=== PATIENT | female | born 1955 | race Caucasian/White ===

== ENCOUNTER → 2017-09-27 | Outpatient (POV) | payer BC, SELFPAY | PROVIDERS: Family Provider Family Medicine; PCP Family Medicine; Visit Provider Specialist | DX: R20.2 Paresthesia of skin (principal); M79.605 Pain in left leg; M79.604 Pain in right leg | CPT/HCPCS: 95886; 95908 ==

== ENCOUNTER → 2017-11-25 09:07 | Outpatient (POV) | payer BC, SELFPAY | PROVIDERS: Visit Provider Dermatology | DX: Z00.00 Encounter for general adult medical examination without abnormal findings (principal) ==

== ENCOUNTER → 2018-01-10 11:29 | Outpatient (POV) | payer BC, SELFPAY | PROVIDERS: Visit Provider Physician Assistant | DX: Z00.00 Encounter for general adult medical examination without abnormal findings (principal) ==

== ENCOUNTER → 2018-02-07 10:37 | Outpatient (POV) | payer BC, SELFPAY | PROVIDERS: Visit Provider Physician Assistant | DX: Z00.00 Encounter for general adult medical examination without abnormal findings (principal) ==

== ENCOUNTER → 2018-03-07 08:14 | Outpatient (POV) | payer BC, SELFPAY | PROVIDERS: Family Provider Family Medicine; Visit Provider Physician Assistant | DX: Z00.00 Encounter for general adult medical examination without abnormal findings (principal) ==

== ENCOUNTER → 2018-06-09 10:41 | Outpatient (CLI) | payer BC, SELFPAY ==
[2018-06-09 11:13] LABS: Basophils % 0.9 % (0.1-2.0); Eosinophils # 0.2 K/mm3 (0.0-0.4); Hematocrit 38.9 % (37.0-47.0); Hemoglobin 12.7 g/dL (12.2-16.2); Lymphocytes # 1.5 K/mm3 (0.7-4.5); Lymphocytes % 28.6 K/mm3 (10-50); Mean Corpuscular HGB Conc 32.7 g/dL (31.8-35.4); Mean Corpuscular Hemoglobin 29.8 pg (27.0-31.2); Mean Corpuscular Volume 91.2 fl (81-99); Mean Platelet Volume 8.8 fl (7.4-10.4); Monocytes # 0.2 K/mm3 (0.1-1.0); Monocytes % 4.2 % (1.7-9.3); Neutrophils # 3.2 K/mm3 (1.8-7.8); Neutrophils % 63.3 % (37.0-80.0); Platelet Count 246 K/mm3 (142-424); Red Blood Count 4.27 M/mm3 (4.20-5.40); Red Cell Distribution Width 13.2 % (11.5-17.5); White Blood Count 5.1 K/mm3 (4.8-10.8)
[2018-06-09 11:38] LABS: Alanine Aminotransferase 25 U/L (12-78); Albumin Level 3.7 gm/dL (3.4-5.0); Alkaline Phosphatase 90 U/L (46-116); Anion Gap 9.3 mEq/L (5-15); Aspartate Amino Transferase 16 U/L (15-37); Bilirubin,Total 0.4 mg/dL (0.2-1.0); Blood Urea Nitrogen 21 mg/dL (7-18); Calcium 8.7 mg/dL (8.5-10.1); Carbon Dioxide 28 mmol/L (21.0-32.0); Chloride 108 mmol/L (98-107); Chol/HDL Ratio 4.1 (1-3.5); Cholesterol 184 mg/dL (140-200); Creatinine,Serum 0.84 mg/dL (0.55-1.02); Estimated Glomerular Filt Rate 69 ml/min (>60); GFR (African American) 83 ML/MIN (>60); Globulin 3.6 gm/dl (1.3-3.2); Glucose 91 mg/dL (74-106); HDL Cholesterol 45 mg/dL (29-89); LDL Cholesterol 103 mg/dL (0-130); Magnesium 2.1 mg/dL (1.4-2.2); Potassium 3.3 mmoL/L (3.5-5.1); Sodium 142 mmol/L (136-145); Total Protein,Serum 7.3 gm/dL (6.4-8.2); Triglycerides 181 mg/dL (30-200); VLDL Cholesterol 36 mg/dL (0-40)
[2018-06-10 17:12] LABS: Folate >20.0 ng/mL (>3.0); Vitamin B12 459 pg/mL (232-1245)
== END ==
PROVIDERS: Visit Provider Family Medicine
DX: I10 Essential (primary) hypertension (principal); E78.5 Hyperlipidemia, unspecified; G62.9 Polyneuropathy, unspecified
CPT/HCPCS: 36415; 80053; 80061; 82607; 82746; 83735; 85025

== ENCOUNTER → 2018-11-01 10:06 | Outpatient (CLI) | payer BC, SELFPAY ==
--- NOTE | 2018-11-01 10:11 | MM_ITS ---
MM Dig screening mamm BI w/CAD CAD Screening COMPARISON: Digital mammograms with CAD 09/20/2017 and 09/11/2016 INDICATION: There is no personal or family history of breast cancer. There has been a previous biopsy left breast for benign disease. TECHNIQUE: Standard CC and MLO images were obtained. R2 CAD reviewed. FINDINGS: Mild to moderate scattered fibroglandular densities are seen throughout both breasts. Again noted is a stable asymmetric fibroglandular density upper outer quadrant right breast. There is no suspicious lesion and no suspicious microcalcifications. IMPRESSION: Stable exam with no suspicious lesion seen. BI-RADS Category: 2 Benign Finding(s) RECOMMENDED FOLLOW-UP: 1YR - 1 YEAR FOLLOW-UP (A letter has been sent to the patient regarding results of the study.)
== END ==
PROVIDERS: PCP Family Medicine; Visit Provider Family Medicine
DX: Z12.31 Encounter for screening mammogram for malignant neoplasm of breast (principal)
CPT/HCPCS: 77067

== ENCOUNTER → 2019-11-06 08:17 | Outpatient (CLI) | payer BC, SELFPAY ==
--- NOTE | 2019-11-06 08:20 | MM_ITS ---
PROCEDURE: MM DIG SCREENING MAMM BI W/CAD Patient Age:64Y CLINICAL INDICATION: SCREENING routine screening mammogram. Takes estrogen. Previous hysterectomy age 41. Previous benign surgical excisional biopsy left breast Family history: Noncontributory COMPARISON: [facility] DIG MAMM-SCREEN [facility] from 08/26/2015 [facility] DIG MAMM-SCREEN [facility] from 09/11/2016 [facility] DIG MAMM-SCREEN [facility]Y W/CAD from 09/20/2017 [facility] MM Dig screening mamm BI w/CAD from 11/01/2018 TECHNIQUE: Standard CC and MLO images were obtained. R2 CAD reviewed. FINDINGS: Fatty changes both breast with only minimal residual fibroglandular elements most evident towards upper-outer quadrant right breast the of this yields a small asymmetric area of density the right breast which dissipates 1 one-view to another and appear stable. Not of concern. Merely minimal fibroglandular tissue at upper-outer quadrant bilaterally again noted. Left breast is unremarkable: Stable. Bilateral follow-up in 1 year recommended IMPRESSION: A stable bilateral mammogram. No areas of concern; no significant change Bilateral follow-up 1 year recommended BI-RAD Category: 1 Negative FOLLOW-UP: 1YR 1 Year Follow-up the (A letter has been sent to the patient regarding results of the study.) Dictated by: Manolo Coelho MD 11/08/2019 15:12 Electronically signed by Manolo Coelho MD in [place] 11/08/2019 15:12
== END ==
PROVIDERS: PCP Family Medicine; Visit Provider Family Medicine
DX: Z12.31 Encounter for screening mammogram for malignant neoplasm of breast (principal)
CPT/HCPCS: 77067

== ENCOUNTER → 2020-03-14 10:05 | Outpatient (CLI) | payer BC, SELFPAY ==
--- NOTE | 2020-03-14 10:16 | XR_ITS ---
PROCEDURE: XR KNEE LT 3V CLINICAL INDICATION: S/P FALL, KNEE PAIN COMPARISON: No exams were available for comparison FINDINGS: No fracture or dislocation. No lytic or blastic change. There is normal mineralization. There are mild osteoarthritic changes of the medial compartment and patellofemoral joint. Other findings:None. IMPRESSION: Mild osteoarthritis, no acute finding Dictated by: Uvaldo Lopez MD 03/14/2020 12:59 Electronically signed by Uvaldo Lopez MD in [place] 03/14/2020 12:59
== END ==
PROVIDERS: PCP Family Medicine; Visit Provider Family Medicine
DX: M25.562 Pain in left knee (principal)
CPT/HCPCS: 73562

== ENCOUNTER → 2020-05-22 08:44 | Outpatient (CLI) | payer BC, SELFPAY ==
--- NOTE | 2020-05-22 08:49 | XR_ITS ---
PROCEDURE: XR DEXA AXIAL SKELETON CLINICAL HISTORY: POST MENOPAUSAL COMPARISON: No exams were available for comparison FINDINGS: Right hip neck density is 0.959 with a t-score of 1.0. Left hip neck density is 0.903 with a t-score of 0.5. Lumbar spine total density is 1.126 with a t-score of 0.7. IMPRESSION: This patient is considered normal according to the World Health Organization criteria. Fracture risk is low. Based on these results of follow-up exam is recommended in 2 years Dictated by: Uvaldo Lopez MD 05/22/2020 17:33 Electronically signed by Uvaldo Lopez MD in [place] 05/22/2020 23:10
== END ==
PROVIDERS: PCP Family Medicine; Visit Provider Family Medicine
DX: Z78.0 Asymptomatic menopausal state (principal)
CPT/HCPCS: 77080

== ENCOUNTER → 2020-06-06 12:16 | Outpatient (CLI) | payer BC, SELFPAY ==
--- NOTE | 2020-06-06 12:42 | MR_ITS ---
PROCEDURE: MR LUMBAR SPINE WO CON CLINICAL INDICATION: lumbar pain, lower extremity pain LBP. LT LEG PAIN, NUMBNESS, AND TINGLING. [id number]. NO INJURY. PRIOR X-RAY 09-27-17 COMPARISON: LS5 LUMBAR SPINE 5 VIEWS from 09/27/2017 TECHNIQUE: Standard multiplanar multiecho sequences are performed without contrast. 3-D MIP and myelographic images are also rendered and reviewed FINDINGS: There is normal alignment. The spinal cord ends at the T12 level. L1-L2: Unremarkable. L2-L3: Minimal bulging disc with mild degenerative disc disease with mild facet and ligamentum hypertrophy. Small anterior osteophytes. L3-L4: Unremarkable. L4-5: Minimal bulging disc. There is a small right broad-based lateral disc protrusion along with mild facet and ligamentum hypertrophy. There is moderate to severe right foraminal narrowing.. L5-S1: Asymmetric bulging disc eccentric toward the left abutting the anterior aspect of the left S1 nerve root. No extruded herniated disc is evident. No canal stenosis. IMPRESSION: 1. L2-L3: Minimal bulging disc with mild degenerative disc disease with mild facet and ligamentum hypertrophy. Small anterior osteophytes. 2. L4-5: Minimal bulging disc. There is a small right broad-based lateral disc protrusion along with mild facet and ligamentum hypertrophy. There is moderate to severe right foraminal narrowing.. 3. L5-S1: Asymmetric bulging disc eccentric toward the left abutting the anterior aspect of the left S1 nerve root. Dictated by: Uvaldo Lopez MD 06/07/2020 11:37 Electronically signed by Uvaldo Lopez MD in [place] 06/07/2020 11:37
== END ==
PROVIDERS: PCP Family Medicine; Visit Provider Specialist
DX: G89.29 Other chronic pain (principal); M54.16 Radiculopathy, lumbar region; M79.604 Pain in right leg; M79.605 Pain in left leg; R20.2 Paresthesia of skin
CPT/HCPCS: 72148; 76376

== ENCOUNTER → 2020-07-25 13:40 | Outpatient (CLI) | payer BC, SELFPAY | PROVIDERS: Visit Provider Urology | DX: N39.0 Urinary tract infection, site not specified (principal) | CPT/HCPCS: 87086; 87088; 87186 ==

== ENCOUNTER 2020-08-16 09:00 | Outpatient (RCR) | payer BC, SELFPAY | END 2020-08-16 09:47 | disposition home or self-care (01) | LOC: PT 09:00 | PROVIDERS: PCP Family Medicine; Visit Provider Neurological Surgery | DX: M51.16 Intervertebral disc disorders with radiculopathy, lumbar region (principal) | CPT/HCPCS: 97010; 97014; 97110; 97163; G0283 ==

== ENCOUNTER → 2020-11-08 08:26 | Outpatient (CLI) | payer BC, SELFPAY ==
--- NOTE | 2020-11-08 08:29 | MM_ITS ---
PROCEDURE: MM DIG SCREENING MAMM BI W/CAD Digital Breast Tomosynthesis Included CLINICAL INDICATION: SCREENING There is no personal or family history of breast cancer. There has been a previous biopsy left breast for benign disease. The patient currently is on estrogen. COMPARISON: Digital mammograms 11/06/2019 TECHNIQUE: Standard CC and MLO images and 3D Tomosynthesis was obtained. R2 CAD reviewed. FINDINGS: Mild to moderate scattered fibroglandular densities are seen throughout both breast and the findings are bilateral and symmetrical. There are no CAD markings. Wade images were reviewed showing no suspicious abnormality in either breast. There are no suspicious microcalcifications. IMPRESSION: Fibrofatty parenchyma with no suspicious lesions seen BI-RAD Category: 1 Negative FOLLOW-UP: 1YR 1 Year Follow-up (A letter has been sent to the patient regarding results of the study.) Dictated by: Dr. Gregg Loya MD 11/10/2020 11:17 Dr. Gregg Loya MD in [place] 11/10/2020 11:17
== END ==
PROVIDERS: PCP Family Medicine; Visit Provider Family Medicine
DX: Z12.31 Encounter for screening mammogram for malignant neoplasm of breast (principal)
CPT/HCPCS: 77063; 77067

== ENCOUNTER 2021-01-05 02:46 | Inpatient (IN) | payer BC, SELFPAY ==
[2021-01-05] VITALS (13 sets, daily range): BP systolic 132–184; BP diastolic 52–96; PULSE 68–90; RESP 14–22; TEMP 36.6–36.9; O2SAT 91–97; BMI 28.3; BMI 24.1
--- NOTE | 2021-01-05 03:04 | CT_ITS ---
PROCEDURE: CT ABDOMEN PELVIS W CON CLINICAL INDICATION: ruq,rlq abd pain/flank pain COMPARISON: No exams were available for comparison TECHNIQUE: IV Contrast: 75ML OPTIRAY 350 Oral Contrast none given Axial images obtained with sagittal and coronal reformats. All CT scans at the facility use one or more dose reduction, viz: automated exposure control, ma/kV adjustment per patient size (including targeted exams where dose is matched to indication, i.e. head), or iterative reconstruction technique. FINDINGS: Lower thorax: There is mild atelectasis in the posterior gutters bilaterally. ABDOMEN: Liver: Liver is normal in size and no focal lesions. There is borderline hepatic steatosis. Gallbladder: Prominent hydropic appearance of the gallbladder with no definite gallstones seen Pancreas: There is a moderate diffuse peripancreatic fat stranding suggesting mild or early inflammatory change, there is minimal fluid tracking along the right and left anterior pararenal space. Spleen: unremarkable Adrenals: unremarkable Kidneys/ureters: The kidneys are normal in size and show symmetrical function. There is a tiny benign-appearing cortical cyst upper pole left kidney. ABDOMEN & PELVIS: Stomach bowel: There may be a small hiatal hernia. The stomach is unremarkable. The descending duodenum and duodenal sweep are fluid-filled and mildly distended likely reflecting a mild ileus secondary to the inflammatory changes of the pancreas. The small bowel is normal. There is moderate stool in the cecum and ascending colon. There is mild diffuse diverticulosis of the descending colon. There is no diverticulitis. Peritoneum: No abnormal fluid collections. No obvious inflammatory changes. No free air. Lymph nodes: No enlarged lymph nodes apparent. Vasculature: No evidence of abdominal aortic aneurysm. No retroperitoneal hemorrhage evident. Bones: No acute fracture PELVIS: Reproductive: The patient is post hysterectomy. Bladder: The urinary bladder is partially distended with urine, there is no free fluid in the pelvis. Appendix: Post appendectomy IMPRESSION: Mild diffuse early acute pancreatitis inflammatory changes slightly more prominent about the head the pancreas than body or tail. Mild reflex ileus of the duodenal sweep and similar reflex hydropic change of the gallbladder. Mild diffuse hepatic steatosis Dictated by: Dr. Gregg Loya MD 01/05/2021 08:48 Dr. Gregg Loya MD in [place] 01/05/2021 08:48
[2021-01-05 03:08] LABS: Microscopic, Urine URINE MICROSCOPIC (MICROSCOPIC)
[2021-01-05 03:11] LABS: Appearance,Urine CLOUDY (Clear); Blood, Urine Negative (Negative); Color,Urine DK YELLOW (Yellow); Glucose,Urine (UA) Negative (Negative); Ketones,Urine Negative (Negative); Leukocyte Esterase,Urine Negative (Negative); Nitrate,Urine POSITIVE (Negative); Protein,Urine Negative (Negative); Specific Gravity, Urine 1.025 (1.005-1.030); Urobilinogen,Urine 0.2 EU/dl (0.2)
[2021-01-05 03:15] LABS: Bilirubin,Urine 1+ (Negative)
[2021-01-05 03:16] LABS: Basophils % 0.3 % (0.1-2.0); Eosinophils # 0.1 K/mm3 (0.0-0.4); Eosinophils % 1.2 % (0.1-12.0); Hematocrit 40.7 % (37.0-47.0); Hemoglobin 13.4 g/dL (12.2-16.2); Lymphocytes # 0.7 K/mm3 (0.7-4.5); Lymphocytes % 6.6 % (10-50); Mean Corpuscular HGB Conc 32.9 g/dL (31.8-35.4); Mean Corpuscular Hemoglobin 31.4 pg (27.0-31.2); Mean Corpuscular Volume 95.5 fl (81-99); Monocytes # 0.3 K/mm3 (0.1-1.0); Monocytes % 2.4 % (1.7-9.3); Neutrophils % 89.6 % (37.0-80.0); Platelet Count 194 K/mm3 (142-424); Red Blood Count 4.26 M/mm3 (4.20-5.40); Red Cell Distribution Width 13.8 % (11.5-17.5); White Blood Count 11.1 K/mm3 (4.8-10.8)
[2021-01-05 03:16] LABS: Amorphous Sediment,Urine 4+ /lpf; Squamous Epithelial Cell,Urine 20-50 #/hpf (0-5)
[2021-01-05 03:20] LABS: MANUAL DIFFERENTIAL MANUAL DIFFERENTIAL (MANUAL DIFF)
[2021-01-05 03:30] LABS: Alanine Aminotransferase 185 U/L (12-78); Albumin Level 4.6 g/dl (3.5-5.0); Alkaline Phosphatase 159 U/L (38-126); Anion Gap 13.6 mEq/L (5-15); Aspartate Amino Transferase 230 U/L (14-36); Bilirubin,Direct 0.9 mg/dl (0.0-0.4); Bilirubin,Indirect 0.7 mg/dL (0.0-0.9); Bilirubin,Total 1.6 mg/dl (0.2-1.3); Bilirubin,Unconjugated 0.7 mg/dL (0.0-1.1); Blood Urea Nitrogen 16 mg/dl (7-17); Calcium 9.7 mg/dl (8.4-10.2); Carbon Dioxide 25 mmol/L (22.0-30.0); Chloride 106 mmol/L (98-107); Creatinine Clearance Estimated 61 mL/min (50-200); Estimated Glomerular Filt Rate 84 ml/min (>60); GFR (African American) 102 ML/MIN (>60); Glucose 188 mg/dl (74-100); Lymphocytes % 6 % (10-50); Monocytes % 1 % (2-9); Neutrophils % 88 % (42-76); Platelet Estimate Normal; Potassium 3.6 mmoL/L (3.5-5.1); RBC Morphology Normal; Sodium 141 mmol/L (136-145); Total Cells Counted 100; Total Protein,Serum 8.4 g/dl (6.3-8.2)
[2021-01-05 03:40] LABS: Amylase 2245 U/L (30-110)
[2021-01-05 03:41] LABS: Lipase 17179 U/L (23-300)
--- NOTE | 2021-01-05 03:53 | HMH.EDGENADL ---
ED Disposition Clinical Impression: Pancreatitis Qualifiers: Chronicity: acute Pancreatitis type: unspecified pancreatitis type Acute pancreatitis complication: no infection or necrosis Qualified Code(s): K85.90 - Acute pancreatitis without necrosis or infection, unspecified Disposition: Admitted As Inpatient Condition on Discharge: Good Referrals: Avinash Hernandez MD [Primary Care Provider] - - Critical Care Critical Care Time: No Attestation: On 01/05/21, the high probability of a clinically significant, sudden or life threatening deterioration of the following system(s) required my full and direct attention, intervention and personal management. The time I documented below is in addition to time spent performing reported procedures but includes the following listed in this critical care notation. Medical Decision Making - Medical Records Medical records reviewed: Yes: I reviewed the patient's medical records. - Keo Inquiry Pt receiving controlled substance: No Vital Signs: 01/05/21 02:59 Temperature 98.2 F Temperature Source Oral Pulse Rate [Right Brachial] 78 Respiratory Rate 17 Blood Pressure [Right Arm] 148/54 H Blood Pressure Mean [Right Arm] 85 Blood Pressure Source [Right Arm] Automatic Cuff Blood Pressure Position [Right Arm] Sitting 02 Sat by Pulse Oximetry 97 Oxygen Delivery Method Room Air - Lab Data Lab Results 01/05/21 02:52: Urine Color Dk yellow, Urine Appearance Cloudy, Urine pH 7.0, Ur Specific [place] 1.025, Urine Protein Negative, Urine Glucose (UA) Negative, Urine Ketones Negative, Urine Blood Negative, Urine Nitrate Positive, Urine Bilirubin 1+ A, Urine Urobilinogen 0.2, Ur Leukocyte Esterase Negative, Ur Squamous Epith Cells 20-50, Amorphous Sediment 4+, 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 01/05/21 03:05: WBC 11.1 H, RBC 4.26, Hgb 13.4, Hct 40.7, MCV 95.5, MCH 31.4 H, MCHC 32.9, RDW 13.8, Plt Count 194, MPV 10.0, Neut % (Auto) 89.6 H, Lymph % (Auto) 6.6 L, [place] % (Auto) 2.4, Eos % (Auto) 1.2, Baso % (Auto) 0.3, Neut # (Auto) 10.0 H, Lymph # (Auto) 0.7, [place] # (Auto) 0.3, Eos # (Auto) 0.1, Baso # (Auto) 0.0, Total Counted 100, Neutrophils % (Manual) 88 H, Band Neutrophils % 5.0, Lymphocytes % (Manual) 6 L, Monocytes % (Manual) 1 L, Platelet Estimate Normal, RBC Morphology Normal 01/05/21 03:05: Sodium 141, Potassium 3.6, Chloride 106, Carbon Dioxide 25, Anion Gap 13.6, BUN 16, Creatinine 0.70, Estimated Creat Clear 61, Estimated GFR 84, Est GFR ( Amer) 102, Glucose 188 H, Calcium 9.7, Total Bilirubin 1.6 H, Direct Bilirubin 0.9 H, Conjugated Bilirubin 0.0, Indirect Bilirubin 0.7, Unconjugated Bilirubin 0.7, AST 230 H, ALT 185 H, Alkaline Phosphatase 159 H, Total Protein 8.4 H, Albumin 4.6, Amylase 2245 H*, Lipase 30993 H Result diagrams: 01/05/21 03:05 01/05/21 03:05 Orders (Tests/Meds): ED MEDICATIONS Generic Name Dose Route Start Last Admin Trade Name Freq PRN Reason Stop Dose Admin Hydromorphone HCl 1 mg 01/05/21 05:05 Hydromorphone 2mg/Ml Syringe IV 02/04/21 05:04 Q2HP PRN Severe Pain Sodium Chloride 1,000 mls @ 999 mls/hr 01/05/21 03:15 01/05/21 03:09 Sod Chlor 0.9% 1000ml Bag IV 01/05/21 04:15 999 mls/hr .Q1H1M NANCY Administration Lactated Ringer's 1,000 mls @ 125 mls/hr 01/05/21 05:15 Lactated Ringer's 1000 Ml Bag IV 02/04/21 05:14 .Q8H NANCY Discontinued Medications Generic Name Dose Route Start Last Admin Trade Name Freq PRN Reason Stop Dose Admin Ketorolac Tromethamine 30 mg 01/05/21 03:04 01/05/21 03:09 Ketorolac 30mg/Ml Vial IV 01/05/21 03:05 30 mg ONCE ONE Administration Morphine Sulfate 4 mg 01/05/21 03:18 01/05/21 03:27 Morphine 4mg/Ml Syringe IV 01/05/21 03:19 4 mg ONCE ONE Administration Ondansetron HCl 4 mg 01/05/21 03:04 01/05/21 03:09 Ondansetron 4mg/2ml Vial IV 01/05/21 03:05 4 mg ONCE ONE Administration ORDERS Category Date Time Status CT abdomen pelvis w con Stat Cat Scan 02
--- NOTE | 2021-01-05 04:58 | PC.NURSE ---
Paganna Hernandez at this time
--- NOTE | 2021-01-05 05:00 | PC.NURSE ---
speaking with MD Lemuel at this time who is on for [facility]
--- NOTE | 2021-01-05 05:07 | PC.NURSE ---
PT ADMITTED, ROOM [id number] ASSIGNED PER CHARGE NURSE AT THIS TIME. ER AND REGISTRATION NOTIFIED
--- NOTE | 2021-01-05 05:07 | PC.NURSE ---
call placed to house for admission. m-m, pancreatitis, obs.
[2021-01-05 05:12] LABS: Chol/HDL Ratio 3.3 (1-3.5); Cholesterol 240 mg/dl (140-200); HDL Cholesterol 73 mg/dl (40-60); Triglycerides 258 mg/dl (30-150); VLDL Cholesterol 52 mg/dL (0-40)
[2021-01-05 05:22] LABS: Direct LDL Cholesterol 94.77 mg/dL (100-129)
--- NOTE | 2021-01-05 06:30 | PC.NURSE ---
PT ARRIVED TO FLOOR VIA W/C FROM ED WITH STAFF [id number]
--- NOTE | 2021-01-05 08:40 | P.CONPHA_ITS ---
[facility] Pharmacy VTE Monitoring - Patient Demographics Admission date: 01/05/21 Report Date: 01/05/21 Time: 08:40 Allergies/Adverse Reactions: Patient Allergies amoxicillin [AMOXICILLIN] Allergy (Unknown, Verified 09/02/20 08:18) DIARRHEA atorvastatin [ATORVASTATIN] Allergy (Unknown, Verified 09/02/20 08:18) CAN'T WALK cefuroxime Allergy (Unknown, Verified 09/02/20 08:18) duloxetine Allergy (Unknown, Verified 09/02/20 08:18) Height: 1.65 m Weight: 65.771 kg Patient Problems: Current Active Problems Pancreatitis (Acute) - VTE Risk Labs: VTE Related Lab Results Hgb 13.4 g/dL (12.2-16.2) 01/05/21 03:05 Hct 40.7 % (37.0-47.0) 01/05/21 03:05 Plt Count 194 K/mm3 (142-424) 01/05/21 03:05 BUN 16 mg/dl (7-17) 01/05/21 03:05 Creatinine 0.70 mg/dl (0.52-1.04) 01/05/21 03:05 Estimated Creat Clear 61 mL/min (50-200) 01/05/21 03:05 VTE Score: 4 VTE Risk Level: Low Risk - Prophylaxis VTE Prophylaxis Ordered?: Yes Types of VTE Prophylaxis: TEDS Knee High Location of Applied Device: Bilateral Lower Extremeties
--- NOTE | 2021-01-05 08:40 | HMH.PHAINT ---
MEDICATION RECONCILIATION COMPLETED ON PATIENT USING EXTERNAL FILL HISTORY FROM PHARMACY AND LISTS FROM MD OFFICES. -SAMI LÓPEZD
--- NOTE | 2021-01-05 09:16 | HMH.HP ---
*Admission Date: 01/05/21 *Chief complaint: abdominal pain and vomiting *History of present illness: Ms. 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 Her symptoms started 2 nights ago with some mild right-sided pain. When she woke up yesterday morning she took some Tums and ate breakfast and felt a little better. Throughout the day yesterday her pain progressively worsened. She tried taking more Tums last night with no relief. She finally presented to the emergency room. She denies fever. No change in her bowel habits. Her bowels move normally this morning. On evaluation emergency room, she was found to have an elevated amylase and lipase and CT scan of the abdomen was consistent with pancreatitis with a hydropic gallbladder. She has been admitted for further evaluation and treatment. [facility] History Medical History: Reports:: Hypertension, Migraine, Urinary Tract Infection Denies:: Cancer, Diabetes Mellitus Type 1, Diabetes Mellitus Type 2, MRSA *Have you ever received a pneumonia vaccine?: No *Have you received a flu vaccine this season?: No Other Medical History: Reports: Arthritis (left hip), Hormone Therapy (premarin), Other Other Surgeries: Yes: Appendectomy, Colonoscopy, Hysterectomy-Total, Other (cyst removed from left breast) Amputation: No Fractures: No - *Social History Last grade of school completed: High school graduate Smoking Status: Never smoker Alcohol Intake: never Alcohol Intake Frequency:: other Substance Use Type: denies use *Occupational Status:: retired Housing: house Household Members: spouse *Travel in the last 8 weeks: None Family Hx:: Diabetes, Hyperlipidemia, Hypertension 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: Spontaneous Review of Systems - Constitutional Denies anorexia, Denies body ache(s), Denies chills, Denies fever(s) - Eyes Denies change in vision - ENT Reports dry mouth, Denies abnormal hearing, Denies dizziness - *Cardiovascular Denies chest pain, Denies leg swelling - *Respiratory Denies chest congestion, Denies cough, Denies pain on inspiration - *Gastrointestinal Reports other (See HPI) - *Genitourinary Denies abnormal vaginal bleeding, Denies difficulty urinating - *Musculoskeletal Reports back pain (chronic) - Integumentary/Breasts Denies hair loss, Denies rash - *Neurologic Denies dizziness, Denies headache(s), Denies loss of vision - Psychiatric Denies anxiety, Denies confusion, Denies depression - Endocrine Denies cold intolerance - Hematologic/Lymphatic Denies easy bruising - Allergic/Immunologic Reports seasonal runny nose Meds Home Medications Medication Instructions Recorded Confirmed Type losartan 100 1 tab PO DAILY 30 Days #30 05/02/18 01/05/21 History mg-hydrochlorothiazide 12.5 mg tablet pantoprazole 40 mg tablet,delayed 40 mg PO DAILY 30 Days #30 05/02/18 01/05/21 History release cetirizine 10 mg capsule 10 mg PO DAILY 11/10/18 01/05/21 History fluticasone propionate 50 2 spray NS DAILY 11/10/18 01/05/21 History mcg/actuation nasal spray,suspension magnesium chloride 71.5 mg 71.5 mg PO BID tab 11/10/18 01/05/21 History (magnesium chloride) tablet,delayed release dicyclomine 10 mg capsule 10 mg PO QIDP PRN #120 cap 10/24/19 01/05/21 History lactobacillus combination no.8 3 3,000 mmu cells PO DAILY 11/20/19 01/05/21 History billion cell capsule vitamin B comp and C no.3 15 mg-10 1 cap PO DAILY 11/20/19 01/05/21 History mg-50 mg-5 mg-300 mg capsule lubiprostone 8 mcg capsule 8 mcg PO DAILY 30 Days cap 09/02/20 01/05/21 History oxybutynin chloride 10 mg 10 mg PO DAILY 09/02/20 01/05/21 History tablet,extended release 24 hr sulind
--- NOTE | 2021-01-05 15:32 | PC.NURSE ---
patient started vomiting called md international representative and he stated to order zofran 4mg q8hr prn for nausea phenergran 12.5mg [id number] for nausea and then okayed tylenol 500mg q6hr prn for pain or fever
--- NOTE | 2021-01-05 18:46 | PC.NURSE ---
patient has had pain and nausea through out the day. slight headache. pain meds have seemed to be more effective through out the day, with more break in between doses. has been sleeping some. rings out as needed. ambulates in room with stand by assistance. vitals stable.
[2021-01-06] VITALS (11 sets, daily range): BP systolic 129–152; BP diastolic 47–73; PULSE 94–104; RESP 16–22; TEMP 36.8–37.2; O2SAT 94–96; BMI 24.1; BMI 24.2
--- NOTE | 2021-01-06 05:00 | PC.NURSE ---
pt has reported abdonminal pain all night. prn med given with little relief. pt has refused prn pain medication at times when reporting pain. attempts made to educate patient over pain control at those times. pt has had nausea and dry heaving. attempted to give prn med and was refused. pt eventually consented to the zofran. iv patent and infusing per order. alert and oriented. standby assist when ambulating. call light in reach. will continue to monitor.
[2021-01-06 06:59] LABS: Basophils % 0.1 % (0.1-2.0); Hematocrit 36.8 % (37.0-47.0); Lymphocytes % 5.2 % (10-50); Mean Corpuscular HGB Conc 32.5 g/dL (31.8-35.4); Mean Corpuscular Hemoglobin 31.3 pg (27.0-31.2); Mean Corpuscular Volume 96.3 fl (81-99); Mean Platelet Volume 8.6 fl (7.4-10.4); Monocytes # 0.8 K/mm3 (0.1-1.0); Neutrophils # 17.9 K/mm3 (1.8-7.8); Neutrophils % 90.6 % (37.0-80.0); Platelet Count 221 K/mm3 (142-424); Red Blood Count 3.83 M/mm3 (4.20-5.40); White Blood Count 19.7 K/mm3 (4.8-10.8)
[2021-01-06 07:03] LABS: MANUAL DIFFERENTIAL MANUAL DIFFERENTIAL (MANUAL DIFF)
[2021-01-06 07:09] LABS: Chloride 109 mmol/L (98-107); Sodium 141 mmol/L (136-145)
[2021-01-06 07:10] LABS: Potassium 3.6 mmoL/L (3.5-5.1)
[2021-01-06 07:12] LABS: Alanine Aminotransferase 86 U/L (12-78); Alkaline Phosphatase 100 U/L (38-126); Amylase 408 U/L (30-110); Anion Gap 6.6 mEq/L (5-15); Aspartate Amino Transferase 50 U/L (14-36); Bilirubin,Total 0.5 mg/dl (0.2-1.3); Blood Urea Nitrogen 13 mg/dl (7-17); Calcium 8.8 mg/dl (8.4-10.2); Carbon Dioxide 29 mmol/L (22.0-30.0); Creatinine Clearance Estimated 59 mL/min (50-200); Estimated Glomerular Filt Rate 72 ml/min (>60); GFR (African American) 87 ML/MIN (>60); Glucose 102 mg/dl (74-100)
[2021-01-06 07:13] LABS: Albumin Level 3.3 g/dl (3.5-5.0); Albumin/Globulin Ratio 1.1 (1.1-1.8); Globulin 3.1 g/dL (1.3-3.2); Total Protein,Serum 6.4 g/dl (6.3-8.2)
[2021-01-06 07:29] LABS: Lipase 1031 U/L (23-300)
--- NOTE | 2021-01-06 08:00 | US_ITS ---
PROCEDURE: US GALLBLADDER CLINICAL INDICATION: pancreatitis COMPARISON: US RUQ US RUQ-(ABD LTD)1ORGAN/QUAD/FU from 04/09/[address] ABDOMEN PELVIS W CON from 01/05/2021 FINDINGS: There is a small amount of free fluid adjacent to the gallbladder. No additional free fluid visualized in the right upper quadrant. Pancreas: Partial visualization of the pancreas. This is in indistinctness of the pancreatic parenchyma in the adjacent fat which would be consistent with the clinical diagnosis of pancreatitis. There is no pancreatic ductal dilatation. There is no pancreatic necrosis in the visualized areas of the pancreas on ultrasound. Liver: There is no intrahepatic biliary ductal dilatation. There is no suspicious hepatic cyst or mass. There is normal direction of flow of the portal vein.. There is appropriate direction of blood flow within a non dilated portal vein. The hepatic duct is nondistended. [place] with the cystic duct was low and her near the pancreatic head on prior CT therefore independent cystic duct dilatation cannot be excluded. Right kidney: Unremarkable appearing. No hydronephrosis. Gallbladder: There is a small amount of pericholecystic fluid. There is gallbladder wall thickening measuring 5.5 millimeters there is no cholelithiasis or sludge. IMPRESSION: Partial visualization the pancreas has the appearance which are consistent with the clinical diagnosis of pancreatitis which could be the etiology for cholecystitis. Pericholecystic fluid and gallbladder wall thickening are consistent with cholecystitis. Dictated by: Landy Bridges 01/06/2021 10:06 Landy Bridges in [place] 01/06/2021 10:06
[2021-01-06 08:20] LABS: Lymphocytes % 8 % (10-50); Monocytes % 3 % (2-9); Neutrophils % 89 % (42-76); Platelet Estimate Normal; RBC Morphology Normal; Total Cells Counted 100
--- NOTE | 2021-01-06 08:38 | PC.NURSE ---
PT DOWN FOR US OF GB @ [id number]
--- NOTE | 2021-01-06 10:02 | HMH.ACPN2 ---
<Courtney Albert - Last Filed: 01/06/21 10:02> Internal Medicine - PN: Subj *Date: 01/06/21 *Time: 10:02 Interval history: US completed; does not feel well. back is hurting at present; pain med helps but causes nausea. she is NPO. CBC this morning shows an increase in white blood cell count at 19,700 with a hemoglobin of 12 and hematocrit of 36.8. Blood chemistries show a sodium of 141 potassium 3.6, BUN is 13 and creatinine 0.8. Liver function studies have improved with an AST of 50 and ALT of 86 and alkaline phosphatase of 100. Triglycerides are elevated at 258 with total cholesterol 240. Amylase has decreased to 408 with a lipase of 1031. Exam Vital signs and Labs for Last 24 Hours: Temp Pulse Resp BP Pulse Ox 98.9 F 104 H 20 131/73 95 01/06/21 08:00 01/06/21 08:00 01/06/21 08:00 01/06/21 08:00 01/06/21 08:00 Laboratory Results - last 24 hr 01/06/21 06:21: WBC 19.7 H D, RBC 3.83 L, Hgb 12.0 L, Hct 36.8 L, MCV 96.3, MCH 31.3 H, MCHC 32.5, RDW 14.0, Plt Count 221, MPV 8.6, Neut % (Auto) 90.6 H, Lymph % (Auto) 5.2 L, [place] % (Auto) 4.0, Eos % (Auto) 0.0 L, Baso % (Auto) 0.1, Neut # (Auto) 17.9 H, Lymph # (Auto) 1.0, [place] # (Auto) 0.8, Eos # (Auto) 0.0, Baso # (Auto) 0.0, Total Counted 100, Neutrophils % (Manual) 89 H, Lymphocytes % (Manual) 8 L, Monocytes % (Manual) 3, Platelet Estimate Normal, RBC Morphology Normal 01/06/21 06:21: Sodium 141, Potassium 3.6, Chloride 109 H, Carbon Dioxide 29, Anion Gap 6.6, BUN 13, Creatinine 0.80, Estimated Creat Clear 59, Estimated GFR 72, Est GFR ( Amer) 87, Glucose 102 H, Calcium 8.8, Total Bilirubin 0.5, AST 50 H D, ALT 86 H D, Alkaline Phosphatase 100, Total Protein 6.4, Albumin 3.3 L D, Globulin 3.1, Albumin/Globulin Ratio 1.1, Amylase 408 H*, Lipase 1031 H I & O for Last 24 hours: Intake & Output 01/03/21 01/04/21 01/05/21 01/06/21 11:59 11:59 11:59 11:59 Intake Total 0 / 0 3003 / 3003 Balance 0 / 0 3003 / 3003 Weight 145 lb 145 lb Microbiology Reports for the Last 24 Hours: Microbiology 01/05/21 03:50 Nasopharyngeal Coronavirus COVID-19 PCR - Final - Constitutional no acute distress Comments: Sitting in comfort chair at bedside and trying to sleep. She is uncomfortable when awakened - *Routine Respiratory Exam Present: CTA bilaterally (Anteriorly and posteriorly) - *Routine Cardiovascular Exam Present: RRR - *Routine Abdominal Exam Present: soft, normoactive bowel sounds, tenderness - *Routine Extremities Exam Absent: edema, calf tenderness Assessment and Plan (1) HBP (high blood pressure) Status: Acute Category: Medical Code(s): I10 - Essential (primary) hypertension (2) Pancreatitis Status: Acute Qualifiers: Chronicity: acute Pancreatitis type: unspecified pancreatitis type Acute pancreatitis complication: no infection or necrosis Qualified Code(s): K85.90 - Acute pancreatitis without necrosis or infection, unspecified Category: Medical Code(s): K85.90 - Acute pancreatitis without necrosis or infection, unspecified (3) Hydrops of gallbladder Status: Acute Category: Medical Code(s): K82.1 - Hydrops of gallbladder (4) Dyslipidemia Status: Acute Category: Medical Code(s): E78.5 - Hyperlipidemia, unspecified (5) Chronic migraine Status: Acute Category: Medical Code(s): G43.709 - Chronic migraine without aura, not intractable, without status migrainosus (6) Lumbar disc disease Status: Acute Category: Medical Code(s): M51.9 - Unspecified thoracic, thoracolumbar and lumbosacral intervertebral disc disorder (7) GERD (gastroesophageal reflux disease) Status: Acute Category: Medical Code(s): K21.9 - Gastro-esophageal reflux disease without esophagitis - Assessment and plan all Dx Assessment and Plan for all problems:: Ultrasound is pending. GI consult. Continue with pain and nausea management And IV fluids <Avinash Hernandez - Last Filed: 01/06/21
--- NOTE | 2021-01-06 12:41 | HMH.CONS ---
*Admission Date: 01/05/21 *Reason for consult:: Acute pancreatitis *History of present illness: This is a 65 year old female who presented to the ER late Wednesday night after developing abdominal pain with nausea and vomiting. The pain eventually got worse and she came through the ER early Wednesday morning with complaints of right sided abdominal pain radiating around to her back. She was found to have a lipase of 17,179 and amylase of 2245. She also had bilirubin of 0.9, AST of 230, ALT of 185, and alk phos of 159. CT scan did show mild early acute pancreatitis with mild reflux ileus of duodenal sweep and hydropic change of the gallbladder. She did have moderate stool in the cecum and ascending colon and reports she has not had a bowel movement since she has been in the hospital. She did have a gallbladder ultrasound that showed pericholecystic fluid and gallbladder wall thickening consistent with cholecystitis plus haziness the peripancreatic fat consistent with pancreatitis. There is no evidence of strictures, blockages, gallstones sludge or stones in the CBD, biliary or pancreatic ducts. She did have elevation of her white blood cell count up to 19.7. However this morning she has had improvement of her liver enzymes and pancreatic enzymes. Her bilirubin is now 0.5, AST of 50, ALT of 86, and alk phos is normalized to 100. Her amylase and lipase is decreased significantly to 408 and 1031 respectively. She is quite uncomfortable with some abdominal distention pain throughout her abdomen and still radiating around to her right flank area. She has had mildly elevated triglycerides at 258, calcium has been within normal limits, she has no family history of pancreatic cancer or pancreatitis. She is a nondrinker and non-smoker. She denies any injury to her abdomen. She has had no medication changes in the past 6 months except for she did use dicyclomine 4 times, a day or 2 before developing abdominal pain. She has used medication the past. [facility] History Medical History: Reports:: Hypertension, Migraine, Urinary Tract Infection Denies:: Cancer, Diabetes Mellitus Type 1, Diabetes Mellitus Type 2, MRSA *Have you ever received a pneumonia vaccine?: No *Have you received a flu vaccine this season?: No Other Medical History: Reports: Arthritis (left hip), Hormone Therapy (premarin), Other Other Surgeries: Yes: Appendectomy, Colonoscopy, Hysterectomy-Total, Other (cyst removed from left breast) Amputation: No Fractures: No - *Social History Last grade of school completed: High school graduate Smoking Status: Never smoker Alcohol Intake: never Alcohol Intake Frequency:: other Substance Use Type: denies use *Occupational Status:: retired Housing: house Household Members: spouse *Travel in the last 8 weeks: None Family Hx:: Diabetes, Hyperlipidemia, Hypertension 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 Review of Systems - Constitutional Denies anorexia, Denies fever(s), Denies weight gain, Denies weight loss - Eyes Denies blurry vision, Denies sensitivity to light - ENT Denies dizziness, Denies hoarseness, Denies pain with swallowing, Denies throat swelling - *Cardiovascular Denies chest pain, Denies shortness of breath, Denies generalized swelling - *Respiratory Denies chest congestion, Denies cough, Denies shortness of breath, Denies wheezing - *Gastrointestinal Reports abdominal pain, Reports belching, Reports bloating, Reports constipation, Reports nausea, Reports vomiting, Denies difficulty swallowing, Denies incontinent of stools, Denies vomiting blood, Denies bright, red blood in stools, Denies black, tarry stools - *Musculoskeletal Denies joint pain, Denies muscle weakness, Denies numbness, Denies tingling - Integumentary/Breasts Denies yellowing of the skin, Denies new lesions, Denies itching, Denies rash - *Neurologic Denies abnormal hearing, Denies confusion, Denies dizziness, Denies headache(s), Denies loss of vision, Denies numbne
--- NOTE | 2021-01-06 14:51 | HMH.GSCON ---
*Admission Date: 01/05/21 *Reason for consult:: Cholecystitis *History of present illness: This is a 65-year-old female seen in consultation from the service of Dr. Hernandez for evaluation regarding cholecystitis. HPI from gastroenterology consultation is forwarded below. Forwarded from gastroenterology consultation: This is a 65 year old female who presented to the ER late Wednesday night after developing abdominal pain with nausea and vomiting. The pain eventually got worse and she came through the ER early Wednesday morning with complaints of right sided abdominal pain radiating around to her back. She was found to have a lipase of 17,179 and amylase of 2245. She also had bilirubin of 0.9, AST of 230, ALT of 185, and alk phos of 159. CT scan did show mild early acute pancreatitis with mild reflux ileus of duodenal sweep and hydropic change of the gallbladder. She did have moderate stool in the cecum and ascending colon and reports she has not had a bowel movement since she has been in the hospital. She did have a gallbladder ultrasound that showed pericholecystic fluid and gallbladder wall thickening consistent with cholecystitis plus haziness the peripancreatic fat consistent with pancreatitis. There is no evidence of strictures, blockages, gallstones sludge or stones in the CBD, biliary or pancreatic ducts. She did have elevation of her white blood cell count up to 19.7. However this morning she has had improvement of her liver enzymes and pancreatic enzymes. Her bilirubin is now 0.5, AST of 50, ALT of 86, and alk phos is normalized to 100. Her amylase and lipase is decreased significantly to 408 and 1031 respectively. She is quite uncomfortable with some abdominal distention pain throughout her abdomen and still radiating around to her right flank area. She has had mildly elevated triglycerides at 258, calcium has been within normal limits, she has no family history of pancreatic cancer or pancreatitis. She is a nondrinker and non-smoker. She denies any injury to her abdomen. She has had no medication changes in the past 6 months except for she did use dicyclomine 4 times, a day or 2 before developing abdominal pain. She has used medication the past. Review of Systems - Constitutional Denies chills - Eyes Denies change in vision - ENT Denies difficulty swallowing - *Cardiovascular Denies chest pain - *Respiratory Denies cough - *Gastrointestinal Reports abdominal pain - *Genitourinary Denies painful urination - *Musculoskeletal Denies tingling - Integumentary/Breasts Denies lesions - *Neurologic Denies abnormal hearing, Denies confusion, Denies dizziness, Denies headache(s), Denies loss of vision, Denies numbness, Denies tingling - Psychiatric Denies anxiety - Endocrine Denies cold intolerance - Hematologic/Lymphatic Denies easy bleeding - Allergic/Immunologic Denies GI upset with certain foods [facility] History Medical History: Reports:: Hypertension, Migraine, Urinary Tract Infection Denies:: Cancer, Diabetes Mellitus Type 1, Diabetes Mellitus Type 2, MRSA *Have you ever received a pneumonia vaccine?: No *Have you received a flu vaccine this season?: No Other Medical History: Reports: Arthritis (left hip), Hormone Therapy (premarin), Other Other Surgeries: Yes: Appendectomy, Colonoscopy, Hysterectomy-Total, Other (cyst removed from left breast) Amputation: No Fractures: No - *Social History Last grade of school completed: High school graduate Smoking Status: Never smoker Alcohol Intake: never Alcohol Intake Frequency:: other Substance Use Type: denies use *Occupational Status:: retired Housing: house Household Members: spouse *Travel in the last 8 weeks: None Family Hx:: Diabetes, Hyperlipidemia, Hypertension 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
--- NOTE | 2021-01-06 19:46 | PC.NURSE ---
Medicated per JAN for pain and nausea. Pt has been on phone majority of shift. Standby assistance to bathroom per pt's request d/t pain meds. No BM this shift. Miralax given. Tolerated clear liquid this afternoon w/ no complaint. Currently lying in bed watching tv. 2nd liter bolus currently infusing. VSS.
[2021-01-07] VITALS (22 sets, daily range): BP systolic 139–168; BP diastolic 61–88; PULSE 79–115; RESP 12–21; TEMP 36.4–43; O2SAT 94–99; BMI 25.0
--- NOTE | 2021-01-07 03:39 | PC.NURSE ---
Addendum entered by Leonila Freedman RN 01/07/21 04:31: Surgery consent signed and in pt's chart. Pre-op checklist filled out and in pt's chart. Bag of LR straight lined and hanging in room. Original Note: Pt is A&Ox4. Lung sounds diminished bilaterally t/o per auscultation. No cough noted. No edema noted. VSS. Hypoactive bowel sounds in all 4 quads, pt's abdomen has been tender x2 this shift. Pt medicated per JAN w/ favorable results. No other acute changes or complaints at this time.
[2021-01-07 06:49] LABS: Basophils % 0.1 % (0.1-2.0); Eosinophils # 0.1 K/mm3 (0.0-0.4); Eosinophils % 0.4 % (0.1-12.0); Hematocrit 34.3 % (37.0-47.0); Hemoglobin 11.2 g/dL (12.2-16.2); Lymphocytes # 1.1 K/mm3 (0.7-4.5); Lymphocytes % 6.5 % (10-50); Mean Corpuscular HGB Conc 32.5 g/dL (31.8-35.4); Mean Corpuscular Hemoglobin 31.2 pg (27.0-31.2); Mean Platelet Volume 9.4 fl (7.4-10.4); Monocytes # 0.8 K/mm3 (0.1-1.0); Monocytes % 4.5 % (1.7-9.3); Neutrophils # 15.1 K/mm3 (1.8-7.8); Neutrophils % 88.5 % (37.0-80.0); Platelet Count 208 K/mm3 (142-424); Red Blood Count 3.58 M/mm3 (4.20-5.40); Red Cell Distribution Width 13.6 % (11.5-17.5)
--- NOTE | 2021-01-07 06:51 | HMH.GSPN ---
Subjective Patient reports: still having pain Progress Note: A&P (1) HBP (high blood pressure) Status: Acute (2) Pancreatitis Status: Acute Assessment and plan: If overall inflammatory response within the gallbladder fossa is not too extensive, intraoperative cholangiogram will be completed at time of laparoscopic cholecystectomy. (3) Hydrops of gallbladder Status: Acute Assessment and plan: Laparoscopic cholecystectomy (possible intraoperative cholangiogram) planned for this morning (4) Dyslipidemia Status: Acute (5) Chronic migraine Status: Acute (6) Lumbar disc disease Status: Acute (7) GERD (gastroesophageal reflux disease) Status: Acute Exam Vital signs and Labs for Last 24 Hours: Temp Pulse Resp BP Pulse Ox 98.4 F 95 H 20 157/75 H 95 01/07/21 04:41 01/07/21 04:41 01/07/21 04:41 01/07/21 04:41 01/07/21 04:41 Laboratory Results - last 24 hr 01/06/21 06:21: WBC 19.7 H D, RBC 3.83 L, Hgb 12.0 L, Hct 36.8 L, MCV 96.3, MCH 31.3 H, MCHC 32.5, RDW 14.0, Plt Count 221, MPV 8.6, Neut % (Auto) 90.6 H, Lymph % (Auto) 5.2 L, [place] % (Auto) 4.0, Eos % (Auto) 0.0 L, Baso % (Auto) 0.1, Neut # (Auto) 17.9 H, Lymph # (Auto) 1.0, [place] # (Auto) 0.8, Eos # (Auto) 0.0, Baso # (Auto) 0.0, Total Counted 100, Neutrophils % (Manual) 89 H, Lymphocytes % (Manual) 8 L, Monocytes % (Manual) 3, Platelet Estimate Normal, RBC Morphology Normal 01/06/21 06:21: Sodium 141, Potassium 3.6, Chloride 109 H, Carbon Dioxide 29, Anion Gap 6.6, BUN 13, Creatinine 0.80, Estimated Creat Clear 59, Estimated GFR 72, Est GFR ( Amer) 87, Glucose 102 H, Calcium 8.8, Total Bilirubin 0.5, AST 50 H D, ALT 86 H D, Alkaline Phosphatase 100, Total Protein 6.4, Albumin 3.3 L D, Globulin 3.1, Albumin/Globulin Ratio 1.1, Amylase 408 H*, Lipase 1031 H I & O for Last 24 hours: Intake & Output 01/04/21 01/05/21 01/06/21 01/07/21 11:59 11:59 11:59 11:59 Intake Total 0 / 0 3003 / 3003 240 / 240 Balance 0 / 0 3003 / 3003 240 / 240 Weight 145 lb 145 lb 8.081 oz - Constitutional no acute distress - *Routine Respiratory Exam Absent: respiratory distress - *Routine Cardiovascular Exam Present: RRR - *Routine Abdominal Exam Present: soft, tenderness
[2021-01-07 06:53] LABS: MANUAL DIFFERENTIAL MANUAL DIFFERENTIAL (MANUAL DIFF)
[2021-01-07 06:55] LABS: Chloride 109 mmol/L (98-107); Potassium 3.8 mmoL/L (3.5-5.1); Sodium 138 mmol/L (136-145)
[2021-01-07 06:57] LABS: Blood Urea Nitrogen 9 mg/dl (7-17); Creatinine Clearance Estimated 59 mL/min (50-200); Estimated Glomerular Filt Rate 101 ml/min (>60); GFR (African American) 122 ML/MIN (>60)
[2021-01-07 06:58] LABS: Alanine Aminotransferase 44 U/L (12-78); Alkaline Phosphatase 92 U/L (38-126); Anion Gap 5.8 mEq/L (5-15); Aspartate Amino Transferase 26 U/L (14-36); Bilirubin,Total 0.5 mg/dl (0.2-1.3); Calcium 8.4 mg/dl (8.4-10.2); Carbon Dioxide 27 mmol/L (22.0-30.0); Globulin 3.1 g/dL (1.3-3.2); Glucose 107 mg/dl (74-100); Lipase 76 U/L (23-300); Total Protein,Serum 6.1 g/dl (6.3-8.2)
--- NOTE | 2021-01-07 07:53 | PC.NURSE ---
patient taken down to surgery around 729
[2021-01-07 08:19] LABS: Lymphocytes % 9 % (10-50); Monocytes % 3 % (2-9); Neutrophils % 88 % (42-76); Platelet Estimate Normal; RBC Morphology Normal; Total Cells Counted 100
--- NOTE | 2021-01-07 08:22 | HMH.PHAINT ---
SPOKE WITH PATIENT ABOUT ALLERGY TO CEFUROXIME. PATIENT INDICATED SHE THINKS IT UPSET HER STOMACH. ASKED PATIENT IF SHE HAD EVER HAD ANY MEDICATION CAUSE SOB, SWELLING OF MOUTH OR TONGUE, OR CAUSING A RASH. SHE INDICATED SHE HAD NOT HAD THAT. SHE INDICATED SHE COULD TAKE KEFLEX.
--- NOTE | 2021-01-07 08:32 | P.PN_ITS ---
[facility] Anesthesia Checklist - Structural Data Admitted From: Inpatient Planned Operative Procedure/s: marina godoy Consent for Planned Operative Procedure(s) Verified: Yes - Airway Assessment C-Spine Mobility Assessed: Yes TMJ Mobility Assessed: Yes Dentition: Dentures-good fit - Neurological Assessment Level of Consciousness: Awake, Alert, Appropriate - Anesthesia Plan Anesthesia Risk discussed: Yes Anesthesia Plan: Verified ASA Class: II Anesthesia Type: General [facility] History I have reviewed the patient's past medical history: Yes Medical History: Reports:: Hypertension, Migraine, Urinary Tract Infection Denies:: Cancer, Diabetes Mellitus Type 1, Diabetes Mellitus Type 2, MRSA *Have you ever received a pneumonia vaccine?: No *Have you received a flu vaccine this season?: No Other Medical History: Reports: Arthritis (left hip), Hormone Therapy (premarin), Other Anesthesia experience/problems:: none Other Surgeries: Yes: Appendectomy, Colonoscopy, Hysterectomy-Total, Other (cyst removed from left breast) Amputation: No Fractures: No - *Social History Last grade of school completed: High school graduate Smoking Status: Never smoker Alcohol Intake: never Alcohol Intake Frequency:: other Substance Use Type: denies use *Occupational Status:: retired Housing: house Household Members: spouse *Travel in the last 8 weeks: None Family Hx:: Diabetes, Hyperlipidemia, Hypertension 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
--- NOTE | 2021-01-07 09:04 | P.OP_ITS ---
Date of procedure: 01/07/21 Pre-op Diagnosis:: Gallbladder hydrops Post-op Diagnosis:: Gallbladder hydrops with severe acute cholecystitis Procedure performed:: Laparoscopic cholecystectomy (cholangiogram not performed secondary to severe inflammatory changes within the gallbladder fossa) Surgeon:: Lucius Ramirez MD Molded Goods Operator(s):: Roger RECREATION ADVISER:: Carlos Chapa Anesthesia: GETA Estimated blood loss (mL): 15 Operative findings:: Bilious fluid noted throughout the right upper quadrant Gallbladder hydrops with severe acute cholecystitis Severe inflammation in and around gallbladder fossa/infundibulum Cholangiogram not performed secondary to severe inflammation Operative note:: After informed consent was obtained, the patient was taken to the operating room and placed in the supine position. General anesthesia was induced and the abdomen was prepped and draped in a sterile fashion. After infiltration with local anesthetic an infraumbilical incision was made. A Veress needle was placed in position. The abdomen was insufflated. A 5 mm optical trocar was placed in position. Under direct visualization, a 12 mm trocar was placed in the subxiphoid position and 2 additional 5 mm trocars were placed in the right upper quadrant. Inspection revealed bilious fluid throughout the right upper quadrant. The bilious fluid was suctioned. The gallbladder was distended and severe inflammation noted. Severe inflammatory response throughout the entire gallbladder fossa with particular increased inflammation in and around the infundibulum was noted. Secondary to these findings the decision was made to forego attempts at cholangiogram. The gallbladder was carefully elevated up and over the liver margin. The cystic artery was freed from surrounding tissue. A clip was placed proximally and the artery was transected with harmonic maddie. The tissue around the cystic duct was dissected. 2 clips were placed proximally and the duct; however, the clips did not traverse the entire duct. The decision was made to complete the dissection and a dome down approach and to place End oloops at the infundibulum/cystic duct. The dissection was completed with harmonic maddie. After control with Endoloops the infundibulum was transected with harmonic maddie. The gallbladder was placed in a retrieval bag and removed through the subxiphoid trocar site. The right upper quadrant was thoroughly irrigated. No active bleeding or bile leak was noted. Fascia at the subxiphoid trocar site was reapproximated utilizing the NeoClose device. The remaining trocars were removed. All wounds were irrigated and skin was closed with 4-0 Monocryl in a subcuticular fashion. Steri-Strips were applied. The patient's anesthetic agents were reversed and extubation was completed prior to transfer to recovery in stable condition. Condition: stable Disposition: PACU Specimens:: Gallbladder Complications:: No immediate
--- NOTE | 2021-01-07 09:19 | P.PN_ITS ---
[facility] Anesthesia Record Part I Intake, IV Amount: 1,000 Estimated blood loss (mL): 0 Urine output (mL): 0 Blood Pressure: 146/88 SaO2: 94 Pulse Rate: 115 Respiratory Rate: 12 Temperature: 98.1 F Patient is:: Awake, Stable Stable to PACU at:: 09:15
[2021-01-07 09:33] LABS: POC Glucose,Bedside 93 (70-110)
--- NOTE | 2021-01-07 12:28 | HMH.ACPN2 ---
Internal Medicine - PN: Subj *Date: 01/07/21 *Time: 12:28 Interval history: Patient was taken to the OR earlier this morning for cholecystectomy. She is being seen postoperatively after she has returned to her room from postop recovery. Operative findings showed acute cholecystitis with severe inflammatory response in the gallbladder fossa. She tolerated her surgery well. She is sitting up in the bed eating a liquid diet at present. No unusual complaints. She states her preoperative pain has resolved. Exam Vital signs and Labs for Last 24 Hours: Temp Pulse Resp BP Pulse Ox 97.6 F 98 H 18 160/68 H 97 01/07/21 09:50 01/07/21 09:50 01/07/21 09:50 01/07/21 09:50 01/07/21 09:50 Laboratory Results - last 24 hr 01/07/21 06:36: WBC 17.0 H, RBC 3.58 L, Hgb 11.2 L, Hct 34.3 L, MCV 96.0, MCH 31.2, MCHC 32.5, RDW 13.6, Plt Count 208, MPV 9.4, Neut % (Auto) 88.5 H, Lymph % (Auto) 6.5 L, [place] % (Auto) 4.5, Eos % (Auto) 0.4, Baso % (Auto) 0.1, Neut # (Auto) 15.1 H, Lymph # (Auto) 1.1, [place] # (Auto) 0.8, Eos # (Auto) 0.1, Baso # (Auto) 0.0, Total Counted 100, Neutrophils % (Manual) 88 H, Lymphocytes % (Manual) 9 L, Monocytes % (Manual) 3, Platelet Estimate Normal, RBC Morphology Normal 01/07/21 06:36: Sodium 138, Potassium 3.8, Chloride 109 H, Carbon Dioxide 27, Anion Gap 5.8, BUN 9 D, Creatinine 0.60 D, Estimated Creat Clear 59, Estimated GFR 101, Est GFR ( Amer) 122 D, Glucose 107 H, Calcium 8.4, Total Bilirubin 0.5, AST 26 D, ALT 44 D, Alkaline Phosphatase 92, Total Protein 6.1 L, Albumin 3.0 L, Globulin 3.1, Albumin/Globulin Ratio 1.0 L, Lipase 76 01/07/21 09:26: POC Glucose 93 I & O for Last 24 hours: Intake & Output 02/14/21 02/15/21 02/16/21 02/17/21 11:59 11:59 11:59 11:59 Intake Total 0 / 0 3003 / 3003 1240 / 1240 Balance 0 / 0 3003 / 3003 1240 / 1240 Weight 145 lb 145 lb 8.081 oz 150 lb Narrative: Alert and oriented. Color is good. Lungs are clear. Heart is regular. Abdomen is soft and slightly distended. Diffuse upper abdominal tenderness. Bowel sounds diminished Assessment and Plan (1) Acute cholecystitis Status: Acute Category: Medical Code(s): K81.0 - Acute cholecystitis (2) Pancreatitis Status: Acute Qualifiers: Chronicity: acute Pancreatitis type: unspecified pancreatitis type Acute pancreatitis complication: no infection or necrosis Qualified Code(s): K85.90 - Acute pancreatitis without necrosis or infection, unspecified Category: Medical Code(s): K85.90 - Acute pancreatitis without necrosis or infection, unspecified (3) Hydrops of gallbladder Status: Acute Category: Medical Code(s): K82.1 - Hydrops of gallbladder (4) HBP (high blood pressure) Status: Acute Category: Medical Code(s): I10 - Essential (primary) hypertension (5) Dyslipidemia Status: Acute Category: Medical Code(s): E78.5 - Hyperlipidemia, unspecified (6) Chronic migraine Status: Acute Category: Medical Code(s): G43.709 - Chronic migraine without aura, not intractable, without status migrainosus (7) Lumbar disc disease Status: Acute Category: Medical Code(s): M51.9 - Unspecified thoracic, thoracolumbar and lumbosacral intervertebral disc disorder (8) GERD (gastroesophageal reflux disease) Status: Acute Category: Medical Code(s): K21.9 - Gastro-esophageal reflux disease without esophagitis - Assessment and plan all Dx Assessment and Plan for all problems:: She is doing well postoperatively. Continue per orders.
--- NOTE | 2021-01-07 17:51 | PC.NURSE ---
since return from surgery patient has done well. telfa and tegaderm over lap site are c/d/i. patient has had no complaints of pain or nausea. tolerating diets well. she has ambulated to bathroom with no issues. rings out as needed. has been able to come off o2 with no issues. vitals stable.
[2021-01-08] VITALS: BP 150/72; PULSE 72; RESP 16; TEMP 36.7; O2SAT 94
[2021-01-08 04:00] VITALS: BP 135/64; PULSE 70; RESP 20; TEMP 36.4; O2SAT 96
[2021-01-08 05:00] VITALS: BMI 24.1
--- NOTE | 2021-01-08 05:48 | PC.NURSE ---
pt is AxOx4, has rested well t/o shift, has ambulated independently to , lungs CTA, remains on room air, no complaints of SOA or chest pain, N/V, pt has not complained of pain this shift, [address], C/D/I,
--- NOTE | 2021-01-08 07:38 | PC.NURSE ---
Dr. Ramirez in room at this time.
[2021-01-08 07:50] VITALS: BP 148/59; PULSE 89; RESP 16; TEMP 36.6; O2SAT 94
[2021-01-08 07:55] LABS: Basophils % 0.1 % (0.1-2.0); Eosinophils # 0.1 K/mm3 (0.0-0.4); Eosinophils % 0.9 % (0.1-12.0); Lymphocytes # 1.1 K/mm3 (0.7-4.5); Lymphocytes % 8.1 % (10-50); Mean Corpuscular HGB Conc 31.4 g/dL (31.8-35.4); Mean Corpuscular Hemoglobin 30.4 pg (27.0-31.2); Mean Corpuscular Volume 96.8 fl (81-99); Monocytes # 0.5 K/mm3 (0.1-1.0); Monocytes % 3.6 % (1.7-9.3); Neutrophils # 11.9 K/mm3 (1.8-7.8); Neutrophils % 87.2 % (37.0-80.0); Platelet Count 243 K/mm3 (142-424); Red Blood Count 3.61 M/mm3 (4.20-5.40); Red Cell Distribution Width 13.7 % (11.5-17.5); White Blood Count 13.7 K/mm3 (4.8-10.8)
[2021-01-08 07:57] LABS: Chloride 110 mmol/L (98-107); Sodium 141 mmol/L (136-145)
[2021-01-08 07:58] LABS: Potassium 3.3 mmoL/L (3.5-5.1)
[2021-01-08 08:00] VITALS: O2SAT 95
[2021-01-08 08:00] LABS: Alanine Aminotransferase 42 U/L (12-78); Albumin/Globulin Ratio 0.9 (1.1-1.8); Alkaline Phosphatase 96 U/L (38-126); Anion Gap 8.3 mEq/L (5-15); Aspartate Amino Transferase 37 U/L (14-36); Bilirubin,Total 0.3 mg/dl (0.2-1.3); Blood Urea Nitrogen 12 mg/dl (7-17); Carbon Dioxide 26 mmol/L (22.0-30.0); Creatinine Clearance Estimated 59 mL/min (50-200); Estimated Glomerular Filt Rate 84 ml/min (>60); GFR (African American) 102 ML/MIN (>60); Globulin 3.2 g/dL (1.3-3.2); Total Protein,Serum 6.2 g/dl (6.3-8.2)
[2021-01-08 08:01] LABS: Calcium 8.6 mg/dl (8.4-10.2); Glucose 137 mg/dl (74-100)
[2021-01-08 08:04] LABS: MANUAL DIFFERENTIAL MANUAL DIFFERENTIAL (MANUAL DIFF)
--- NOTE | 2021-01-08 08:12 | HMH.ACPN2 ---
<Jeanne Andersen - Last Filed: 01/08/21 08:12> Internal Medicine - PN: Subj *Date: 01/08/21 *Time: 08:12 Interval history: Patient states she is feeling better this morning. She was able to get up and shower today. She is tolerating her diet and has minimal pain in her abdomen. She denies any other pain. She is anxious to go home today. Exam Vital signs and Labs for Last 24 Hours: Temp Pulse Resp BP Pulse Ox 97.8 F 89 16 148/59 H 94 L 01/08/21 07:50 01/08/21 07:50 01/08/21 07:50 01/08/21 07:50 01/08/21 07:50 Laboratory Results - last 24 hr 01/07/21 06:36: Total Counted 100, Neutrophils % (Manual) 88 H, Lymphocytes % (Manual) 9 L, Monocytes % (Manual) 3, Platelet Estimate Normal, RBC Morphology Normal 01/07/21 09:26: POC Glucose 93 01/08/21 07:45: WBC 13.7 H, RBC 3.61 L, Hgb 11.0 L, Hct 35.0 L, MCV 96.8, MCH 30.4, MCHC 31.4 L, RDW 13.7, Plt Count 243, MPV 9.0, Neut % (Auto) 87.2 H, Lymph % (Auto) 8.1 L, [place] % (Auto) 3.6, Eos % (Auto) 0.9, Baso % (Auto) 0.1, Neut # (Auto) 11.9 H, Lymph # (Auto) 1.1, [place] # (Auto) 0.5, Eos # (Auto) 0.1, Baso # (Auto) 0.0 01/08/21 07:45: Sodium 141, Potassium 3.3 L, Chloride 110 H, Carbon Dioxide 26, Anion Gap 8.3, BUN 12 D, Creatinine 0.70, Estimated Creat Clear 59, Estimated GFR 84, Est GFR ( Amer) 102, Glucose 137 H, Calcium 8.6, Total Bilirubin 0.3, AST 37 H D, ALT 42, Alkaline Phosphatase 96, Total Protein 6.2 L, Albumin 3.0 L, Globulin 3.2, Albumin/Globulin Ratio 0.9 L I & O for Last 24 hours: Intake & Output 01/05/21 01/06/21 01/07/21 01/08/21 11:59 11:59 11:59 11:59 Intake Total 0 / 0 3003 / 3003 1240 / 1240 600 / 600 Balance 0 / 0 3003 / 3003 1240 / 1240 600 / 600 Weight 145 lb 145 lb 8.081 oz 150 lb 145 lb - Constitutional no acute distress - *Routine Respiratory Exam Present: CTA bilaterally - *Routine Cardiovascular Exam Present: RRR - *Routine Abdominal Exam Present: soft, normoactive bowel sounds, tenderness (only around surgical sites - they are clean and dry) - *Routine Extremities Exam Absent: cyanosis, clubbing, edema - *Routine Skin Exam Present: warm. Absent: rash - *Routine Neurological Exam Present: alert, oriented X3 Assessment and Plan (1) Acute cholecystitis Status: Acute Category: Medical Code(s): K81.0 - Acute cholecystitis (2) Pancreatitis Status: Acute Qualifiers: Chronicity: acute Pancreatitis type: unspecified pancreatitis type Acute pancreatitis complication: no infection or necrosis Qualified Code(s): K85.90 - Acute pancreatitis without necrosis or infection, unspecified Category: Medical Code(s): K85.90 - Acute pancreatitis without necrosis or infection, unspecified (3) Hydrops of gallbladder Status: Acute Category: Medical Code(s): K82.1 - Hydrops of gallbladder (4) HBP (high blood pressure) Status: Acute Category: Medical Code(s): I10 - Essential (primary) hypertension (5) Dyslipidemia Status: Acute Category: Medical Code(s): E78.5 - Hyperlipidemia, unspecified (6) Chronic migraine Status: Acute Category: Medical Code(s): G43.709 - Chronic migraine without aura, not intractable, without status migrainosus (7) Lumbar disc disease Status: Acute Category: Medical Code(s): M51.9 - Unspecified thoracic, thoracolumbar and lumbosacral intervertebral disc disorder (8) GERD (gastroesophageal reflux disease) Status: Acute Category: Medical Code(s): K21.9 - Gastro-esophageal reflux disease without esophagitis - Assessment and plan all Dx Assessment and Plan for all problems:: Patient's white blood cell count is improving. Her potassium is low, will replace. Surgery to follow. Will discuss further care with Dr. Hernandez. <Avinash Hernandez - Last Filed: 01/08/21 09:23> Internal Medicine - PN: Subj *Date: 01/08/21 *Time: 09:17 Exam Vital signs and Labs for Last 24 Hours: Temp Pulse Resp BP Pulse Ox 97.8 F 89 16 1
--- NOTE | 2021-01-08 08:13 | P.PN_ITS ---
Subjective Patient reports: feels better Progress Note: A&P (1) Acute cholecystitis Status: Acute Assessment and plan: Overall, doing well status post laparoscopic cholecystectomy. Likely discharge home soon with outpatient follow-up Levaquin/Flagyl ordered for short course of postoperative antibiotics (secondary to severity of cholecystitis with associated necrosis) (2) Pancreatitis Status: Acute (3) Hydrops of gallbladder Status: Acute (4) HBP (high blood pressure) Status: Acute (5) Dyslipidemia Status: Acute (6) Chronic migraine Status: Acute (7) Lumbar disc disease Status: Acute (8) GERD (gastroesophageal reflux disease) Status: Acute Exam Vital signs and Labs for Last 24 Hours: Temp Pulse Resp BP Pulse Ox 97.8 F 89 16 148/59 H 94 L 01/08/21 07:50 01/08/21 07:50 01/08/21 07:50 01/08/21 07:50 01/08/21 07:50 Laboratory Results - last 24 hr 01/07/21 06:36: Total Counted 100, Neutrophils % (Manual) 88 H, Lymphocytes % (Manual) 9 L, Monocytes % (Manual) 3, Platelet Estimate Normal, RBC Morphology Normal 01/07/21 09:26: POC Glucose 93 01/08/21 07:45: WBC 13.7 H, RBC 3.61 L, Hgb 11.0 L, Hct 35.0 L, MCV 96.8, MCH 30.4, MCHC 31.4 L, RDW 13.7, Plt Count 243, MPV 9.0, Neut % (Auto) 87.2 H, Lymph % (Auto) 8.1 L, [place] % (Auto) 3.6, Eos % (Auto) 0.9, Baso % (Auto) 0.1, Neut # (Auto) 11.9 H, Lymph # (Auto) 1.1, [place] # (Auto) 0.5, Eos # (Auto) 0.1, Baso # (Auto) 0.0 01/08/21 07:45: Sodium 141, Potassium 3.3 L, Chloride 110 H, Carbon Dioxide 26, Anion Gap 8.3, BUN 12 D, Creatinine 0.70, Estimated Creat Clear 59, Estimated GFR 84, Est GFR ( Amer) 102, Glucose 137 H, Calcium 8.6, Total Bilirubin 0.3, AST 37 H D, ALT 42, Alkaline Phosphatase 96, Total Protein 6.2 L, Albumin 3.0 L, Globulin 3.2, Albumin/Globulin Ratio 0.9 L I & O for Last 24 hours: Intake & Output 01/05/21 01/06/21 01/07/21 01/08/21 11:59 11:59 11:59 11:59 Intake Total 0 / 0 3003 / 3003 1240 / 1240 600 / 600 Balance 0 / 0 3003 / 3003 1240 / 1240 600 / 600 Weight 145 lb 145 lb 8.081 oz 150 lb 145 lb - Constitutional no acute distress - *Routine Respiratory Exam Absent: respiratory distress - *Routine Cardiovascular Exam Present: RRR - *Routine Abdominal Exam Present: soft Comments: Dressings intact. No cellulitis.
[2021-01-08 08:51] LABS: Eosinophils % 1 % (0-3); Lymphocytes % 6 % (10-50); Monocytes % 5 % (2-9); Neutrophils % 88 % (42-76); Platelet Estimate Normal; Total Cells Counted 100
[2021-01-08 08:52] LABS: RBC Morphology Normal
--- NOTE | 2021-01-08 11:05 | PC.NURSE ---
Discharge teaching provided. Questions encouraged and answered. Pt and spouse v/u.
--- NOTE | 2021-01-08 11:27 | PC.NURSE ---
Pt. left unit via wheelchair, accompanied by Nurse.
--- NOTE | 2021-01-08 13:06 | HMH.ANESII ---
[facility] Anesthesia Record Part II Discharge Time: 09:50 Destination: Medical Surgical Department PACU nurse assessment reviewed?: Yes Patient Condition:: Good Anesthesia Complications:: None Swallowing reflex intact?: Yes Cyanosis?: No Blood Pressure: 160/68 Pulse Rate: 98 Temperature: 97.6 F Mental Status: Alert & Oriented Pain level:: 0 Nausea and/or vomitting:: None Intake, IV Amount: 0
[2021-01-08 13:07] VITALS: BP 160/68; PULSE 98; TEMP 36.4
--- NOTE | 2021-01-08 14:15 | HMH.DCSUM ---
General - General Admission date:: 01/05/21 <DavidAvinash Balta - 02/21/21 13:12> 01/05/21 <Jeanne Andersen - 01/08/21 14:21> Discharge date: 01/08/21 <Jeanne Andersen - 01/08/21 14:21> HPI HPI: Ms. 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 Her symptoms started 2 nights ago with some mild right-sided pain. When she woke up yesterday morning she took some Tums and ate breakfast and felt a little better. Throughout the day yesterday her pain progressively worsened. She tried taking more Tums last night with no relief. She finally presented to the emergency room. She denies fever. No change in her bowel habits. Her bowels move normally this morning. On evaluation emergency room, she was found to have an elevated amylase and lipase and CT scan of the abdomen was consistent with pancreatitis with a hydropic gallbladder. She has been admitted for further evaluation and treatment. <Jeanne Andersen - 01/08/21 14:21> Hospital Course Hospital Course: The patient was admitted with acute pancreatitis and kept n.p.o. with IV fluids and pain management as well as antiemetics. Her CT showed a hydropic gallbladder but with no evidence of stones. A gallbladder ultrasound was ordered as was a GI consultation. Gallbladder ultrasound showed pericholecystic fluid and gallbladder wall thickening consistent with cholecystitis. GI saw the patient and felt the gallbladder hydrops to be the underlying concern and recommended surgical consult for cholecystectomy. They also recommended an intraoperative cholangiogram. Dr. Ramirez was consulted and he performed a laparoscopic cholecystectomy on 01/07/2021. He found a severe acute cholecystitis with inflammation in and around the gallbladder fossa. Cholangiogram was not performed secondary to the severe inflammation. She tolerated the surgery well and was stable and able to tolerate a diet. Her pain resolved. By 01/08/2021, she had been up and showered and was tolerating her diet with minimal abdominal pain. She was anxious to go home. Her white blood cell count was improving and her potassium was low and was replaced. She was stable to be discharged home on a short course of antibiotics and will resume her home potassium prescription. She will follow-up with Dr. Ramirez. <Jeanne Andersen - 01/08/21 14:21> Objective Vital signs: Temp Pulse Resp BP Pulse Ox 97.6 F 98 H 16 160/68 H 95 01/08/21 13:07 01/08/21 13:07 01/08/21 07:50 01/08/21 13:07 01/08/21 08:00 <DavidAvinash mena - 02/21/21 13:12> Temp Pulse Resp BP Pulse Ox 97.6 F 98 H 16 160/68 H 95 01/08/21 13:07 01/08/21 13:07 01/08/21 07:50 01/08/21 13:07 01/08/21 08:00 <Jeanne Andersen - 01/08/21 14:21> Narrative: - Constitutional mild distress - *Routine HEENT Exam Head: Present: normocephalic, atraumatic Eye: Present: EOMI, PERRL. Absent: scleral injection ENT: Present: mucous membranes dry - *Routine Neck Exam Present: supple, full ROM. Absent: carotid bruit - *Routine Respiratory Exam Present: CTA bilaterally - *Routine Cardiovascular Exam Present: RRR. Absent: murmur - *Routine Abdominal Exam Present: soft, tenderness (RUQ and epigastrium; BS diminished), distended (mildly) - *Routine Extremities Exam Absent: edema <Jeanne Andersen - 01/08/21 14:21> Results Labs on day of discharge: Labs from last 24 hours 01/08/21 01/08/21 07:45 07:45 WBC 13.7 H RBC 3.61 L Hgb 11.0 L Hct 35.0 L MCV 96.8 MCH 30.4 MCHC 31.4 L RDW 13.7 Plt Count 243 MPV 9.0 Neut % (Auto) 87.2 H Lymph % (Auto) 8.1 L [place] % (Auto) 3.6 Eos % (Auto) 0.9 Baso % (Auto)
== END 2021-01-08 11:27 | disposition home or self-care (01) | DRG 417 ==
LOC: ER 05:09 → 2ND 11:34
PROVIDERS: Surgery; Admitting Provider Family Medicine; Emergency Provider Emergency Medicine; PCP Family Medicine; Visit Provider Family Medicine
PROC: 0FT44ZZ Resection of Gallbladder, Percutaneous Endoscopic Approach (ICD-10-PCS; CPT 47562; principal; 2021-01-07 08:45)
DX: K81.1 Chronic cholecystitis (principal); K85.90 Acute pancreatitis without necrosis or infection, unspecified; K82.1 Hydrops of gallbladder; G43.709 Chronic migraine without aura, not intractable, without status migrainosus; M51.9 Unspecified thoracic, thoracolumbar and lumbosacral intervertebral disc disorder; Z79.899 Other long term (current) drug therapy; Z79.890 Hormone replacement therapy; Z88.1 Allergy status to other antibiotic agents; I10 Essential (primary) hypertension; E87.6 Hypokalemia
CPT/HCPCS: 47562; 36415; 74177; 76705; 80048; 80053; 80061; 80076; 81001; 82150; 82962; 83690; 85007; 85025; 96374; 96375; 99284; J1335; J2405; J2710; Q9967; U0003

== ENCOUNTER → 2021-02-14 09:25 | Outpatient (CLI) | payer BC, SELFPAY ==
[2021-02-14 10:41] LABS: Potassium 3.9 mmoL/L (3.5-5.1)
== END ==
PROVIDERS: Visit Provider Family Medicine
DX: E87.6 Hypokalemia (principal)
CPT/HCPCS: 36415; 84132

== ENCOUNTER → 2021-08-18 12:32 | Outpatient (CLI) | payer BC, SELFPAY | PROVIDERS: PCP Family Medicine; Visit Provider Family Medicine | DX: Z12.31 Encounter for screening mammogram for malignant neoplasm of breast (principal) ==

== ENCOUNTER → 2021-09-24 13:28 | Outpatient (CLI) | payer BC, SELFPAY ==
[2021-09-24 13:30] LABS: Microscopic, Urine URINE MICROSCOPIC (MICROSCOPIC)
[2021-09-24 14:14] LABS: Appearance,Urine CLEAR (Clear); Basophils # 0.1 K/mm3 (0-0.2); Basophils % 1.3 % (0.1-2.0); Bilirubin,Urine Negative (Negative); Blood, Urine Negative (Negative); Color,Urine YELLOW (Yellow); Eosinophils # 0.2 K/mm3 (0.0-0.4); Eosinophils % 3.3 % (0.1-12.0); Glucose,Urine (UA) Negative (Negative); Hematocrit 42.1 % (37.0-47.0); Hemoglobin 13.9 g/dL (12.2-16.2); Ketones,Urine Negative (Negative); Leukocyte Esterase,Urine TRACE (Negative); Lymphocytes # 1.8 K/mm3 (0.7-4.5); Lymphocytes % 29.8 % (10-50); Mean Corpuscular Volume 96.9 fl (81-99); Mean Platelet Volume 8.9 fl (7.4-10.4); Monocytes # 0.4 K/mm3 (0.1-1.0); Neutrophils # 3.6 K/mm3 (1.8-7.8); Neutrophils % 59.6 % (37.0-80.0); Nitrate,Urine Negative (Negative); PH,Urine 5.5 (5.0-8.5); Platelet Count 286 K/mm3 (142-424); Protein,Urine Negative (Negative); Red Blood Count 4.34 M/mm3 (4.20-5.40); Red Cell Distribution Width 12.9 % (11.5-17.5); Urobilinogen,Urine 0.2 EU/dl (0.2)
[2021-09-24 14:57] LABS: Alanine Aminotransferase 31 U/L (12-78); Albumin Level 4.4 g/dl (3.5-5.0); Albumin/Globulin Ratio 1.5 (1.1-1.8); Alkaline Phosphatase 132 U/L (38-126); Amylase 51 U/L (30-110); Anion Gap 12.8 mEq/L (5-15); Aspartate Amino Transferase 36 U/L (14-36); Bacteria,Urine 1+ /lpf; Bilirubin,Total 0.3 mg/dl (0.2-1.3); Blood Urea Nitrogen 15 mg/dl (7-17); Calcium 9.6 mg/dl (8.4-10.2); Carbon Dioxide 27 mmol/L (22.0-30.0); Chloride 106 mmol/L (98-107); Estimated Glomerular Filt Rate 84 ml/min (>60); GFR (African American) 102 ML/MIN (>60); Globulin 2.9 g/dL (1.3-3.2); Glucose 85 mg/dl (74-100); Lipase 38 U/L (23-300); Potassium 3.8 mmoL/L (3.5-5.1); Sodium 142 mmol/L (136-145); Total Protein,Serum 7.3 g/dl (6.3-8.2)
== END ==
PROVIDERS: Visit Provider Surgery
DX: R10.11 Right upper quadrant pain (principal)
CPT/HCPCS: 36415; 80053; 81001; 82150; 83690; 85025; 87086; 87088; 87186

== ENCOUNTER → 2021-10-03 08:37 | Outpatient (CLI) | payer BC, SELFPAY ==
--- NOTE | 2021-10-03 08:38 | CT_ITS ---
PROCEDURE: CT ABDOMEN PELVIS W CON CLINICAL INDICATION: Rt upper quad pain COMPARISON: CT CT ABDOMEN PELVIS W CON from 01/05/2021 TECHNIQUE: IV Contrast: 75ML OPTIRAY 350 Oral Contrast 20ml Gastroview Axial images obtained with sagittal and coronal reformats. All CT scans at the facility use one or more dose reduction, viz: automated exposure control, ma/kV adjustment per patient size (including targeted exams where dose is matched to indication, i.e. head), or iterative reconstruction technique. FINDINGS: Lower thorax: There is mild passive congestion and or atelectasis in both posterior gutters. There is mild generalized cardiomegaly. ABDOMEN: Liver: No masses or biliary dilatation. Gallbladder: Post cholecystectomy Pancreas: No masses or peripancreatic fluid collections. There are no inflammatory changes as was seen on the previous CT exam. Spleen: There is a somewhat ill-defined area of decreased perfusion of the posterior inferior aspect of the spleen possibly representing an area of splenic infarction, it was not seen on the previous study 01/05/2021 Adrenals: unremarkable Kidneys/ureters: The kidneys are normal in size and show symmetrical function. There is a tiny benign-appearing cortical cyst upper pole left kidney. There are no calculi and there is no obstructive uropathy of either kidney. ABDOMEN & PELVIS: Stomach bowel: Nondistended. No obvious mass or thickening. The small bowel appears normal. There is a large amount stool in the cecum and ascending colon with moderate scattered stool and gas in the a transverse and descending colon. The rectum is normal. There is very minimal diverticulosis lower descending colon without diverticulitis. Peritoneum: No abnormal fluid collections. No obvious inflammatory changes. No free air. Lymph nodes: No enlarged lymph nodes apparent. Vasculature: No evidence of abdominal aortic aneurysm. No retroperitoneal hemorrhage evident. Bones: There is minor degenerate disc disease at the L2-3 level. PELVIS: Reproductive: Post hysterectomy Bladder: Nondistended. No obvious stones or masses. Appendix: Post appendectomy IMPRESSION: No acute abdominal or pelvic pathology identified. There is a subtle area of decreased perfusion posterior inferior aspect of the spleen possibly representing splenic infarction. Dictated by: Dr. Gregg Loya MD 10/03/2021 10:02 Dr. Gregg Loya MD in [place] 10/03/2021 10:02
== END ==
PROVIDERS: PCP Family Medicine; Visit Provider Surgery
DX: R10.11 Right upper quadrant pain (principal)
CPT/HCPCS: 74177; Q9967

== ENCOUNTER → 2021-10-14 12:27 | Outpatient (CLI) | payer BC, SELFPAY ==
--- NOTE | 2021-10-14 12:31 | XR_ITS ---
PROCEDURE: XR CERVICAL SPINE W FLEX/EXT CLINICAL INDICATION: neck pain COMPARISON: No exams were available for comparison FINDINGS: No fracture or dislocation. No lytic or blastic change. There is normal mineralization. Degenerative disc disease C5-C6 with small endplate osteophytes. Mild foraminal narrowing on the right at C3-C4 with moderate foraminal narrowing at C5-C6 on the right. The left foraminal have an unremarkable appearance. There is mild cervical curvature convex right. No cervical rib. No lytic or blastic change. Flexion and extension views show no abnormal subluxation in flexion or extension. The IMPRESSION: Degenerative disc disease at C5-C6 with moderate right foraminal narrowing at C5-C6 and mild right foraminal narrowing at C3-C4. No abnormal subluxation in flexion or extension. Dictated by: Uvaldo Lopez MD 10/14/2021 13:53 Uvaldo Lopez MD in [facility] 10/14/2021 13:53
== END ==
PROVIDERS: PCP Family Medicine; Visit Provider Nurse Practitioner Family
DX: M54.2 Cervicalgia (principal)
CPT/HCPCS: 72052

== ENCOUNTER → 2021-10-22 10:37 | Outpatient (CLI) | payer BC, SELFPAY ==
[2021-10-22 12:24] LABS: Blood Urea Nitrogen 21 mg/dl (7-17); Estimated Glomerular Filt Rate 72 ml/min (>60); GFR (African American) 87 ML/MIN (>60)
== END ==
PROVIDERS: Visit Provider Surgery
DX: Z01.812 Encounter for preprocedural laboratory examination (principal)
CPT/HCPCS: 36415; 82565; 84520

== ENCOUNTER → 2021-11-03 08:21 | Outpatient (CLI) | payer BC, SELFPAY ==
--- NOTE | 2021-11-03 08:48 | CT_ITS ---
PROCEDURE: CT ABDOMEN PELVIS W CON CLINICAL INDICATION: splenic infarction COMPARISON: CT CT ABDOMEN PELVIS W CON from 01/05/[address] ABDOMEN PELVIS W CON from 10/03/2021 TECHNIQUE: IV Contrast: 75ML Isovue 370 Oral Contrast 450ml Redicat Axial images obtained with sagittal and coronal reformats. All CT scans at the facility use one or more dose reduction, viz: automated exposure control, ma/kV adjustment per patient size (including targeted exams where dose is matched to indication, i.e. head), or iterative reconstruction technique. FINDINGS: LOWER THORAX: No acute finding ABDOMEN & PELVIS: Prior cholecystectomy. There is a 6 mm hypodensity in the right hepatic lobe inferiorly segment 7 unchanged and may represent a small hepatic cyst. No other liver abnormalities. Prior cholecystectomy. No evidence of biloma. No biliary dilatation. There is a bandlike area of slight decreased attenuation within the mid to lower aspect of the spleen. This is not significantly changed from 10/03/2021 but was not present on 01/05/2021.. The pancreas, adrenal glands, and kidneys have an unremarkable appearance aside from a small exophytic left renal cyst at approximately 12 mm unchanged.. No intestinal obstruction or free air. No evidence of appendicitis.. No acute bony findings. No abdominal wall hernias. IMPRESSION: There is a small bandlike area of decreased attenuation in the mid aspect of the spleen which has developed since 01/05/2021. This is of questionable clinical significance but could be related to sequela from a splenic infarction. This is not significantly changed. Prior cholecystectomy. Dictated by: Uvaldo Lopez MD 11/04/2021 09:55 Uvaldo Lopez MD in [place] 11/04/2021 09:55
[2021-11-03 09:00] LABS: Blood Urea Nitrogen 25 mg/dl (7-17); Estimated Glomerular Filt Rate 63 ml/min (>60); GFR (African American) 76 ML/MIN (>60)
== END ==
PROVIDERS: PCP Family Medicine; Visit Provider Surgery
DX: R10.9 Unspecified abdominal pain (principal)
CPT/HCPCS: 36415; 74177; 82565; 84520; Q9967

== ENCOUNTER → 2021-11-10 08:12 | Outpatient (CLI) | payer BC, SELFPAY ==
--- NOTE | 2021-11-10 08:15 | MM_ITS ---
PROCEDURE INFORMATION: Exam: MG Bilateral Screening 3D Mammography Exam date and time: 11/10/2021 8:15 AM Age: 66 years old Clinical indication: Encounter for screening mammogram for malignant neoplasm of breast TECHNIQUE: Imaging protocol: Bilateral screening tomosynthesis and 2D mammography including computer-aided detection (CAD) when performed. COMPARISON: 1. MG MM DIG SCREENING MAMM BI W/CAD 11/08/2020 8:29 AM 2. MG MM DIG SCREENING MAMM BI W/CAD 11/06/2019 8:34 AM 3. MG SCBI MM Dig screening mamm BI w/CAD 11/01/2018 10:23 AM FINDINGS: MAMMOGRAPHY: Breast composition: There are scattered areas of fibroglandular density. Mass: No suspicious masses. Architectural distortion: No suspicious distortion. Calcifications: No suspicious calcifications. Asymmetric density: None. Skin thickening: None. Axillary adenopathy: None. IMPRESSION: No mammographic evidence of malignancy. Annual screening is recommended unless otherwise clinically indicated. ASSESSMENT: BI-RADS Category 1: Negative
== END ==
PROVIDERS: PCP Family Medicine; Visit Provider Family Medicine
DX: Z12.31 Encounter for screening mammogram for malignant neoplasm of breast (principal)
CPT/HCPCS: 77063; 77067

== ENCOUNTER → 2022-11-11 08:54 | Outpatient (CLI) | payer BC, SELFPAY ==
--- NOTE | 2022-11-11 08:57 | MM_ITS ---
PROCEDURE INFORMATION: Exam: MG Bilateral Screening 3D Mammography Exam date and time: 11/11/2022 8:47 AM Age: 67 years old Clinical indication: Screening examination TECHNIQUE: Imaging protocol: Bilateral Screening tomosynthesis and 2D mammography including computer-aided detection (CAD) when performed. COMPARISON: 1. MG MM DIG SCREENING MAMM BI W/CAD 11/10/2021 8:22 AM 2. MG MM DIG SCREENING MAMM BI W/CAD 11/08/2020 8:29 AM 3. MG MM DIG SCREENING MAMM BI W/CAD 11/06/2019 8:34 AM FINDINGS: MAMMOGRAPHY: Breast composition: There are scattered areas of fibroglandular density. Mass: No suspicious masses. Architectural distortion: No suspicious distortion. Calcifications: No suspicious calcifications. Asymmetric density: None. Skin thickening: None. Axillary adenopathy: None. IMPRESSION: No mammographic evidence of malignancy. Annual screening is recommended unless otherwise clinically indicated. ASSESSMENT: BI-RADS Category 1: Negative
--- NOTE | 2022-11-11 08:57 | XR_ITS ---
FINAL REPORT TECHNIQUE: Bone densitometry calculations of the lumbar spine and left hip were obtained. CLINICAL HISTORY: post menopausal COMPARISON: May 22, 2020 FINDINGS: DEXA BONE DENSITY AXIAL SKELETON Using L1-4, the bone mineral density of the spine is 1.157 g/cm2, corresponding to T-score of 1.0. Previously measured 1.126 g/cm2, corresponding to T-score of 0.7. Using the left hip, the bone mineral density of the femoral neck is 0.861 g/cm2, corresponding to a T-score of 0.1. Previously measured 0.903 g/cm2, corresponding to T-score of 0.5. NOTE: T-score: Standard deviation compared with peak bone mass of young adult mean. *Following the recommendations of the International Society of Bone densitometry, classification of hip BMD is based on the lower of two T-scores; total hip or femoral neck. IMPRESSION: Normal bone mineral density of the lumbar spine and left hip. Reviewed, Interpreted and Dictated by Connor Mckeon III, MD Transcribed by Radha Samuel Authenticated and [facility]
== END ==
PROVIDERS: PCP Family Medicine; Visit Provider Family Medicine
DX: Z12.31 Encounter for screening mammogram for malignant neoplasm of breast (principal); Z78.0 Asymptomatic menopausal state
CPT/HCPCS: 77063; 77067; 77080

== ENCOUNTER → 2023-01-05 09:02 | Outpatient (CLI) | payer BC, SELFPAY ==
[2023-01-05 10:19] LABS: Chloride 112 mmol/L (98-107); Sodium 143 mmol/L (136-145)
[2023-01-05 10:22] LABS: Blood Urea Nitrogen 19 mg/dl (7-17); Calcium 8.5 mg/dl (8.4-10.2); Carbon Dioxide 25 mmol/L (22.0-30.0); Estimated Glomerular Filt Rate 63 ml/min (>60); GFR (African American) 76 ML/MIN (>60); Glucose 100 mg/dl (74-100)
== END ==
PROVIDERS: PCP Family Medicine; Visit Provider Specialist
DX: R51.9 Headache, unspecified (principal)
CPT/HCPCS: 36415; 80048

== ENCOUNTER → 2023-01-08 09:31 | Outpatient (CLI) | payer BC, SELFPAY ==
--- NOTE | 2023-01-08 09:32 | MR_ITS ---
FINAL REPORT TECHNIQUE: Multiplanar and multisequence imaging of the brain was obtained before and after contrast administration. CLINICAL HISTORY: New onset of different type of headache, mod-sever pt stated she has clear floaters in both eyes headaches since jun 2022 FINDINGS: The gyri and sulci are within normal limits for age. There is no mass effect or midline shift. Signal intensity is normal. No hydrocephalus. The cerebellum and brainstem have a normal appearance. There are no areas of restricted diffusion on diffusion weighted images to suggest acute infarct. Soft tissues are without acute abnormality. No pathologic contrast enhancement is identified. IMPRESSION: No acute intracranial abnormality and no pathologic contrast enhancement. Reviewed, Interpreted and Dictated by Jazmyne Chapin MD Transcribed by Courtney Mohr Authenticated and [facility]
== END ==
PROVIDERS: PCP Family Medicine; Visit Provider Specialist
DX: R51.9 Headache, unspecified (principal)
CPT/HCPCS: 70553; A9576

== ENCOUNTER 2023-08-06 07:09 | Day surgery (SDC) | payer BC, MEDICARE, SELFPAY ==
[2023-08-06 07:27] VITALS: BMI 27.3
[2023-08-06 07:30] VITALS: BP 152/84; PULSE 67; RESP 18; TEMP 36.2; O2SAT 95
--- NOTE | 2023-08-06 08:01 | EXP.ANES.CKL ---
[facility] Disclaimer: The information contained in this section may have been updated after the patient was seen, as this information can be updated by other users. Medical History (Updated 08/06/23 @ 07:30 by Tabby Rosas RN) Migraine Urge incontinence of urine Surgical History (Updated 08/06/23 @ 07:30 by Tabby Rosas RN) History of cholecystectomy History of hysterectomy Family History (Updated 08/06/23 @ 07:30 by Tabby Rosas RN) Other Colon cancer Parkinson disease Social History (Updated 08/06/23 @ 07:30 by Tabby Rosas RN) Smoking Status: Never smoker alcohol intake: never counseling provided: none substance use type: denies use current occupational status: retired Travel in the last 8 weeks: None household members: spouse housing: house [facility] Anesthesia Checklist Patient Identification Patient Identification: Arm Band Structural Data Admitted From: Home Planned Operative Procedure/s: colonoscopy Consent for Planned Operative Procedure(s) Verified: Yes Verified Documents: Surgical Consent and History and Physical NPO Status Verified Time NPO: 00:00 Additional verifications Anesthesia Reactions: No Airway Assessment Mallampati Score:: Class I C-Spine Mobility Assessed: Yes TMJ Mobility Assessed: Yes Dentition: Good Dentition (upper dentures) Neurological Assessment Level of Consciousness: Awake and Alert Anesthesia Plan Anesthesia Risk discussed: Yes Anesthesia Plan: Verified ASA Class: II Anesthesia Type: MAC
[2023-08-06 08:14] VITALS: O2SAT 98
--- NOTE | 2023-08-06 08:43 | P.PCN_ITS ---
Procedure: Date: 08/06/23 Patient Date of :: 1955 Procedure Performed:: Total colonoscopy to terminal ileum with polypectomy using biopsy forceps Indications:: Patient is a 68-year-old female. I had previously performed colonoscopy on her in 2017 at which time she had a transverse colon tubular adenoma removed. 5- year follow-up colonoscopy was recommended. Patient states that her sister was apparently recently diagnosed at an outside facility with colon cancer but she elected to not pursue any surgery. When the patient was being prepared for sedation she mentioned that she has had some occasional black stools . Performing Provider:: Connor Garcia MD Referring Provider:: Balta Hernandez Sedation:: MAC sedation Procedure:: Patient history was obtained and appropriate physical examination was performed. Patient's medications and allergies were reviewed. Informed consent was obtained after explaining the benefits, alternatives, and risks of the procedure including, but not limited to, bleeding, perforation, missed lesions, and adverse reaction to anesthesia medications. Patient was transported to endoscopy procedure room. Patient was connected to monitoring devices. Throughout the procedure the patient's blood pressure, pulse, and oxygen saturations were monitored continuously. Patient identification and planned procedure were verified by the staff. Patient was positioned in lateral decubitus position. Digital anorectal exam was performed. Variable stiffness Olympus colonoscope was inserted and advanced under direct visualization to the cecum. Adequacy of the colonic preparation was noted. The colonoscope was advanced a short distance into the terminal ileum. The colonoscope was then slowly withdrawn while carefully examining the color, texture, anatomy, and integrity of the mucosoa circumferentially. Within the rectum retroflexion was performed. Colonoscope was then withdrawn. . Colonic preparation was good. Overall colon appeared relatively unremarkable. However in the distal rectum there was a hyperplastic appearing polyp removed with cold biopsy forceps. She had minimal internal hemorrhoids. . Findings:: Diminutive distal hyperplastic appearing rectal polyp Minimal internal hemorrhoids Recommendations:: Likely repeat colonoscopy 5 years given prior history of adenomatous polyps and family history of colon cancer reportedly. May need upper endoscopy if indicated for apparent history of black stools . Complications:: None Estimated blood obtained (mL): 1 Colonoscopy Component Colonoscopy Component Was a colonoscopy performed during today's procedure?: Yes Recommended follow up colonoscopy of at least 10 years?: No If no, follow up colonoscopy recommended in ___ years?: 5 Reason for not recommending >/= 10 yr follow-up interval?: See above
[2023-08-06 08:44] VITALS: BP 98/57; PULSE 62; RESP 16; TEMP 36.2; O2SAT 96
[2023-08-06 08:54] VITALS: BP 103/53; PULSE 54; RESP 18; O2SAT 97
[2023-08-06 09:04] VITALS: BP 106/60; PULSE 54; RESP 18; O2SAT 98
[2023-08-06 09:14] VITALS: BP 135/62; PULSE 55; RESP 16; O2SAT 99
== END 2023-08-06 09:14 | disposition home or self-care (01) ==
PROVIDERS: PCP Family Medicine; Visit Provider Surgery
PROC: 0DJD8ZZ Inspection of Lower Intestinal Tract, Via Natural or Artificial Opening Endoscopic (ICD-10-PCS; CPT 45380; principal; 2023-08-06 08:30)
DX: Z12.11 Encounter for screening for malignant neoplasm of colon (principal); Z86.010 Personal history of colon polyps; Z80.0 Family history of malignant neoplasm of digestive organs; K64.8 Other hemorrhoids; D12.8 Benign neoplasm of rectum
CPT/HCPCS: 45380; 88305

== ENCOUNTER 2023-11-24 09:51 | Outpatient (CLI) | payer MEDICARE, OTHER, SELFPAY ==
--- NOTE | 2023-11-24 09:59 | MM_ITS ---
PROCEDURE INFORMATION: Exam: MG Bilateral Screening 3D Mammography Exam date and time: 11/24/2023 10:14 AM Age: 68 years old Clinical indication: Screening examination TECHNIQUE: Imaging protocol: Bilateral Screening tomosynthesis and 2D mammography including computer-aided detection (CAD) when performed. COMPARISON: 1. MG MM DIG SCREENING MAMM BI W/CAD 11/11/2022 8:47 AM 2. MG MM DIG SCREENING MAMM BI W/CAD 11/10/2021 8:22 AM FINDINGS: MAMMOGRAPHY: Breast composition: There are scattered areas of fibroglandular density. Mass: None. Architectural distortion: None. Calcifications: No suspicious calcifications. Asymmetric density: None. Skin thickening: None. Axillary adenopathy: None. IMPRESSION: No mammographic evidence of malignancy. Annual screening is recommended unless otherwise clinically indicated. ASSESSMENT: BI-RADS Category 1: Negative
== END 2023-11-24 23:59 ==
LOC: RAD 09:51
PROVIDERS: PCP Family Medicine; Visit Provider Family Medicine
DX: Z12.31 Encounter for screening mammogram for malignant neoplasm of breast (principal)
CPT/HCPCS: 77063; 77067

== ENCOUNTER 2024-12-26 08:40 | Outpatient (CLI) | payer MEDICARE, OTHER, SELFPAY ==
--- NOTE | 2024-12-26 08:46 | US_ITS ---
FINAL REPORT CLINICAL HISTORY: ABNORMAL LIVER FUNCTION COMPARISON: None FINDINGS: Sonographic images of the right upper quadrant were obtained. The pancreas is partially obscured. Fatty infiltration of the liver is present. The gallbladder has been surgically resected. There is no evidence of biliary ductal dilatation.The common duct measures 3 mm. Limited images of the right kidney are unremarkable. IMPRESSION: Prior cholecystectomy without biliary ductal dilatation. Fatty infiltration of the liver. Reviewed, Interpreted and Dictated by Davey Don MD Transcribed by Kayla Coley Authenticated and [facility]
== END 2024-12-26 23:59 | disposition home or self-care (01) ==
LOC: RAD 08:42
PROVIDERS: PCP Family Medicine; Visit Provider Family Medicine
DX: R94.5 Abnormal results of liver function studies (principal)
CPT/HCPCS: 76705

== ENCOUNTER 2025-08-24 07:18 | Outpatient (CLI) | payer MEDICARE, OTHER, SELFPAY ==
--- OUTSIDE RECORDS SUMMARY | 2024-06-01 05:45 | XMS_ITS ---
Author Organization [facility] Address [address] [place] [id number] Care Team Providers Care Consulting Actuary Name Role Phone Hermila Hernandez Primary Care Provider Allergies Allergen (clinical drug ingredient) Drug/Non Drug Allergy documented on EMR Reaction Allergy Type Onset Date Status amoxicillin Amoxicillin diarrhea Drug Allergy Act yoav doxycycline Doxycycline diarrhea Drug Allergy Act oyav atorvastatin Lipitor leg pain and can't walk Drug Allergy Active Results Component Value Reference Range Notes P-Comprehensive Metabolic Pa beverly (CMP) Reviewed date:06/16/2024 01:10:53 PM Interpretation:chlor 109, alk phos 157 Performing Lab: Notes/Report: CLIA: [id number] Zachary Choudhary MD, Traffic Observer [address] [place] [address] , [address], [place] [address] Test performed by [email or web address], [facility] Sodium 144 135-145 mmol/L Potassium 4.3 3.5-5.3 mmol/L Chloride 109 97-108 mmol/L CO2 26 22-32 mmol/L Glucose 95 65-99 mg/dL BUN 21 8-23 mg/dL Creatinine 1.00 0.50-1.00 mg/dL Calcium 9.4 8.6-10.4 mg/dL eGFR by Creatinine 61 >59 mL/min/1.73m2 Protein 6.7 6.0-8.3 g/dL Albumin 4.2 3.5-5.3 g/dL Alkaline Phosphatase 157 35-121 IU/L ALT (SGPT) 43 <5-47 IU/L AST (SGOT) 34 <5-40 IU/L Bilirubin, Total 0.6 <0.2-1.2 mg/dL A/G Ratio 1.7 1.1-2.5 mg/dL P-Lipid Panel Reviewed date:06/16/2024 01:10:54 PM Interpretation:trigs 152, chol/hdl 4.63, non-hdl 156 Performing Lab: Notes/Report: Test performed by [email or web address], [address] , [place] [address] Zachary Choudhary MD, Traffic Observer CLIA: [id number] Cholesterol 199 <200 mg/dL Triglycerides 152 <150 mg/dL HDL Cholesterol 43 >39 mg/dL Cholesterol / HDL Ratio 4.63 0.00-4.44 Ratio Non-HDL Cholesterol 156 <130 mg/dL LDL Cholesterol (Calculation) 126 <130 mg/dL LDL Cholesterol Levels* Less than 100 mg/dL Optimal 100 to 129 mg/dL Near Optimal/ Above Optimal 130 to 159 mg/dL Borderline High 160 to 189 mg/dL High 190 mg/dL and above Very High * Categories as recommended by the 2004 ATPIII guidelines LDL/HDL Ratio 2.9 <3.3 Ratio LDL Cholesterol Patient History Test Date: 06/01/2023 LDL Results: 105 Units: mg/dL % Change: - Test Date: 12/02/2023 LDL Results: 95 Units: mg/dL % Change: -9% Test Date: 06/01/2024 LDL Results: 126 Units: mg/dL % Change: +32% P-Uric Acid Reviewed date:06/16/2024 01:10:54 PM Interpretation:Normal Performing Lab: Notes/Report: Test performed by [facility] [address] , [place] [address] Zachary Choudhary MD, Traffic Observer CLIA: [id number] Uric Acid 6.8 2.4-7.0 mg/dL REASON FOR VISIT 6 month checkup Medications Medication SIG (Take, Route, Frequency, Duration) Notes Start Date End Date Status Topiramate 50 MG 1 tab(s) orally 2 ti mes a day; Duration: 30 day(s) Active Estradiol 1 MG 1 tablet Orally Once a day; Duration: 30 day(s) Not-Taking Slow-Mag 2 TABS AM Active Pantoprazole Sodium 40 MG 1 tab(s) orall y once a day Active oxyBUTYnin Chloride ER 10 MG 1 tablet Orally Once a day Active Sulindac 200 MG 1 tab(s) orally 2 ti mes a day Active Darifenacin Hydrobromide ER 15 MG 1 tab(s) orally once a day Active Aspirin 81 MG 1 tab(s) orally once a day Active Hyzaar 100-12.5 MG 1 tab(s) orally once a day Active tiZANidine HCl 2 MG 1 tab(s) orally Two times a day Not-Taking Problems Problem Type SNOMED Code ICD Code Onset Dates Problem Status W/U Status Risk Notes Problem Podagra (81372078) Podagra (M10.9) Active confirmed Vital Signs Weight 150.6 lbs 06/01/2024 Blood pressure systolic 114 mm Hg 06/01/20 24 Blood pressure diastolic 66 mm Hg 024 Heart Rate 59 /min 06/01/2024 Height 61.50 in 06/01/2024 BMI 27.99 kg/m2 06/01/2024 Encounters Encounter Location Date [place] [address] [facility] [address] [facility] [address] [place] [id number] 06/01/2024 Hermila Hernandez Essential hypertensi on I10 ; Primary generalized (osteo)arthritis M15.0 ; OAB (overactive bladder) N32.81 ; Dyslipidemia E78.5 and Podagra M10.9 Assessments Encounter Date Diagnosis (ICD Code) Assessment Notes Treatment Notes Treatment Clinical Notes Section Notes 06/01/2024 Essential hypertension (ICD-10 - I10) 06/01/2024 Primary generalized (osteo)arthritis (ICD-10 - M15.0) 06/01/2024 OAB (overactive bladder) (ICD-10 - N32.81) 06/01/2024 Dyslipidemia (ICD-10 - E78.5) 06/01/2024 Podagra (ICD-10 - M10.9) If uric acid is normal, consider podiatry referral Plan Of Treatment Medication Medication Name Sig Start Date Stop Date Notes oxyBUTYnin Chloride ER 10 MG 1 tablet Orally Once a day Sulindac 200 MG 1 tab(s) orally 2 ti mes a day Darifenacin Hydrobromide ER 15 MG 1 tab(s) orally once a day Hyzaar 100-12.5 MG 1 tab(s) orally once a day Treatment Notes Assessment Notes Podagra If uric acid is norm al, consider podiatry referral Next Appt Details Follow Up: 6 Months, Reason: Provider Name:Hermila David, 12/06/2025 09:30:00 AM, [address] [facility] [address] [facility], [address], [place], [id number], Progress Notes * BEN YEBOAH:1954 (70 yo F)Acc No.[id number]:06/01/2024 Progress Notes Patient: XIMENA MONDRAGON Provider: Hermila Hernandez M.D. :1955 A ge:68 Y S ex:Female Date:06/01/2024 Address:[facility] [place] [id number] Subjective: * Chief Complaints: * 1 . 6 month checkup. * HPI: C ardiology: She comes in today for scheduled checkup and routine blood work. She monitors her blood pressure at home and reports consistently normal readings. Denies : Chest Pain. D enies : Short of Breath. D enies : Palpitations. D enies : Leg Edema. A nkle/Foot: Her chief complaint today is intermittent pain around her right great toe. It starts around the nail of the toe and radiates to the dorsum of her foot and up to the anterior molina. It often wakes her at night. She denies swelling. No history of trauma. G YN: She follows with Dr. Roblero for [employer] care. He has discontinued her hormone therapy. G astroenterology: GI symptoms are stable with pantoprazole. * ROS: D ERMATOLOGY: no R iesha. n o H briana. G ASTROENTEROLOGY: no V omiting. n o D iarrhea. U ROLOGY: no D ifficulty urinating. n o B lood in urine. * Medical History: H ypertension, Migraine headache, Cervicogenic headaches, GERD, HLP, Seasonal allergies, OAB. * Surgical History: c yst on left breast , TAHBSO with incidental appendectomy 1996, colonoscopy 1997,2002,2012, lap cholecystectomy/ [facility] 12/2020. * Hospitalization/Major Diagno stic Procedure: s ee above , [facility]-acute pancreatitis, acute cholecystitis 01/05/21. * Family History: F ather: 90 yrs, congestive heart failure, CABG. M other: 78 yrs, Parkinsons. 3 brother(s) , 9 sister(s) . 3 daughter(s) . . Sisters and brother with ASCVD. * Social History: C URRENT TOBACCO USE S moking Status: Patient does NOT smoke. C affeine: no, frequency:. Home smoke detector use: yes. Marital Status: . Past smoking status: no, Smoking status: Does not smoke, Former Smoker: No, Second hand smoke exposure: No. Alcohol: No. Sexually active: yes. * Medications: T aking Hyzaar 100-12.5 MG Tablet 1 tab(s) orally once a day , Taking Sulindac 200 MG Tablet 1 tab(s) orally 2 times a day , Taking Darifenacin Hydrobromide ER 15 MG Tablet Extended Release 24 Hour 1 tab(s) orally once a day , Taking oxyBUTYnin Chloride ER 10 MG Tablet Extended Release 24 Hour 1 tablet Orally Once a day , Taking Topiramate 50 MG Tablet 1 tab(s) orally 2 times a day , Taking Pantoprazole Sodium 40 MG Tablet Delayed Release 1 tab(s) orally once a day , Taking Slow-Mag 2 TABS AM , Taking Aspirin 81 MG Tablet Delayed Release 1 tab(s) orally once a day , Not- Taking Estradiol 1 MG Tablet 1 tablet Orally Once a day , Not-Taking tiZANidine HCl 2 MG Tablet 1 tab(s) orally Two times a day , Medication List reviewed and reconciled with the patient * Allergies: L ipitor: leg pain and can't walk, Amoxicillin: diarrhea, Doxycycline: diarrhea. Objective: * Vitals: W t:150.6, Temp:97.8, BP:114/66, HR:59, O2 Sat:98% on RA, Nurse:MELIDA, Ht: 61.50, BMI:27.99. * Examination: G eneral Examination: General Appearance: N AD. N guillaume: s upple, no lymphadenopathy. C hest: S he is tender to palpation over the left anterior chest wall. H eart: R SR. L ungs: c lear to auscultation. E xtremities: n o leg edema. Examination of the right foot shows no joint deformities, swelling, or redness. No bony tenderness. No obvious ingrown toenail or paronychial infections.. Assessment: * Assessment: 1. E ssential hypertension - I10 (Primary) 2 . P rimary generalized (osteo)arthritis - M15.0 3 . O AB (overactive bladder) - N32.81 4 .?Dyslipidemia - E78.5 5 . P odagra - M10.9 Plan: * Treatment: Value Reference Range A /G Ratio 1.7 1.1-2.5 - mg/dL * A lbumin 4.2 3.5-5.3 - g/dL * A lkaline Phosphatase 157 H 35-121 - IU/L * A LT (SGPT) 43 <5-47 - IU/L * A ST (SGOT) 34 <5-40 - IU/L * B ilirubin, Total 0.6 <0.2-1.2 - mg/dL * B UN 21 8-23 - mg/dL * C alcium 9.4 8.6-10.4 - mg/dL * C hloride 109 H 97-108 - mmol/L * C O2 26 22-32 - mmol/L * C reatinine 1.00 0.50-1.00 - mg/dL * G lucose 95 65-99 - mg/dL * P otassium 4.3 3.5-5.3 - mmol/L * S odium 144 135-145 - mmol/L * P rotein 6.7 6.0-8.3 - g/dL * e GFR by Creatinine 61 >59 - mL/min/1.73m2 * Hermila Hernandez 06/16/2024 1 :10:38 PM >See phone encounter 2.?Primary generalized (osteo)arthritis? Refill Sulindac Tablet, 200 MG, 1 tab(s), orally, 2 times a day, 180, Refills 1.??3.?OAB (overactive bladder)? Continue Darifenacin Hydrobromide ER Tablet Extended Release 24 Hour, 15 MG, 1 tab(s), orally, oncea day;?Continue oxyBUTYnin Chloride ER Tablet Extended Release 24 Hour, 10 MG, 1 tablet, Orally, Once a day.??4.?Dyslipidemia?LAB: P-Lipid Panel (Collection Date & Time - 06/01/2024 08:58 AM)?trigs 152, chol/hdl 4.63, non-hdl 156* Value Reference Range C holesterol / HDL Ratio 4.63 H 0.00-4.44 - Ratio * C holesterol 199 <200 - mg/dL * H DL Cholesterol 43 >39 - mg/dL * L DL Cholesterol (Calculation) 126 <130 - mg/d L * L DL/HDL Ratio 2.9 <3.3 - Ratio * N on-HDL Cholesterol 156 H <130 - mg/dL * T riglycerides 152 H <150 - mg/dL * Hermila Hernandez Balta 06/16/2024 1 :10:38 PM >See phone encounter 5.?Podagra?LAB: P-Uric Acid (Collection Date & Time - 06/01/2024 08:58 AM)?Normal* Value Reference Range U florentin Acid 6.8 2.4-7.0 - mg/dL * Hermila Hernandez Balta 06/16/2024 1 :10:38 PM >See phone encounter Notes: If uric acid is normal, consider podiatry referral?? * Procedure Codes: 9 4760 PULSE OX * Follow Up: 6 Months * Images: Billing Information: * Visit Code: 67220 Office Visit, Est Pt., Level 4. * Procedure Codes: 53303 PULSE OX. * Electronic signature of Hermila Hernandez MD on 08/24/2025 at 07:20 AM EDT Sign off status: Pending * Provider: Hermila Hernandez M.D. Date: 0 06/01/2024 Generated for Raissa barber/Alexi/Sumeet on: 07:20 AM EDT History and Physical Notes * HPI (History of Present Illness) Category Sub-Category Detail Notes Category Not es Cardiology Short of Breath Chest Pain Palpitations Leg Edema Examination Category Sub-Category Detail Notes Category Not es General Examination Heart: RSR Lungs: clear to auscultatio n Extremities: no leg edema. Examin ation of the right foot shows no joint deformities, swelling, or redness. No bony tenderness. No obvious ingrown toenail or paronychial infections. General Appearance: NAD Neck: supple, no lymphaden opathy Chest: She is tender to pal pation over the left anterior chest wall
--- OUTSIDE RECORDS SUMMARY | 2024-12-05 06:30 | XMS_ITS ---
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 Name Role Phone Hermila Hernandez Primary Care Provider [phone] Allergies Allergen (clinical drug ingredient) Drug/Non Drug Allergy documented on EMR Reaction Allergy Type Onset Date Status amoxicillin Amoxicillin diarrhea Drug Allergy Act yoav doxycycline Doxycycline diarrhea Drug Allergy Act yoav atorvastatin Lipitor leg pain and can't walk Drug Allergy Active Results Component Value Reference Range Notes CBC Venipuncture (in house) Reviewed date:12/12/2024 08:34:51 AM Interpretation:Normal Performing Lab: Notes/Report: Normal wbc 6.0 3.5 - 10 lymph 22.2 15 - 50 mid 5.5 2 - 15 gran 72.3 35 - 80 rbc 4.39 3.5 - 5.5 hgb 13.7 11.5 - 16.5 hct 40.8 35 - 55 mcv 92.8 75 - 100 mch 31.3 25 - 35 mchc 33.7 31 - 38 platlet 223 100 - 400 P-Comprehensive Metabolic Pa beverly (CMP) Reviewed date:12/12/2024 08:34:51 AM Interpretation:bun 25, alk phos 190, alt 52, ast 45 Performing Lab: Notes/Report: Test performed by [facility] [address] [place] [address] , [address], [place] [address] Zachary Choudhary MD, Mine Utility Operator CLIA: [id number] Sodium 145 135-145 mmol/L Potassium 4.2 3.5-5.3 mmol/L Chloride 107 97-108 mmol/L CO2 27 22-32 mmol/L Glucose 93 65-99 mg/dL BUN 25 8-23 mg/dL Creatinine 0.86 0.50-1.00 mg/dL Calcium 9.8 8.6-10.4 mg/dL eGFR by Creatinine 73 >59 mL/min/1.73m2 Protein 7.1 6.0-8.3 g/dL Albumin 4.4 3.5-5.3 g/dL Alkaline Phosphatase 190 35-121 IU/L ALT (SGPT) 52 <5-47 IU/L AST (SGOT) 45 <5-40 IU/L Bilirubin, Total 0.8 <0.2-1.2 mg/dL A/G Ratio 1.6 1.1-2.5 P-Lipid Panel Reviewed date:12/12/2024 08:34:51 AM Interpretation:chol 238, trigs 185, chol/hdl 5.67, non-hdl 196, ldl 159, ldl/hdl 3.8 Performing Lab: Notes/Report: Test performed by [facility], [address] , [address], [place] [address] Zachary Choudhary MD, Mine Utility Operator CLIA: [id number] Cholesterol 238 <200 mg/dL Triglycerides 185 <150 mg/dL HDL Cholesterol 42 >39 mg/dL Cholesterol / HDL Ratio 5.67 0.00-4.44 Ratio Non-HDL Cholesterol 196 <130 mg/dL LDL Cholesterol (Calculation) 159 <130 mg/dL LDL Cholesterol Levels* Less than 100 mg/dL Optimal 100 to 129 mg/dL Near Optimal/ Above Optimal 130 to 159 mg/dL Borderline High 160 to 189 mg/dL High 190 mg/dL and above Very High * Categories as recommended by the 2004 ATPIII guidelines LDL/HDL Ratio 3.8 <3.3 Ratio LDL Cholesterol Patient History Test Date: 12/02/2023 LDL Results: 95 Units: mg/dL % Change: -9% Test Date: 06/01/2024 LDL Results: 126 Units: mg/dL % Change: +32% Test Date: 12/05/2024 LDL Results: 159 Units: mg/dL % Change: +26% P-Microalbumin/Creatinine, R andom Urine Sample Reviewed date:12/12/2024 08:34:51 AM Interpretation:Normal Performing Lab: Notes/Report: Test performed by [facility] [address] [place] [address] , [address], [place] [address] Zachary Choudhary MD, Mine Utility Operator CLIA: [id number] Albumin/Creatinine Ratio, Urine 7 0-30 ug/m g Microalbumin, Urine, Random 1.4 Creatinine, Urine 197.3 Bone density Reviewed date:12/06/2024 12:23:46 PM Interpretation:declines Performing Lab: Notes/Report: declines Mammogram Reviewed date:12/06/2024 12:23:56 PM Interpretation:declines Performing Lab: Notes/Report: declines REASON FOR VISIT 6 months check and AWV Medications Medication SIG (Take, Route, Frequency, Duration) Notes Start Date End Date Status Aspirin 81 MG 1 tab(s) orally once a day Active Slow-Mag 2 TABS AM Active oxyBUTYnin Chloride ER 10 MG TAKE 1 TABLET BY MOUTH DAILY Active oxyBUTYnin Chloride ER 10 MG 1 tablet Orally Once a day; Duration: 90 days Active Sulindac 200 MG 1 tab(s) orally 2 ti mes a day; Duration: 90 days Active tiZANidine HCl 2 MG 1 tab(s) orally Two times a day Not-Taking Hyzaar 100-12.5 MG 1 tab(s) orally once a day; Duration: 90 days Active Pantoprazole Sodium 40 MG 1 tab(s) orall y once a day Active Topiramate 50 MG 1 tab(s) orally 2 ti mes a day; Duration: 30 day(s) Active Estradiol 1 MG 1 tablet Orally Once a day; Duration: 30 day(s) Not-Taking Vital Signs Weight 149.2 lbs 12/05/2024 Blood pressure systolic 118 mm Hg 12/05/19 25 Blood pressure diastolic 64 mm Hg 025 Heart Rate 75 /min 12/05/2024 Height 61.50 in 12/05/2024 BMI 27.73 kg/m2 12/05/2024 Encounters Encounter Location Date Provider Diagnosis [facility] [facility] [facility] [address] [id number] 12/05/2024 Hermila Hernandez Adult general medica l examination Z00.00 ; OAB (overactive bladder) N32.81 ; Essential hypertension I10 ; Primary generalized (osteo)arthritis M15.0 ; Screening for lipid disorders Z13.220 ; Gastroesophageal reflux disease without esophagitis K21.9 and BMI 27.0-27.9,adult Z68.27 Assessments Encounter Date Diagnosis (ICD Code) Assessment Notes Treatment Notes Treatment Clinical Notes Section Notes 12/05/2024 Adult general medical examination (ICD-10 - Z00.00) Patient instructed to return to office Annually for Annual Wellness Visits to include annual screenings of Pain assessment, Functional Ability assessment, Cognitive Ability assessment, Fall Risk assessment, Depression screening and Bladder control screening. 12/05/2024 OAB (overactive bladder) (ICD-10 - N32.81) 12/05/2024 Essential hypertension (ICD-10 - I10) 12/05/2024 Primary generalized (osteo)arthritis (ICD-10 - M15.0) 12/05/2024 Screening for lipid disorders (ICD-10 - Z13.220) 12/05/2024 Gastroesophageal reflux disease without esophagitis (ICD-10 - K21.9) 12/05/2024 BMI 27.0-27.9,adult (ICD-10 - Z68.27) Plan Of Treatment Medication Medication Name Sig Start Date Stop Date Notes Darifenacin Hydrobromide ER 15 MG 1 tab(s) orally once a day oxyBUTYnin Chloride ER 10 MG TAKE 1 TABL ET BY MOUTH DAILY Sulindac 200 MG 1 tab(s) orally 2 ti mes a day; Duration: 90 days Hyzaar 100-12.5 MG 1 tab(s) orally once a day; Duration: 90 days Treatment Notes Assessment Notes Adult general medical examination Patien t instructed to return to office Annually for Annual Wellness Visits to include annual screenings of Pain assessment, Functional Ability assessment, Cognitive Ability assessment, Fall Risk assessment, Depression screening and Bladder control screening. Next Appt Details Follow Up: 6 Months, Reason: Provider Name:Hermila David, 12/06/2025 09:30:00 AM, [facility] [facility], [address], [place], [place], [id number], Progress Notes * XIMENA YEBOAHDOB:1954 (70 yo F)Acc No.[id number]:12/05/2024 Annual Wellness Visit Patient: Liliana ELIZALDEXIMENA Provider: Hermila Hernandez M.D. :1955 A ge:69 Y S ex:Female Date:12/05/2024 Address:[address] [place], [place] [id number] Subjective: * Chief Complaints: * 1 . 6 months check and AWV. * HPI: H PI: Patient is here today for a scheduled 6 month check up and a Medicare Annual Wellness Visit. Pt is fasting today. Pt sts that she needs refills of Losartan, Sulindac, and Oxybutynin. Pt sts that she received her Shingles vaccine. Pt sts that she has no new concerns or complaints at this time. She declines flu and Prevnar vaccines. Also states she is not having a mammogram this year. * ROS: D ERMATOLOGY: no R iesha. n o H briana. G ASTROENTEROLOGY: no V omiting. n o D iarrhea. O PTHALMOLOGY: Negative for d enies issues with vision. U ROLOGY: no D ifficulty urinating. n o B lood in urine. * Medical History: H ypertension, Migraine headache, Cervicogenic headaches, GERD, HLP, Seasonal allergies, OAB, Declines flu and Prevmar vaccines 11/2024. * Surgical History: c yst on left breast , [facility]BSO with incidental appendectomy 1996, colonoscopy 1997,2002,2012, lap cholecystectomy/ [facility] 12/2020. * Hospitalization/Major Diagno stic Procedure: s ee above , [facility]-acute pancreatitis, acute cholecystitis 01/05/21. * Family History: [...] Sexually active: yes. * Medications: T aking Topiramate 50 MG Tablet 1 tab(s) orally 2 times a day , Taking Pantoprazole Sodium 40 MG Tablet Delayed Release 1 tab(s) orally once a day , Taking Slow-Mag 2 TABS AM , Taking Aspirin 81 MG Tablet Delayed Release 1 tab(s) orally once a day , Taking Darifenacin Hydrobromide ER 15 MG Tablet Extended Release 24 Hour 1 tab(s) orally once a day , Taking Hyzaar 100-12.5 MG Tablet 1 tab(s) orally once a day , Taking Sulindac 200 MG Tablet 1 tab(s) orally 2 times a day , Taking oxyBUTYnin Chloride ER 10 MG Tablet Extended Release 24 Hour 1 tablet Orally Once a day , Not-Taking Estradiol 1 MG Tablet 1 tablet Orally Once a day , Not-Taking tiZANidine HCl 2 MG Tablet 1 tab(s) orally Two times a day , Medication List reviewed and reconciled with the patient * Allergies: L ipitor: leg pain and can't walk, Amoxicillin: diarrhea, Doxycycline: diarrhea. Objective: * Vitals: W t:149.2, Temp:97.7, BP:118/64, HR:75, Nurse:MELIDA, Ht: 61.50, BMI:27.73. * Examination: G eneral Examination: General Appearance: N AD. N guillaume: s upple, no lymphadenopathy. C hest: S he is tender to palpation over the left anterior chest wall. H eart: R SR. L ungs: c lear to auscultation. E xtremities: n o leg edema. * Physical Examination: G ENERAL: Pain Assessment: P ain level: 1, on a scale of 0 to 10 (10 being extreme pain). F unctional Status Assessment: P atient response to how often physical health interferes with daiy activities: Almost never Able to perform ADLs-including meal preparation, grocery shopping, housework, laundry, taking medications, or handling finances. Cognitive Status: Alert and oriented. Ambulation Status: Fully ambulatory. F all Risk Assessment: I ndependant in ambulation, adequate lighting in home. Patient has NOT fallen or had trouble walking within the past 12 months. D epression Screening: D enies depressed mood or anxiety. Describes emotional health as: calm. B ladder Control Screening: s selina ugalde. Assessment: * Assessment: 1. A dult general medical examination - Z00.00 (Primary) 2 . O AB (overactive bladder) - N32.81 3 . E ssential hypertension - I10 4 . P rimary generalized (osteo)arthritis - M15.0 5 . S creening for lipid disorders - Z13.220 6 . G astroesophageal reflux disease without esophagitis - K21.9 ? 7 . B MO 27.0-27.9,adult - Z68.27 Plan: * Treatment: Value Reference Range w bc 6.0 3.5 - 10 * l ymph 22.2 15 - 50 * m id 5.5 2 - 15 * g ran 72.3 35 - 80 * r bc 4.39 3.5 - 5.5 * h gb 13.7 11.5 - 16.5 * h ct 40.8 35 - 55 * m cv 92.8 75 - 100 * m ch 31.3 25 - 35 * m chc 33.7 31 - 38 * p latlet 223 100 - 400 * Elaine Villalobos 12/05/2024 11:5 3:02 AM > Hermila Hernandez 12/12/2024 8:34:40 AM >See phone encounter Notes:Patient instructed to return to office Annually for Annual Wellness Visits to include annual screenings of Pain assessment, Functional Ability assessment, Cognitive Ability assessment, Fall Risk assessment, Depression screening and Bladder control screening.??2.?OAB (overactive bladder)? Stop Darifenacin Hydrobromide ER Tablet Extended Release 24 Hour, 15 MG, 1 tab(s), orally, once a day, 90;?Continue oxyBUTYnin Chloride ER Tablet Extended Release 24 Hour, 10 MG, TAKE 1 TABLET BY MOUTH DAILY.??3.?Essential hypertension ? Refill Hyzaar Tablet, 100-12.5 MG, 1 tab(s), orally, once a day, 90 days, 90 Tablet, Refills 1. ?LAB: P-Comprehensive Metabolic Panel (CMP) (Collection Date & Time - 12/05/2024 10:01 AM)?bun 25, alk phos 190, alt 52, ast 45* Value Reference Range A /G Ratio 1.6 1.1-2.5 - * A lbumin 4.4 3.5-5.3 - g/dL * A lkaline Phosphatase 190 H 35-121 - IU/L * A LT (SGPT) 52 H <5-47 - IU/L * A ST (SGOT) 45 H <5-40 - IU/L * B ilirubin, Total 0.8 <0.2-1.2 - mg/dL * B UN 25 H 8-23 - mg/dL * C alcium 9.8 8.6-10.4 - mg/dL * C hloride 107 97-108 - mmol/L * C O2 27 22-32 - mmol/L * C reatinine 0.86 0.50-1.00 - mg/dL * G lucose 93 65-99 - mg/dL * P otassium 4.2 3.5-5.3 - mmol/L * S odium 145 135-145 - mmol/L * P rotein 7.1 6.0-8.3 - g/dL * e GFR by Creatinine 73 >59 - mL/min/1.73m2 * Hermila Hernandez 12/12/2024 8 :34:40 AM >See phone encounter ?LAB: P-Microalbumin/Creatinine, Random Urine Sample (Collection Date & Time - 12/05/2024 10:01 AM)?Normal* Value Reference Range A lbumin/Creatinine Ratio, Urine 7 0-30 - ug /mg * C reatinine, Urine 197.3 - mg/dL * M icroalbumin, Urine, Random 1.4 - mg/dL * Hermila Hernandez 12/12/2024 8 :34:40 AM >See phone encounter 4.?Primary generalized (osteo)arthritis? Refill Sulindac Tablet, 200 MG, 1 tab(s), orally, 2 times a day, 90 days, 180 Tablet, Refills 1. ?5.?Screening for lipid disorders?LAB: P-Lipid Panel (Collection Date & Time - 12/05/2024 10:01 AM)?chol 238, trigs 185, chol/hdl 5.67, non-hdl 196, ldl 159, ldl/hdl 3.8* Value Reference Range C holesterol / HDL Ratio 5.67 H 0.00-4.44 - Ratio * C holesterol 238 H <200 - mg/dL * H DL Cholesterol 42 >39 - mg/dL * L DL Cholesterol (Calculation) 159 H <130 - mg/d L * L DL/HDL Ratio 3.8 H <3.3 - Ratio * N on-HDL Cholesterol 196 H <130 - mg/dL * T riglycerides 185 H <150 - mg/dL * Hermila Hernandez 12/12/2024 8 :34:40 AM >See phone encounter * Imaging: * I maging: Bone density (Performed Date - 12/06/2024) d eclines I maging: Mammogram (Performed Date - 12/06/2024) d eclines * Procedure Codes: G 0438 ANNUAL WELLNES VST; PERSNL PPS INIT, G0444 ANNUAL DEPRESSION SCREENING 15 MIN, 1090F PRES/ABSN URINE INCON ASSESS, 3288F FALL RISK ASSESSMENT DOCD, 1170F FXNL STATUS ASSESSED, 1126F AMNT PAIN NOTED NONE PRSNT, 1159F MED LIST DOCD IN RCRD, 1003F LEVEL OF ACTIVITY ASSESS, 1036F TOBACCO NON-USER, 3017F COLORECTAL CA SCREEN DOC REV, [id number] CBC WITH AUTO DIFF, G8510 NEG SCR Depression PT NOT ELIG F/U/PLN DOC, 3074F SYST BP LT 130 MM HG, 3078F DIAST BP < 80 MM HG * Preventive Medicine: Counseling: E motional health: D iscussed ways to improve socialization. B ladder control: D iscussed ways to control/manage leakage of urine. E xercise: A dvised to start, increase or maintain level of exercise/physical activity. I njury prevention: D iscussed fall prevention. Discussed need for cane/walker. Potential trip hazards discussed. Immunizations: P neumococcal r ecommended. I nfluenza r ecommended seasonally. Screening / Special Tests: M ammogram R ecent history: 11/24/2023, negative, recommended today. C olonoscopy R ecent history: 08/03/2023, negative. B one mineral Density?Recent history: 11/11/2022, normal, recommended. * Follow Up: 6 Months * Images: Billing Information: * Visit Code: 34373 Office Visit, Est Pt., Level 3. Modifiers: 25 * Procedure Codes: G0438 ANNUAL WELLNES VST; PERSNL PPS INIT. G0444 ANNUAL DEPRESSION SCREENING 15 MIN. 1090F PRES/ABSN URINE INCON ASSESS. 3288F FALL RISK ASSESSMENT DOCD. 1170F FXNL STATUS ASSESSED. 1126F AMNT PAIN NOTED NONE PRSNT. 1159F MED LIST DOCD IN RCRD. 1003F LEVEL OF ACTIVITY ASSESS. 1036F TOBACCO NON-USER. 3017F COLORECTAL CA SCREEN DOC REV. [id number] CBC WITH AUTO DIFF. G8510 NEG SCR Depression PT NOT ELIG F/U/PLN DOC. 3074F SYST BP LT 130 MM HG. 3078F DIAST BP < 80 MM HG. * Electronic signature of Hermila Hernandez MD on 08/24/2025 at 07:21 AM EDT Sign off status: Pending * Provider: Hermila Hernandez M.D. Date: 0 12/05/2024 Generated for Printi ng/Monikg/eTransmitting on: 1 07:21 AM EDT History and Physical Notes * HPI (History of Present Illness) Category Sub-Category Detail Notes Category Not es HPI Patient is here toda y for a scheduled 6 month check up and a Medicare Annual Wellness Visit. Pt is fasting today. Pt sts that she needs refills of Losartan, Sulindac, and Oxybutynin. Pt sts that she received her Shingles vaccine. Pt sts that she has no new concerns or complaints at this time She declines flu and Prevnar vaccines. Also states she is not having a mammogram this year. Physical Examination Category Sub-Category Detail Notes Section Note s GENERAL Pain Assessment: Pain level: 1, on a scale of 0 to 10 (10 being extreme pain) Functional Status Assessment: Patient response to how often physical health interferes with daiy activities: Almost never Able to perform ADLs-including meal preparation, grocery shopping, housework, laundry, taking medications, or handling finances. Cognitive Status: Alert and oriented. Ambulation Status: Fully ambulatory Fall Risk Assessment: Independant in amb ulation, adequate lighting in home. Patient has NOT fallen or had trouble walking within the past 12 months Depression Screening: Denies depressed m ood or anxiety. Describes emotional health as: calm Bladder Control Screening: small problem s Examination Category Sub-Category Detail Notes Category Not es General Examination Heart: RSR Lungs: clear to auscultatio n Extremities: no leg edema General Appearance: NAD Neck: supple, no lymphaden opathy Chest: She is tender to pal pation over the left anterior chest wall
--- OUTSIDE RECORDS SUMMARY | 2025-06-05 05:00 | XMS_ITS ---
Author Organization [facility] Address [address] [place], [place] [id number] Care Team Providers Care Real Estate Accountant Name Role Phone Hermila Hernandez Primary Care Provider [phone] Allergies Allergen (clinical drug ingredient) Drug/Non Drug Allergy documented on EMR Reaction Allergy Type Onset Date Status amoxicillin Amoxicillin diarrhea Drug Allergy Act yoav doxycycline Doxycycline diarrhea Drug Allergy Act yoav atorvastatin Lipitor leg pain and can't walk Drug Allergy Active Results Component Value Reference Range Notes P-Comprehensive Metabolic Pa beverly (CMP) Reviewed date:06/06/2025 11:13:37 PM Interpretation:alk phos 192 Performing Lab: Notes/Report: Test performed by [facility] [address] [place] [address] , [address], [place] [address] Zachary Choudhary MD, Superintendent Pier CLIA: [id number] Sodium 144 135-145 mmol/L Potassium 3.7 3.5-5.3 mmol/L Chloride 106 97-108 mmol/L CO2 25 20-32 mmol/L Glucose 96 65-99 mg/dL BUN 20 8-23 mg/dL Creatinine 0.95 0.50-1.00 mg/dL Calcium 9.4 8.6-10.4 mg/dL eGFR by Creatinine 65 >59 mL/min/1.73m2 Protein 7.0 6.0-8.3 g/dL Albumin 4.3 3.5-5.3 g/dL Alkaline Phosphatase 192 35-121 IU/L ALT (SGPT) 41 <5-47 IU/L AST (SGOT) 35 <5-40 IU/L Bilirubin, Total 0.5 <0.2-1.2 mg/dL A/G Ratio 1.6 1.1-2.5 P-Lipid Panel Reviewed date:06/06/2025 11:13:37 PM Interpretation:chol 227, trigs 175, chol/hdl 5.67, non-hdl 187, ldl 152 Performing Lab: Notes/Report: Test performed by [facility], [address] , [place] [address] Zachary Choudhary MD, Superintendent Pier CLIA: [id number] Cholesterol 227 <200 mg/dL Triglycerides 175 <150 mg/dL HDL Cholesterol 40 >39 mg/dL Cholesterol / HDL Ratio 5.67 0.00-4.44 Ratio Non-HDL Cholesterol 187 <130 mg/dL LDL Cholesterol (Calculation) 152 <130 mg/dL LDL Cholesterol Levels* Less than 100 mg/dL Optimal 100 to 129 mg/dL Near Optimal/ Above Optimal 130 to 159 mg/dL Borderline High 160 to 189 mg/dL High 190 mg/dL and above Very High * Categories as recommended by the 2004 ATPIII guidelines LDL/HDL Ratio 3.8 <3.3 Ratio LDL Cholesterol Patient History Test Date: 06/01/2024 LDL Results: 126 Units: mg/dL % Change: +32% Test Date: 12/05/2024 LDL Results: 159 Units: mg/dL % Change: +26% Test Date: 06/05/2025 LDL Results: 152 Units: mg/dL % Change: -4% REASON FOR VISIT 6 months, Needs labs, mammogram, bone density screening, & Prevnar vaccine Medications Medication SIG (Take, Route, Frequency, Duration) Notes Start Date End Date Status Probiotic - as directed Orally Active ZyrTEC Allergy 10 MG 1 tablet Orally Onc e a day Active Fluticasone Propionate 50 MCG/ACT 2 spray in each nostril Nasally Once a day Active Topiramate 50 MG 2.5 tabs orally at bedtime; Duration: 30 days Active Slow-Mag 2 TABS AM Active tiZANidine HCl 2 MG 1 tab(s) orally Two times a day Not-Taking Hyzaar 100-12.5 MG 1 tab(s) orally once a day; Duration: 90 days Active Sulindac 200 MG 1 tab(s) orally 2 ti mes a day; Duration: 90 days Active oxyBUTYnin Chloride ER 10 MG 1 tablet Orally daily Active Estradiol 1 MG 1 tablet Orally Once a day; Duration: 30 day(s) Not-Taking Aspirin 81 MG 1 tab(s) orally once a day Active oxyBUTYnin Chloride ER 10 MG 1 tablet Orally Once a day; Duration: 90 days Active Esomeprazole Magnesium 40 MG 1 capsule 1/2 to 1 hour before morning meal Orally Once a day Active Vital Signs Weight 150.8 lbs 06/05/2025 Blood pressure systolic 112 mm Hg 06/05/20 25 Blood pressure diastolic 72 mm Hg 025 Heart Rate 60 /min 06/05/2025 Height 61.50 in 06/05/2025 BMI 28.03 kg/m2 06/05/2025 Encounters Encounter Location Date Provider Diagnosis [facility] [address] [facility] [address] [facility] [address] [place] [id number] 06/05/2025 Hermila Hernandez OAB (overactive blad fish) N32.81 ; Essential hypertension I10 ; Primary generalized (osteo)arthritis M15.0 ; Screening for lipid disorders Z13.220 ; Gastroesophageal reflux disease without esophagitis K21.9 ; Dyslipidemia E78.5 and BMI 28.0-28.9,adult Z68.28 Assessments Encounter Date Diagnosis (ICD Code) Assessment Notes Treatment Notes Treatment Clinical Notes Section Notes 06/05/2025 OAB (overactive bladder) (ICD-10 - N32.81) 06/05/2025 Essential hypertension (ICD-10 - I10) 06/05/2025 Primary generalized (osteo)arthritis (ICD-10 - M15.0) 06/05/2025 Screening for lipid disorders (ICD-10 - Z13.220) 06/05/2025 Gastroesophageal reflux disease without esophagitis (ICD-10 - K21.9) 06/05/2025 Dyslipidemia (ICD-10 - E78.5) 06/05/2025 BMI 28.0-28.9,adult (ICD-10 - Z68.28) Plan Of Treatment Medication Medication Name Sig Start Date Stop Date Notes Hyzaar 100-12.5 MG 1 tab(s) orally once a day; Duration: 90 days Sulindac 200 MG 1 tab(s) orally 2 ti mes a day; Duration: 90 days oxyBUTYnin Chloride ER 10 MG 1 tablet Orally daily Next Appt Details Follow Up: 6 Months, Reason: Provider Name:Hermila David, 12/06/2025 09:30:00 AM, [address] [facility] [address] [facility], [address], [place], [id number], Progress Notes * XIMENA YEBOAHDOB:1954 (70 yo F)Acc No.[id number]:06/05/2025 Progress Notes Patient: Liliana ELIZALDE XIMENA Provider: Hermila Hernandez M.D. :1955 A ge:69 Y S ex:Female Date:06/05/2025 Address:[place], [id number] Subjective: * Chief Complaints: * 1 . 6 months. 2. Needs labs, mammogram, bone density screening, & Prevnar vaccine. * HPI: C ardiology: The patient is here for a check-up on Hypertension. Pt states she is doing well and denies any new concerns. Pt is fasting. Pt is needing [facility] for [facility] [place] [facility] [place]. Denies : Chest Pain. D enies : Short of Breath. D enies : Dizziness. D enies : Palpitations. * ROS: D ERMATOLOGY: no R iesha. n o H briaan. G ASTROENTEROLOGY: no N ausea. n o V omiting. n o D iarrhea.? U ROLOGY: no D ifficulty urinating. n o B lood in urine. * Medical History: H ypertension, Migraine headache, Cervicogenic headaches, GERD, HLP, Seasonal allergies, OAB, Declines flu and Prevmar vaccines 11/2024, Declines health maintenance 05/2025. * Surgical History: c yst on left breast , TAHBSO with incidental appendectomy 1996, colonoscopy 1997,2002,2012, lap cholecystectomy/ [facility] 12/2020. * Hospitalization/Major Diagno stic Procedure: s ee above , H-acute pancreatitis, acute cholecystitis 01/05/21. * Family History: [...] Sexually active: yes. * Medications: T aking Probiotic - Tablet as directed Orally , Taking ZyrTEC Allergy 10 MG Tablet 1 tablet Orally Once a day , Taking Fluticasone Propionate 50 MCG/ACT Suspension 2 spray in each nostril Nasally Once a day , Taking Topiramate 50 MG Tablet 2.5 tabs orally at bedtime , Taking Slow-Mag 2 TABS AM , [...] tablet Orally Once a day , Taking Esomeprazole Magnesium 40 MG Capsule Delayed Release 1 capsule 1/2 to 1 hour before morning meal Orally Once a day , Not-Taking Estradiol 1 MG Tablet 1 tablet Orally Once a day , Not-Taking tiZANidine HCl 2 MG Tablet 1 tab(s) orally Two times a day , Discontinued Pantoprazole Sodium 40 MG Tablet Delayed Release 1 tab(s) orally once a day , Medication List reviewed and reconciled with the patient * Allergies: L ipitor: leg pain and can't walk, Amoxicillin: diarrhea, Doxycycline: diarrhea. Objective: * Vitals: W t: 150.8, Temp: 98.0, BP: 112/72, HR: 60, Nurse: MARCOS, Ht: 61.50, BMI:28.03. * Examination: G eneral Examination: General Appearance: N AD. N guillaume: s upple, no lymphadenopathy. C hest: S he is tender to palpation over the left anterior chest wall. H eart: R SR. L ungs: c lear to auscultation. E xtremities: n o leg edema. Assessment: * Assessment: 1. E ssential hypertension - I10 (Primary) 2 . O AB (overactive bladder) - N32.81 3 . P rimary generalized (osteo)arthritis - M15.0 4 .?Screening for lipid disorders - Z13.220 5 . G astroesophageal reflux disease without esophagitis - K21.9 6 . D yslipidemia - E78.5 7 . B ND 28.0-28.9,adult - Z68.28 Plan: * Treatment: Value Reference Range A /G Ratio 1.6 1.1-2.5 - * A lbumin 4.3 3.5-5.3 - g/dL * A lkaline Phosphatase 192 H 35-121 - IU/L * A LT (SGPT) 41 <5-47 - IU/L * A ST (SGOT) 35 <5-40 - IU/L * B ilirubin, Total 0.5 <0.2-1.2 - mg/dL * B UN 20 8-23 - mg/dL * C alcium 9.4 8.6-10.4 - mg/dL * C hloride 106 97-108 - mmol/L * C O2 25 20-32 - mmol/L * C reatinine 0.95 0.50-1.00 - mg/dL * G lucose 96 65-99 - mg/dL * P otassium 3.7 3.5-5.3 - mmol/L * S odium 144 135-145 - mmol/L * P rotein 7.0 6.0-8.3 - g/dL * e GFR by Creatinine 65 >59 - mL/min/1.73m2 * Hermila Hernandez 06/06/2025 11:13:23 PM EDT > See phone encounter 2.?OAB (overactive bladder)? Refill oxyBUTYnin Chloride ER Tablet Extended Release 24 Hour, 10 MG, 1 tablet, Orally, daily, 90, Refills 1.??3.?Primary generalized (osteo)arthritis? Refill Sulindac Tablet, 200 MG, 1 tab(s), orally, 2 times a day, 90 days, 180 Tablet, Refills 1. ?4.?Screening for lipid disorders?LAB: P-Lipid Panel (Collection Date & Time - 06/05/2025 08:13 AM)?chol 227, trigs 175, chol/hdl 5.67, non-hdl 187, ldl 152* Value Reference Range C holesterol / HDL Ratio 5.67 H 0.00-4.44 - Ratio * C holesterol 227 H <200 - mg/dL * H DL Cholesterol 40 >39 - mg/dL * L DL Cholesterol (Calculation) 152 H <130 - mg/d L * L DL/HDL Ratio 3.8 H <3.3 - Ratio * N on-HDL Cholesterol 187 H <130 - mg/dL * T riglycerides 175 H <150 - mg/dL * Hermila Hernandez 06/06/2025 11:13:23 PM EDT > See phone encounter * Procedure Codes: G 2211 Complex e/m visit add on, 1036F TOBACCO NON-USER, G8420 BMI<30 AND >=22 CALC & DOCU, G8950 PREHTN/HTN BP DOC INDCD F/U DOC, G8752 MOST RECENT SYSTOLIC BP < 140MM HG, G8754 MOST RECENT DIASTOLIC BP < 90MM HG * Follow Up: 6 Months * Images: Billing Information: * Visit Code: 54826 Office Visit, Est Pt., Level 4. * Procedure Codes: G2211 Complex e/m visit add on. 1036F TOBACCO NON-USER. G8420 BMI<30 AND >=22 CALC & DOCU. G8950 PREHTN/HTN BP DOC INDCD F/U DOC. G8752 MOST RECENT SYSTOLIC BP < 140MM HG. G8754 MOST RECENT DIASTOLIC BP < 90MM HG. * Electronic signature of Hermila Hernandez MD on 08/24/2025 at 07:21 AM EDT Sign off status: Pending * Provider: Hermila Hernandez M.D. Date: 0 06/05/2025 Generated for Raissa barber/Alexi/Sumeet on: 1 07:21 AM EDT History and Physical Notes * HPI (History of Present Illness) Category Sub-Category Detail Notes Category Not es Cardiology Short of Breath Chest Pain Palpitations Dizziness Examination Category Sub-Category Detail Notes Category Not es General Examination Heart: RSR Lungs: clear to auscultatio n Extremities: no leg edema General Appearance: NAD Neck: supple, no lymphaden opathy Chest: She is tender to pal pation over the left anterior chest wall
--- OUTSIDE RECORDS SUMMARY | 2025-08-24 07:20 | XMS_ITS | Data Portability ---
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 Plan of Treatment Reminders Order Date Submit Date Provider Last Modified By Organization Details Last Modified Time Details Appointments OV EST 15 2024 10:30A M Angelina Bush MD Not available Not available Not available OV EST 15 2024 10:45A M LAURI STEPHENS Not available Not available Not available OV EST 15 2025 09:45A M Tiff Cunningham NP Not available Not available Not available Lab None recorded. Referral None recorded. Procedures upper endoscopy procedure (EGD) (PROC) 2024 025 [facility] (Central Scheduling), [address] [place] [address] [place], [id number], 07/04/2025 08:04:55 upper endoscopy procedure (EGD) (PROC) 2024 025 [facility] (Central Scheduling), [address] [place] [address] [place], [id number], 07/04/2025 08:04:54 Surgeries None recorded. Imaging None recorded. Medication Orders esomepraz ole magnesium 40 mg capsule,d elayed release 2024 025 [facility] #[id number], [address], [id number], 07/25/2025 13:36:21 famotidin e 40 mg tablet 2024 025 [facility] #[id number], [address] [address] [address], JULIEN Horta, [id number], 07/25/2025 13:35:36 Nexium 40 mg capsule,d elayed release 2024 025 [facility] #[id number], [address], [place] H[place], [id number], 07/25/2025 13:07:05 pantopraz ole 40 mg tablet,de layed release 2024 025 [facility] #27478, [address] [facility] [address], [place], [id number], 07/25/2025 13:07:10 famotidin e 40 mg tablet [id number] [place] [address] [facility] Store #[id number], [address] [facility] [address], JULIEN Horta, [id number], 07/25/2025 13:35:26 Patient TargetsNo targets recorded. Patient InstructionsNo instructions recorded. Reason for Referral None Reported. Results Created Date Observation Date Name Description Value Unit Range Abnormal Flag Note LastModifiedBy Organization Detail LastModifiedTime 08/08/20 25 08/08/2025 audio gram No observ ation record ed. [email or web address] Not Available 2024 13:23:59 Result Notes None recorded. Problems Name Problem SNOMED Code Status Onset Date Resolution Date Notes Provider Name and Address Organization Details Recorded Time Hypertensi ve disorder 29310234 Active 2022 JULIEN Leach - [place] & [place] 3 09:32:22 Arthritis 6935355 Active 2022 JULIEN Leach - [place] & [place] 3 09:32:27 Gastroesop hageal reflux disease 376235330 Active 2022 JULIEN Leach - [place] & [place] 3 09:32:34 Constipati on 34584839 Active 2022 Tiff Cunningham NP [address] [facility], [address], [place], [address] , [place] - [facility] - [place] & [place] 3 09:39:34 Gastro-eso phageal reflux disease with esophagiti s 110451002 Active 2022 Tiff Cunningham NP [address] [facility], [address], [place], [address] , [place] - [facility] - [place] & [place] 3 09:39:39 Sensorineu ral hearing loss 72661985 Active 2022 KEARA WOODY, AUD [address] [facility], [place], [address] , [place] - [facility] - [place] & [place] 3 10:15:23 Abdominal pain 87187906 Active 2023 Tiff Cunningham NP [address] [facility], [address], [place], [address] , [place] - [facility] - [place] & [place] 4 09:51:42 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, [address], [place], [address] , [place] - [facility] - [place] & [place] 5 10:10:58 Problem Notes None recorded. Procedures Surgical History Date Name Laterality Status Provider Name and Address Organization Details Recorded Time 12/23/19 21 Cholecystectomy completed Radha VICTORIA - [facility] & [place] 01/27/2023 09:34:15 11/22/19 16 EGD/Endoscopy completed Radha Mujica [facility] & [place] 01/27/2023 09:34:04 11/22/19 12 Colonoscopy completed Radha Mujica [facility] & [place] 01/27/2023 09:33:28 11/22/18 98 Hysterectomy completed Radha Mujica [facility] & [place] 01/27/2023 09:33:40 Colonoscopy completed Tiff Cunningham NP [address] [facility], [address], [place], [address], [place] - [facility] & [place] 01/26/2024 09:55:45 Imaging Results None recorded. Procedure Notes None recorded. Medical Equipment None Reported. Allergies No known drug allergies Medications Name Sig Start Date Stop Date Status Note LastModified by Organization Details LastModified Time prednisone 10 mg tablet TAKE 6 TABLETS BY MOUTH FOR 3 DAYS, THEN 5 FOR 3 DAYS, THEN 4 FOR 3 DAYS, THEN 3 FOR 3 DAYS, THEN 2 FOR 3 DAYS, THEN 1 FOR 3 DAYS, THEN ONE-HALF FOR 3 DAYS DIRECTED 01/27 completed Not Available Not Available Not Available doxycycline hyclate 100 mg capsule TAKE 1 CAPSULE BY MOUTH TWICE DAILY FOR 10 DAYS 03/07 completed Not Available Not Available Not Available tizanidine 2 mg tablet TAKE ONE TABLET BY MOUTH ONCE DAILY AT BEDTIME FOR CERVICOGE MARLON HEADACHE. 03/07 completed Not Available Not Available Not Available oxybutynin chloride ER 10 mg tablet,exte nded release 24 hr TAKE 1 TABLET BY MOUTH DAILY active Not Available Not Available No t Available fluconazole 150 mg tablet TAKE 1 TABLET BY MOUTH ONCE NOW AND REPEAT IN 2 DAYS 03/07 completed Not Available Not Available Not Available famotidine 40 mg tablet Take 1 tablet every day by oral route for 90 days. 07/25 completed Not Available Not Available Not Available estradiol 1 mg tablet TAKE 1 TABLET BY MOUTH DAILY 03/07 completed Not Available Not Available Not Available pantoprazol e 40 mg tablet,diego yed release Take 1 tablet by mouth once daily 07/25 completed Not Available Not Available Not Available esomeprazol e magnesium 40 mg capsule,del ayed release Take 1 capsule every day by oral route for 90 days. 2024 active Not Available Not Available Not Avai lable hydroxyzine HCl 25 mg tablet TAKE 1/2 TO 1 (ONE-HALF TO ONE) TABLET BY MOUTH 4 TIMES DAILY NEEDED 03/07 completed Not Available Not Available Not Available cefuroxime axetil 500 mg tablet TAKE 1 TABLET BY MOUTH TWICE DAILY FOR 10 DAYS 01/27 completed Not Available Not Available Not Available methylpredn isolone 4 mg tablets in a dose pack TAKE BY MOUTH DIRECTED ON INSIDE OF PACKAGE 01/27 completed Not Available Not Available Not Available sulindac 200 mg tablet TAKE 1 TABLET BY MOUTH TWICE DAILY active Not Available Not Available No t Available ezetimibe 10 mg tablet TAKE 1 TABLET BY MOUTH DAILY active Not Available Not Available No t Available Premarin 0.3 mg tablet TAKE 1 TABLET BY MOUTH ONCE DAILY 03/07 completed Not Available Not Available Not Available topiramate 50 mg tablet Take 2.5 tablets every day by oral route. active Not Available Not Available No t Available nitrofurant oin monohydrate /macrocryst als 100 mg capsule TAKE 1 CAPSULE BY MOUTH TWICE DAILY FOR 7 DAYS 01/27 completed Not Available Not Available Not Available darifenacin ER 15 mg tablet,exte nded release 24 hr TAKE 1 TABLET BY MOUTH ONCE DAILY 03/07 completed Not Available Not Available Not Available tizanidine 2 mg capsule TAKE 1 CAPSULE BY MOUTH AT BEDTIME FOR NECK PAIN MAY INCREASE TO 2 CAPSULES AT BEDTIME IF NECK PAIN AND NO SIDE EFFECTS 03/07 completed Not Available Not Available Not Available losartan 100 mg-hydrochl orothiazide 12.5 mg tablet TAKE 1 TABLET BY MOUTH DAILY active Not Available Not Available No t Available Vitals Date Recorded Body height Body mass index (BMI) Body weight Body temperature Oxygen saturation Oxygen saturation in Arterial blood by Pulse oximetry Heart rate Provider Name and Address Organization Details Last Updated DateTime 5 154.94 cm 28.9 kg/m2 26702.6 3 g 97.7 [degF] 97 % 97 % 73 /min Dodie [place] - [place] - [place] & [place] 5 09:53:34 Date Recorded Body height Body mass index (BMI) Body weight Body temperature Oxygen saturation Oxygen saturation in Arterial blood by Pulse oximetry Heart rate Provider Name and Address Organization Details Last Updated DateTime 5 154.94 cm 28.6 kg/m2 75362.6 g 97.3 [degF] 94 % 94 % 75 /min Dodie Soraya [facility] & [place] 5 09:39:44 Date Recorded Body height Body mass index (BMI) Body weight Body temperature Oxygen saturation Oxygen saturation in Arterial blood by Pulse oximetry Heart rate Provider Name and Address Organization Details Last Updated DateTime 5 154.94 cm 27.6 kg/m2 85187.2 g 98 [degF] 97 % 97 % 52 /min Dodie Soraya [facility] & [place] 5 13:35:04 Social History None recorded. Functional Status Question Answer Note LastModified by Organizat ion Details LastModified Time Do you use any illicit or recreational drugs? No [email or web address] Information not available 01/27/2023 What is your level of alcohol consumption? None [email or web address] Information not available 01/27/2023 Mental Status None recorded. Family History Relationship Description Onset Age of this Age Resolved Age Notes LastModified by Organization Details LastModified Time Father No current problems or disability [email or web address] Not available 06/2023 09:33:03 Mother No current problems or disability [email or web address] Not available 06/2023 09:33:03 Notes:brother colon cancer Medical History Condition Response Arthritis Y Hypertension Y GERD/Reflux Y Gynecological HistoryNo gynecological history recorded. Obstetrics History GPAL:G 0 P 0 0 0 0 Past Encounters Encounter ID Performer Location Encounter Start Date Encounter Closed Date Diagnosis/Indication Diagnosis SNOMED-CT Code Diagnosis ICD10 Code Diagnosis IMO Codes Diagnosis Note [id number] LAURI STEPHENS [facility] [place] [address] 10/28/2022 13:08:33 10/28/2022 13:26:46 Sensorineural hearing loss 32900579 H90.3 [id number] Tiff Cunningham NP [facility] [address] [address] 8 01/27/2023 09:03:55 01/27/2023 10:00:23 History of polyp of colon 842315466 Z86.010 Personal hx of colon polyps and family hx colon cancer. Patient plans to follow up with Dr. Garcia for colonoscop y. Constipation 06146054 K5 9.00 Controlled with use of fiber and probiotic. Gastro-eso phageal reflux disease with esophagitis 792001573 K21.00 Controlled with use of Pantoprazo le 40 mg daily. Will send refills today. [id number] LAURI STEPHENS [facility] [place] [address] 02/02/2023 10:01:48 02/02/2023 10:15:11 Sensorineural hearing loss 66530680 H90.3 [id number] Tiff Cunningham NP [facility] [address] [address] 01/26/2024 09:02:25 01/26/2024 10:20:49 Gastro-esophageal reflux disease with esophagitis 215849281 K21.00 Controlled with use of Pantoprazo le 40 mg daily. Will send refills today. Constipation 17386644 K5 9.00 Uncontroll ed with fiber and miralax for the past 1 month. Recommend increased miralax 17 gm po BID with continued use of fiber supplement s. Consider trial of Linzess in the future based on symptoms. History of polyp of colon 534522798 Z86.010 Personal hx of colon polyps and family hx colon cancer. Colonoscop y 10/[address] Garcia with reports of small polyp resected with recommenda tion for repeat colonoscop y 5 years. Records have been requested for review. Abdominal pain 94797212 R10.9 suspect secondary to constipati on. Discussed xray today however patient would like to hold off at this time. Patient to call or be evaluated in the ED with worsening symptoms. [id number] LAURI STEPHENS [facility] [place] [address] 8 07/26/2024 08:52:50 07/26/2024 09:38:35 Mixed conductive and sensorineural hearing loss of left ear 7841714005 9107 H90.A32 [id number] Tiff Cunningham NP [facility] [address] [place] [address] 03/07/2025 09:48:05 03/07/2025 10:22:01 Gastro-esophageal reflux disease with esophagitis 887834272 K21.00 Experienci ng increased episodes of dyspepsia and belching. Currently taking pantoprazo le 40 mg after eating breakfast. I have recommende d starting famotidine 40 mg p.o. every morning and continued use of pantoprazo le to be taken 30 minutes prior to evening meal. Will send refills today. Constipation 35433657 K5 9.00 Controlled with use of MiraLax and fiber supplement s daily. Recommend continued use. History of polyp of colon 480125310 Z86.0100 [id number] Personal hx of colon polyps and family hx colon cancer. Colonoscop y 10/[address] Garcia with reported small polyp resected with recommenda tion for repeat colonoscop y 5 years. Burping 870148558 R14.2 67282 increased belching and dyspepsia over the past 3 months. Some recent improvemen t with use of OTC Yu-Seltz er and Pepto. History of cholecyste ctomy. Reports having liver ultrasound 11/2024 at [facility]. I have recommende d starting famotidine 40 mg every morning as well as continued use of pantoprazo le to be taken 30 minutes prior to evening meal. Recommend trial OTC simethicon e p.r.n. May also consider use of OTC IBgard. I did discuss scheduling EGD to further evaluate however patient would like to hold off at this time. May consider this in the future. [id number] LAURI STEPHENS [facility] [place] [facility] [facility] [address] 03/07/2025 08:46:12 03/07/2025 08:52:18 Mixed conductive and sensorineural hearing loss of left ear 4774669191 9107 H90.A32 [id number] Tiff Cunningham NP [facility] [address] [address] 06/06/2025 09:31:31 06/06/2025 10:10:16 Gastro-esophageal reflux disease with esophagitis 399368553 K21.00 Continues esomeprazo le 40 mg p.o. daily as well as famotidine 40 mg with improved symptoms at this time. Recommend continued use as prescribed . We will send refills today. I have recommende d reflux precaution s with avoidance of known food triggers. Failed treatment with pantoprazo le. Burping 761497485 R14.2 49725 increased belching and dyspepsia over the past several months. No improvemen t with use of Esomeprazo le and famotidine . Recommend EGD to evaluate for erosive gastritis, PUD, hiatal hernia, other. Constipation 94373164 K5 9.00 Controlled with use of MiraLax and fiber supplement s daily. Recommend continued use. History of polyp of colon 958601926 Z86.0100 [id number] Personal hx of colon polyps and family hx colon cancer. Colonoscop y 10/[address] Garcia with reported small polyp resected with recommenda tion for repeat colonoscop y 5 years. Indigestion 507175009 R1 0.13 00907 Several month history increased dyspepsia and belching. No significan t improvemen t with use of esomeprazo le and famotidine . Previously failed treatment with pantoprazo le. Recommend EGD to evaluate for hiatal hernia, erosive gastritis, PUD, other. [id number] Tiff Cunningham NP [facility] [address] [place] [address] 07/25/2025 12:48:26 07/25/2025 13:41:28 Gastro-esophageal reflux disease with esophagitis 568549285 K21.00 Continues esomeprazo le 40 mg p.o. daily with controlled symptoms. Recommend continued use as prescribed . Will send refills today. I have recommende d continued reflux precaution s with avoidance of known food triggers. Failed treatment with pantoprazo le. Indigestion 370764139 R1 0.13 22506 Resolved at this time. Constipation 03897078 K5 9.00 Controlled with use of MiraLax. Recommend continued use. History of polyp of colon 828449257 Z86.0100 [id number] Personal hx of colon polyps and family hx colon cancer. Colonoscop y 10/[address] Garcia with reported small polyp resected with recommenda tion for repeat colonoscop y 5 years. [id number] LAURI STEPHENS [facility] [facility] [address] 08/08/2025 09:36:48 08/08/2025 09:51:50 Mixed conductive and sensorineural hearing loss of left ear 4274109355 9107 H90.A32 Health Concerns Section Related Observation LastModified by Organization Detai ls LastModified Time None Recorded Concern Status LastModified by Organization Details LastModified Time None Recorded Advance Directives Directive None Recorded Payers Insurance Date Sequence Insurance Name Policy Number Policy Mishra Covered Member ID Mishra Member ID Guarantor Name 08/08/2025 2 [employer] (MEDICARE SUPPLEMENT) [facility] [id number] [facility] 08/08/2025 1 [place] [facility] [id number] [facility] 06/06/2025 1 [place] [facility] [id number] [facility] 01/26/2024 1 [place] [id number] A Doron R [place] [id number] [facility] Notes Date Note Type Note Provider Name and Address Organization Details Recorded Time 03/07/2025 text/html Patient was seen today for a hearing aid service. Cleaned and adjusted hearing aids this date. LAURI STEPHENS [address] [facility], [place], [address], [facility] - [place] & [place] 03/07/2025 08:52:13 03/07/2025 text/html Patient returns to clinic today for follow-up on GERD. she continues pantoprazole 40 mg daily for treatment of GERD. She has been experiencing increased episodes of dyspepsia and belching the past 3 months. Symptoms are worse after eating. No food triggers identified. Denies nausea, vomiting, abdominal pain. She has been taking OTC Yu-Gantt p.r.n. as well as Pepto with some improvement. Reports having liver ultrasound 11/2024 at [facility]. History cholecystectomy. She continues MiraLax and fiber supplements for treatment of constipation. Continues to report daily bowel movements at this time. Colonoscopy 10/[address] Garcia and reports small polyp removed with recommendation for repeat colonoscopy 5 years. Tiff Cunningham NP [address] [facility], [address], [place], [address], [facility] 03/07/2025 10:31:04 06/06/2025 text/html Patient returns to clinic today for follow-up on GERD. She continues Esomeprazole and Famotidine for treatment of GERD. She does continue to experience symptoms after eating tomato based products. She has been experiencing increased belching and dyspepsia. Denies dysphagia. Constipation is controlled with use of miralax and fiber. History cholecystectomy.[place] noscopy 10/[address] Garcia and reports small polyp removed with recommendation for repeat colonoscopy 5 years. Tiff Cunningham NP [address] [facility], [address], [place], [address], [facility] & [place] 06/06/2025 11:01:47 07/25/2025 text/html Patient returns to clinic today for follow-up on GERD. She continues Esomeprazole with controlled symptoms at this time. She was previously scheduled for EGD due to complaints of belching and dyspepsia however cancelled as symptoms resolved. She reports recent change in eating habits and watching her portion sizes. Constipation remains well controlled with use of miralax. History cholecystectomy.[place] noscopy 10/[address] Garcia and reports small polyp removed with recommendation for repeat colonoscopy 5 years. Tiff Cunningham NP [address] [facility], [address], [place], [address], [facility] & [place] 07/25/2025 14:07:41 08/08/2025 text/html Ms. Yeboah was seen today for an annual audiologic evaluation due to long-standing, asymmetrical hearing loss (L worse than R). She currently is wearing a hearing aid in the RE. She last had a hearing evaluation in 2023. 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 Audiometric testing revealed a mild, sloping to severe, low through high freq SNHL with good word rec scores. Findings in the LE revealed a mild, sloping to severe, mixed hearing loss from the low through high freq. Fair word rec scores. 1-Discussed findings with Ms. Yeboah. 2-Cleaned and adj. hearing aid this date. 3-F/u hearing testing in 3 months with ENT f/u as planned. KEARA WOODY, AUD [address] [facility], [place], [address], [facility] - [place] & [place] 08/08/2025 10:16:42 OBGyn Episode No OBEpisode recorded.
--- OUTSIDE RECORDS SUMMARY | 2025-08-24 07:21 | XMS_ITS | Continuity of Care Document ---
Author Organization JULIEN - ROSAURA [facility] & [place], [facility] Address [address] [place] [address] Care Team Providers Care Coating Supervisor Name Role Phone TIFF CUNNINGHAM Machinist Set Up Assessment No assessment recorded. Plan of Treatment [...] Lab None recorded. Referral None recorded. Procedures None recorded. Surgeries None recorded. Imaging None recorded. Medication Orders esomepraz ole magnesium 40 mg capsule,d elayed release 2024 025 [email or web address][id number], [address], [id number], 07/25/2025 13:36:21 Patient TargetsNo targets recorded. Patient InstructionsNo instructions [...] Organization Details Recorded Time Hypertensi ve disorder 00065220 Active 2022 Radha Sammi null, [place] - [facility] - [place] & [place] 3 09:32:22 Arthritis 0128908 Active 2022 Radha jackman, [place] - [facility] - [place] & [place] 3 09:32:27 Gastroesop hageal reflux disease 900612095 Active 2022 Radha [place]man, [place] - [facility] - [place] & [place] 3 09:32:34 Constipati on 95956065 Active 2022 Tiff Cunningham NP [address], [address], [place], [address] , [place] - [facility] - [facility] & [place] 3 09:39:34 Gastro-eso phageal reflux disease with esophagiti s 412413892 Active 2022 Tiff Cunningham NP [address], [address], [place], [address] , [place] - [facility] - [facility] & [place] 3 09:39:39 Sensorineu ral hearing loss 48522457 Active 2022 KEARA WOODY, AUD [address] [facility], [place], [address] , [place] [facility] - [facility] & [place] 3 10:15:23 Abdominal pain 32976619 Active 2023 Tiff Cunningham NP [address], [address], [place], [address] , [place] - [facility] - [facility] & [place] 4 09:51:42 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 Procedures Surgical History Date Name Laterality Status Provider Name and Address Organization Details Recorded Time 12/23/19 21 [facility] [place] 01/27/2023 09:34:15 11/22/19 16 EGD/Endoscopy completed Radha [facility] & [place] 01/27/2023 09:34:04 11/22/19 12 Colonoscopy completed Radha [facility] & [place] 01/27/2023 09:33:28 11/22/18 98 Hysterectomy completed [facility] & [place] 01/27/2023 09:33:40 Colonoscopy completed Tiff Cunningham NP [address], [address], [place], [address], [facility] & [place] 01/26/2024 09:55:45 Imaging Results None recorded. Procedure [...] Updated DateTime 5 154.94 cm 27.6 kg/m2 75577.2 g 98 [degF] 97 % 97 % 52 /min Dodie Soraya [place] - [place] - [place] & [place] 5 13:35:04 Social History None recorded. Functional Status Question Answer Note LastModified by Organizat ion Details LastModified Time Do you use any illicit or recreational drugs? No [email or web address] Information not available 01/27/2023 What is your level of alcohol consumption? None [email or web address] Information not available 01/27/2023 Mental Status None recorded. Family History Relationship Description Onset Age of this Age Resolved Age Notes LastModified by Organization Details LastModified Time Father No current problems or disability Not available 06/2023 09:33:03 Mother No current problems or disability [email or web address] Not available 06/2023 09:33:03 Notes:brother colon cancer Medical History Condition Response Arthritis Y Hypertension Y GERD/Reflux Y Gynecological HistoryNo gynecological history recorded. Obstetrics History GPAL:G 0 P 0 0 0 0 Past Encounters Encounter ID Performer Location Encounter Start Date Encounter Closed Date Diagnosis/Indication Diagnosis SNOMED-CT Code Diagnosis ICD10 Code Diagnosis IMO Codes Diagnosis Note [id number] Tiff Cunningham NP [facility] [address] [place] [address] 07/25/2025 12:48:26 07/25/2025 13:41:28 Gastro-esophageal reflux disease with esophagitis 215960316 K21.00 Continues esomeprazo le 40 mg p.o. daily with controlled symptoms. Recommend continued use as prescribed . Will send refills today. I have recommende d continued reflux precaution s with avoidance of known food triggers. Failed treatment with pantoprazo le. Indigestion 287103008 R1 0.13 19895 Resolved at this time. Constipation 60099340 K5 9.00 Controlled with use of MiraLax. Recommend continued use. History of polyp of colon 749276022 Z86.0100 3080013 Personal hx of colon polyps and family hx colon cancer. Colonoscop y 10/[address] Garcia with reported small polyp resected with recommenda tion for repeat colonoscop y 5 years. Health Concerns Section Related Observation LastModified by Organization Detai ls LastModified Time None Recorded Concern Status LastModified by Organization Details LastModified Time None Recorded Payers Encounter Date Sequence Insurance Name Policy Number Policy Mishra Covered Member ID Mishra Member ID Guarantor Name 07/25/2025 1 MEDICARE[place]ICARE[place] Vanesa [place]av[place]on [id number] 1 Vanesa [place] 07/25/2025 2 [employer] [place] (MEDICARE SUPPLEMENT) Vanesa [place] [id number] Vanesa [place] Notes Date Note Type Note Provider Name and Address Organization Details Recorded Time 07/25/2025 text/html Patient returns to clinic today for follow-up on GERD. She continues Esomeprazole with controlled symptoms at this time. She was previously scheduled for EGD due to complaints of belching and dyspepsia however cancelled as symptoms resolved. She reports recent change in eating habits and watching her portion sizes. Constipation remains well controlled with use of miralax. History cholecystectomy.Herbster noscopy 10/[address] Garcia and reports small polyp removed with recommendation for repeat colonoscopy 5 years. Tiff Cunningham NP [address] [place] [address], [address], [place], [address], [facility] - [place] & [place] 07/25/2025 14:07:41 OBGyn Episode No OBEpisode recorded.
--- OUTSIDE RECORDS SUMMARY | 2025-08-24 07:21 | XMS_ITS | Continuity of Care Document ---
Author Organization JULIEN [facility] Address [address] [facility], [place] [address] Care Team Providers Care Placement Specialist Name Role Phone TIFF CUNNINGHAM Leadlighter Assessment No assessment recorded. Plan of Treatment Reminders Order Date Submit Date Provider Last Modified By Organization Details Last Modified Time Details Appointments OV EST 15 025 10:30AM Angelina Bush MD Not available Not available Not available OV EST 15 025 10:45AM LAURI STEPHENS Not available Not available Not available OV EST 15 026 09:45AM Tiff Cunningham NP Not available Not available Not available Lab None record ed. Referral None record ed. Procedures None record ed. Surgeries None record ed. Imaging None record ed. Medication Orders None record ed. Patient TargetsNo targets recorded. Patient InstructionsNo instructions recorded. Reason for Referral None Reported. Results Created Date Observation Date Name Description Value Unit Range Abnormal Flag Note LastModifiedBy Organization Detail LastModifiedTime 08/08/2008/08/2025 audio gram No observ ation record ed. [email or web address] Not Available 2024 13:23:59 Result Notes None recorded. Problems Name Problem SNOMED Code Status Onset Date Resolution Date Notes Provider Name and Address Organization Details Recorded Time Hypertensi ve disorder 68743586 Active 2022 JULIEN Leach [facility] & [place] 3 09:32:22 Arthritis 3147154 Active 2022 JULIEN Leach [place] & [place] 3 09:32:27 Gastroesop hageal reflux disease 312636787 Active 2022 Radha Chapa [place], [place] - [facility] & [place] 3 09:32:34 Constipati on 13514325 Active 2022 Tiff Cunningham NP [address], [address], [place], [address] , [place] [facility] & [place] 3 09:39:34 Gastro-eso phageal reflux disease with esophagiti s 591773521 Active 2022 Tiff Cunningham NP [address], [address], [place], [address] , [place] [facility] & [place] 3 09:39:39 Sensorineu ral hearing loss 15927948 Active 2022 KEARA WOODY, AUD [address] [facility], [place], [address] , [place] [facility] & [place] 3 10:15:23 Abdominal pain 05902913 Active 2023 Tiff Cunningham NP [address], [address], [place], [address] , [place] [facility] & [place] 4 09:51:42 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 Procedures Surgical History Date Name Laterality Status Provider Name and Address Organization Details Recorded Time 12/23/19 21 [facility] [place] 01/27/2023 09:34:15 11/22/19 16 [facility] [place] 01/27/2023 09:34:04 11/22/19 12 Colonoscopy completed Radha VICTORIA [facility] & [place] 01/27/2023 09:33:28 11/22/18 98 Hysterectomy completed Radha VICTORIA [facility] & [place] 01/27/2023 09:33:40 Colonoscopy completed Tiff Cunningham NP [address] [place] [address], [address], [place], [address], [facility] [place] 01/26/2024 09:55:45 Imaging Results None recorded. Procedure [...] Available Not Available No t Available Vitals None Recorded Social History None recorded. Functional Status Question Answer Note LastModified by Organizat ion Details LastModified Time Do you use any illicit or recreational drugs? No [email or web address] Information not available 01/27/2023 What is your level of alcohol consumption? None [email or web address] Information not available 01/27/2023 Mental Status None recorded. Family History Relationship Description Onset Age of this Age Resolved Age Notes LastModified by Organization Details LastModified Time Father No current problems or disability [email or web address] Not available 06/2023 09:33:03 Mother No current problems or disability Not available 06/2023 09:33:03 Notes:brother colon cancer Medical History Condition Response Arthritis Y Hypertension Y GERD/Reflux Y Gynecological HistoryNo gynecological history recorded. Obstetrics History GPAL:G 0 P 0 0 0 0 Past Encounters Encounter ID Performer Location Encounter Start Date Encounter Closed Date Diagnosis/Indication Diagnosis SNOMED-CT Code Diagnosis ICD10 Code Diagnosis IMO Codes Diagnosis Note [id number] Tiff Cunningham NP [facility] [address] [place] [address] 07/25/2025 12:48:26 07/25/2025 13:41:28 Gastro-esophageal reflux disease with esophagitis 668649129 K21.00 Continues esomeprazo le 40 mg p.o. daily with controlled symptoms. Recommend continued use as prescribed . Will send refills today. I have recommende d continued reflux precaution s with avoidance of known food triggers. Failed treatment with pantoprazo le. Indigestion 674904983 R1 0.13 34610 Resolved at this time. Constipation 87068859 K5 9.00 Controlled with use of MiraLax. Recommend continued use. History of polyp of colon 699429301 Z86.0100 4723659 Personal hx of colon polyps and family hx colon cancer. Colonoscop y 10/[address] Garcia with reported small polyp resected with recommenda tion for repeat colonoscop y 5 years. [id number] LAURI STEPHENS [facility] [facility] [place] [address] 08/08/2025 09:36:48 08/08/2025 09:51:50 Mixed conductive and sensorineural hearing loss of left ear 0498932528 9107 H90.A32 Health Concerns Section Related Observation LastModified by Organization Detai ls LastModified Time None Recorded Concern Status LastModified by Organization Details LastModified Time None Recorded Payers Encounter Date Sequence Insurance Name Policy Number Policy Mishra Covered Member ID Mishra Member ID Guarantor Name 08/08/2025 2 [employer] [place] (MEDICARE SUPPLEMENT) Vanesa Yeboah [id number] Vanesa [place] 08/08/2025 1 [place]ARE[place] Vanesa Yeboah [id number] 1 Vanesa [place] Notes Date Note Type Note Provider Name and Address Organization Details Recorded Time 08/08/2025 text/html Ms. Yeboah was seen today [...] f/u as planned. KEARA WOODY, AUD [address] , [place], [address], [facility] - [place] & [place] 08/08/2025 10:16:42 OBGyn Episode No OBEpisode recorded.
--- OUTSIDE RECORDS SUMMARY | 2025-08-24 07:21 | XMS_ITS | Clinical Summary ---
Author Organization [facility] Address [address] [place] [address] Care Team Providers Care Marketing Operations Coordinator Name Role Phone Avinash Hernandez MD Primary Care Provider Allergies Active Allergy Reactions Criticality Noted Date Comments Amoxapine Diarrhea 07/15/2020 Atorvastatin Calcium Myalgia 07/15/2020 Medications estrogens, conjugated, (PREMARIN) 0.45 MG tablet Take 0.45 mg by mouth Daily. Take daily for 21 days then do not take for 7 days. Active sulindac (CLINORIL) 200 MG tablet Take 200 mg by mouth 2 (Two) Times a Day. Active topiramate (TOPAMAX) 50 MG tablet Take 50 mg by mouth 2 (Two) Times a Day. Active dicyclomine (BENTYL) 10 MG capsule Take 10 mg by mouth 4 (Four) Times a Day Before Meals & at Bedtime. Active pantoprazole (PROTONIX) 40 MG EC tablet Take 40 mg by mouth Daily. Active losartan-hydrochl orothiazide (HYZAAR) 100-25 MG per tablet Take 1 tablet by mouth Daily. Active DICLOFENAC PO Take by mouth. A ctive methylPREDNISolon e (MEDROL) 4 MG dose packIndications:L umbar disc herniation with radiculopathy Take as directed on package instructions. 1 each 0 Active pregabalin (Lyrica) 75 MG capsuleIndication s:Lumbar disc herniation with radiculopathy Take 1 capsule by mouth Take As Directed. Take 1 tab PO QHS x 1 week, BID thereafter 60 capsule 0 Active darifenacin (ENABLEX) 15 MG 24 hr tablet Take 15 mg by mouth Daily. Active oxybutynin XL (DITROPAN-XL) 10 MG 24 hr tablet Take 10 mg by mouth Daily. Active aspirin 81 MG chewable tablet Chew 81 mg Daily. Active Active Problems Problem Noted Date Diagnosed Date Chronic nonintractable headache 08/13/2020 Degeneration of lumbar or lumbosacral interverte bral disc 08/07/2020 Lumbar disc disease with radiculopathy 0 Lumbar foraminal stenosis 08/07/2020 Social History Tobacco Use Types Packs/Day Years Used Date Smoking Tobacco: Never Smokeless Tobacco: Never Alcohol Use Standard Drinks/Week Comments Never 0 (1 standard drink = 0.6 oz pur e alcohol) AUDIT-C Answer Date Recorded Q1: How often do you have a drink containing alc ohol? Never 07/15/2020 Average Number of Drinks Not on file 020 Frequency of Binge Drinking Not on file 06/23 Abuse Screen Answer Date Recorded Unsafe at Home or Work/School Not on file Feels Threatened by Someone? Not on file 10/2023 Does Anyone Keep You from Co ntacting Others or Doint Things Outside the Home? Not on file 09/02/2023 Physical Sign of Abuse Present Not on file 1 Housing Stability Answer Date Recorded Current Living Arrangements Not on file 08/22 Potentially Unsafe Housing Conditions Not on elva e 09/02/2023 Family and Community Support Answer Isaias e Recorded Help with Day-to-Day Activities Not on file 09/02/2023 Lonely or Isolated Not on file 09/02/2023 Employment Answer Date Recorded Do you want help finding or keeping work or a ronel b? Not on file 09/02/2023 Disabilities Answer Date Recorded Concentrating, Remembering, or Making Decisions Difficulty Not on file 09/02/2023 Doing Errands Independently Difficulty Not on fi le 09/02/2023 Education Answer Date Recorded Help with school or training? Not on file Preferred Language Not on file 09/02/2023 Comments No Sex and Gender Information Value Date Recorded Sex Assigned at Not on file Legal Sex Female 4:22 PM EDT Gender Identity Not on file Sexual Orientation Not on file Last Filed Vital Signs Vital Sign Reading Time Taken Comments Blood Pressure 100/80 08/13/2020 11:09 AM EDT Pulse 64 08/13/2020 11:09 AM EDT Temperature 36.9 C (98.4 F) 08/13/2020 11:09 AM EDT Respiratory Rate 16 08/13/2020 11:09 AM EDT Oxygen Saturation 98% 08/13/2020 11:09 AM EDT Inhaled Oxygen Concentration - - Weight 70.3 kg (155 lb) 08/26/2020 9:33 AM EDT Height 154.9 cm (5' 1 ) 08/26/2020 9:33 AM EDT Body Mass Index 29.29 08/26/2020 9:33 AM EDT Plan of Treatment Health Maintenance Due Date Last Done Comments DXA SCAN 1956 MAMMOGRAM 1996 COLOGUARD 2001 COLON CANCER SCREENING 5 YEAR SIGMOIDOSCOPY 2001 COLONOSCOPY 2001 [address] CANCER SCREENING 2001 CT COLONOGRAPHY 2001 FECAL OCCULT BLOOD TEST 2001 FIT Testing (1 year) 2001 Pneumococcal Vaccine 50+ (1 of 1 - PCV) 2006 ZOSTER VACCINE (1 of 2) 2006 TDAP/TD VACCINES (2 - Tdap) 02/11/2014 02/12/2004 ANNUAL PHYSICAL 07/15/2020 HEPATITIS C SCREENING 07/15/2020 INFLUENZA VACCINE 06/22/2025 COVID-19 Vaccine (1 - 2023-25 season) 2025 Insurance [facility] P[facility] Care Teams Marketing Operations Coordinator Relationship Specialty Start Date End Date Avinash Hernandez MD [facility] [facility] [address] [place] [address] PCP - General Family Medicine 07/02/20
--- OUTSIDE RECORDS SUMMARY | 2025-08-24 07:22 | XMS_ITS | Patient Health Record ---
Author Organization [facility] Address [address] [place] [id number] Care Team Providers Care Guest Experience Captain Name Role Phone Hermila Hernandez Primary Care [...] 192 Performing Lab: Notes/Report: Test performed by [facility] [address] [place] [address] , [address], [place] [address] Zachary Choudhary MD, Account Relationship Manager CLIA: [id number] Sodium 144 135-145 mmol/L Potassium 3.7 3.5-5.3 [...] 152 Performing Lab: Notes/Report: Test performed by [facility], [address] , [facility], [place] [address] Zachary Choudhary MD, Account Relationship Manager CLIA: [id number] Cholesterol 227 <200 mg/dL Triglycerides 175 <150 [...] Results: 152 Units: mg/dL % Change: -4% Ultrasound: liver Reviewed date:01/01/2025 02:13:07 PM Interpretation:fatty infiltrates of the liver Performing Lab: Notes/Report: fatty infiltrates of the liver CBC Venipuncture (in house) Reviewed date:12/12/2024 08:34:51 [...] 45 Performing Lab: Notes/Report: Test performed by [facility] [address] [place] [address] , [address], [place] [address] Zachary Choudhary MD, Account Relationship Manager CLIA: [id number] Sodium 145 135-145 mmol/L Potassium 4.2 3.5-5.3 [...] 3.8 Performing Lab: Notes/Report: Test performed by [facility] [address] [place] [address] , [facility], [place] [address] Zachary Choudhary MD, Account Relationship Manager CLIA: [id number] Cholesterol 238 <200 mg/dL Triglycerides 185 <150 [...] Interpretation:Normal Performing Lab: Notes/Report: Test performed by [facility], [address] , [address], [place] [address] Zachary Choudhary MD, Account Relationship Manager CLIA: [id number] Albumin/Creatinine Ratio, Urine 7 0-30 ug/m g Microalbumin, Urine, Random 1.4 Creatinine, Urine 197.3 Bone density Reviewed date:12/06/2024 12:23:46 PM Interpretation:declines Performing Lab: Notes/Report: declines Mammogram Reviewed date:12/06/2024 12:23:56 PM Interpretation:declines Performing Lab: Notes/Report: declines Medications Medication SIG (Take, Route, Frequency, Duration) Notes Start Date End Date Status Hyzaar 100-12.5 MG 1 tab(s) orally once a day; Duration: 90 days Active Slow-Mag 2 TABS AM Active Aspirin 81 MG 1 tab(s) orally once a day Active oxyBUTYnin Chloride ER 10 MG 1 tablet Orally Once a day; Duration: 90 days Active Esomeprazole Magnesium 40 MG 1 capsule 1/2 to 1 hour before morning meal Orally Once a day Active Estradiol 1 MG 1 tablet Orally Once a day; Duration: 30 day(s) Not-Taking Probiotic - as directed Orally Active tiZANidine HCl 2 MG 1 tab(s) orally Two times a day Not-Taking ZyrTEC Allergy 10 MG 1 tablet Orally Onc e a day Active Fluticasone Propionate 50 MCG/ACT 2 spray in each nostril Nasally Once a day Active Topiramate 50 MG 2.5 tabs orally at bedtime; Duration: 30 days Active Zetia 10 MG 1 tablet Orally Once a day; Duration: 90 days 06/06/2025 Active Sulindac 200 MG 1 tab(s) orally 2 ti mes a day; Duration: 90 days Active oxyBUTYnin Chloride ER 10 MG 1 tablet Orally daily Active Immunizations Vaccine Route Administration Date Status Comme nts xFluzone (6mos and older)-trivalent IM Intramuscular 09/26/2014 Administered Shingrix Unknown 03/16/2024 Administered Shingrix Unknown 05/19/2024 Administered Fluzone Intradermal Quad private(18-64yrs) ID Intradermal 09/30/2015 Administered DT, 7 YEARS OR OLDER Unknown 02/12/2004 Administered COVID 19 Moderna Unknown 02/11/2021 Administered COVID 19 Moderna Unknown 03/11/2021 Administered Problems Problem Type SNOMED Code ICD Code Onset Dates Problem Status W/U Status Risk Notes Problem Sinusitis (45139890) Sinusitis (J32.9) Active confirmed Problem Essential hypertension (52664098) Essential hypertension (I10) Active confirmed Problem Overactive urinary bladder (disorder) (315818190) OAB (overactive bladder) (N32.81) Active confirmed Problem Primary generalised osteoarthritis (361848466) Primary generalized (osteo)arthritis (M15.0) Active confirmed Problem Gastroesophageal reflux disease without esophagitis (100028268) Gastroesophageal reflux disease without esophagitis (K21.9) Active confirmed Problem Inflammatory and toxic neuropathy (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) Peripheral polyneuropathy (G62.9) Active confirmed Problem History of cholecystectomy (441342332) Status post cholecystectomy (Z90.49) Active confirmed Problem Neuropathy (630358393) Neuropathy (G62.9) Active confirmed Problem Sciatica (29048488) Right sided sciatica (M54.31) Active confirmed Problem Podagra (15898384) Podagra (M10.9) Active confi rmed Problem Migraine variant with headache (disorder) (663374329) Migraine headache (G43.909) Active confirmed Problem Dyslipidemia (867535247) Dyslipidemia (E78.5) Active confirmed Problem Adjustment disorder with mixed emotional features (98718935) 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) Active confirmed Problem Sensorineural hearing loss, bilateral (336700284) Sensorineural hearing loss (SNHL) of both ears (H90.3) Active confirmed Vital Signs Heart Rate 60 /min 06/05/2025 Blood pressure diastolic 72 mm Hg 06/05/2025 Height 61.50 in 06/05/2025 Blood pressure systolic 112 mm Hg 06/05/2025 Weight 150.8 lbs 06/05/2025 BMI 28.03 kg/m2 06/05/2025 Encounters Encounter Location Date Provider Diagnosis [facility] [address] [facility] [address] [place], [place] [id number] 12/05/2024 R Balta Hernandez Adult general medica l examination Z00.00 ; OAB (overactive bladder) N32.81 ; Essential hypertension I10 ; Primary generalized (osteo)arthritis M15.0 ; Screening for lipid disorders Z13.220 ; Gastroesophageal reflux disease without esophagitis K21.9 and BMI 27.0-27.9,adult Z68.27 [facility] [address] [facility] [address] [place], [place] [id number] 06/05/2025 R Balta Hernandez OAB (overactive blad fish) N32.81 ; Essential hypertension I10 ; Primary generalized (osteo)arthritis M15.0 ; Screening for lipid disorders Z13.220 ; Gastroesophageal reflux disease without esophagitis K21.9 ; Dyslipidemia E78.5 and BMI 28.0-28.9,adult Z68.28 [facility] [address] [facility] [address] [place], [place] [id number] 12/12/2024 Hermila Hernandez Abnormal liver funct ion R94.5 [facility] [address] [facility] [address] [place] [id number] 01/01/2025 Hermila Yafleet [facility] [address] [facility] [address] [place] [id number] 06/06/2025 Hermila Hernandez Assessments Encounter Date Diagnosis (ICD Code) Assessment Notes Treatment Notes Treatment Clinical Notes Section Notes 12/05/2024 OAB (overactive bladder) (ICD-10 - N32.81) 06/05/2025 OAB (overactive bladder) (ICD-10 - N32.81) 12/05/2024 Adult general medical examination (ICD-10 - Z00.00) Patient instructed to return to office Annually for Annual Wellness Visits to include annual screenings of Pain assessment, Functional Ability assessment, Cognitive Ability assessment, Fall Risk assessment, Depression screening and Bladder control screening. 06/05/2025 Essential hypertension (ICD-10 - I10) 12/12/2024 Abnormal liver function (ICD-10 - R94.5) 06/05/2025 Primary generalized (osteo)arthritis (ICD-10 - M15.0) 12/05/2024 Essential hypertension (ICD-10 - I10) 12/05/2024 Primary generalized (osteo)arthritis (ICD-10 - M15.0) 06/05/2025 Screening for lipid disorders (ICD-10 - Z13.220) 06/05/2025 Gastroesophageal reflux disease without esophagitis (ICD-10 - K21.9) 12/05/2024 Screening for lipid disorders (ICD-10 - Z13.220) 12/05/2024 Gastroesophageal reflux disease without esophagitis (ICD-10 - K21.9) 06/05/2025 Dyslipidemia (ICD-10 - E78.5) 06/05/2025 BMI 28.0-28.9,adult (ICD-10 - Z68.28) 12/05/2024 BMI 27.0-27.9,adult (ICD-10 - Z68.27) Plan Of Treatment Next Appt Details Provider Name:Hermila David, 12/06/2025 09:30:00 AM, [address] [facility], [address], [place], [id number], Insurance Providers Payer Name Payer Address Payer Phone Subscriber Number Group Number Insured Name Patient Relationship to Insured Coverage Start Date Coverage End Date MEDICARE PART B [address] [address] [place] [id number] ROBERT LandaXIMENA Self - patient is the insured [employer] [place] [id number] JESSICACATHIE LandaXIMENA Self - patient is the insured Medications Administered Medication Instructions Date of Administration Dosage Notes Depo- Medrol 40 mg/ml 09/24/2020 1 mL Dexamethasone 03/02/2019 1 mL Medical (General) History Medical History History ICD Code hypertension Migraine headache Cervicogenic headaches GERD HLP Seasonal allergies OAB Declines flu and Prevmar vaccines 11/2024 Declines health maintenance 05/2025 Surgical History Surgery Date(Month/Year) cyst on left breast TASO with incidental appendectomy 1996 colonoscopy 1997,2002,2012 lap cholecystectomy/ [facility] 12/2020 Hospitalization History Reason Date(Month/Year) [facility]-acute pancreatitis, acute cholecysti tis 01/05/21 see above
--- NOTE | 2025-08-24 07:45 | MR_ITS ---
FINAL REPORT CLINICAL HISTORY: Change in headache pattern, severe headache. worsening headaches COMPARISON: None FINDINGS: Multi planar MR imaging was obtained through the brain without contrast. The midline structures appear intact. There is no evidence of Chiari malformation. On T2 and flair axial images the brain parenchyma is homogeneous. On diffusion-weighted images there is no evidence of restricted diffusion. The visualized paranasal sinuses demonstrate normal signal voids. The seventh and eighth nerve root complexes are intact. IMPRESSION: Essentially unremarkable nonenhanced brain MRI. Reviewed, Interpreted and Dictated by Davey Don MD Transcribed by Kayla Coley Authenticated and [facility]
== END 2025-08-24 23:59 | disposition home or self-care (01) ==
LOC: RAD 07:19
PROVIDERS: Visit Provider Specialist
DX: G43.709 Chronic migraine without aura, not intractable, without status migrainosus (principal); G44.86 Cervicogenic headache; G47.34 Idiopathic sleep related nonobstructive alveolar hypoventilation
CPT/HCPCS: 70551

== ENCOUNTER 2025-10-16 10:10 | Outpatient (CLI) | payer MEDICARE, OTHER, SELFPAY ==
--- NOTE | 2025-10-16 10:12 | XR_ITS ---
FINAL REPORT CLINICAL HISTORY: Evaluation of right foot pain FINDINGS: AP, oblique and lateral views of the right foot were obtained. There is no prior exam for comparison. There is no acute fracture or dislocation. The joint spaces are preserved. Soft tissues are unremarkable. IMPRESSION: No acute osseous abnormality of the right foot. Reviewed, Interpreted and Dictated by Jazmyne Chapin MD Transcribed by Tabby Roblero Authenticated and [facility]
--- OUTSIDE RECORDS SUMMARY | 2025-10-16 10:13 | XMS_ITS | Clinical Summary ---
Author Organization [facility] Address [address] [place] [address] Care Team Providers Care Tare Weigher Name Role Phone Avinash Hernandez MD Primary [...] Vaccine (1 - 2023-25 season) 2025 Insurance [facility] PPO Care Teams Tare Weigher Relationship Specialty Start Date End Date Avinash Hernandez MD [address] [facility] [address] [place] [address] PCP - General Family Medicine 07/02/20
== END 2025-10-16 23:59 ==
LOC: RAD 10:11
PROVIDERS: PCP Family Medicine; Visit Provider Podiatrist
DX: M79.671 Pain in right foot (principal)
CPT/HCPCS: 73630

== ENCOUNTER 2025-10-25 10:49 | Outpatient (CLI) | payer MEDICARE, OTHER, SELFPAY ==
--- OUTSIDE RECORDS SUMMARY | 2025-10-25 11:20 | XMS_ITS | Clinical Summary ---
Author Organization [facility] Address [address] [place] [address] Care Team Providers Care Pole Setter Name Role Phone Avinash Hernandez MD Primary [...] TEST 2001 FIT Testing (1 year) 2001 TDAP/TD VACCINES (1 - Tdap) 02/13/2004 02/12/2004 Pneumococcal Vaccine 50+ (1 of 1 - PCV) 2006 ZOSTER VACCINE (1 of 2) 2006 ANNUAL PHYSICAL 07/15/2020 HEPATITIS C SCREENING 07/15/2020 INFLUENZA VACCINE 06/22/2025 COVID-19 Vaccine (1 - 2023-25 season) 2025 Insurance [facility] PPO Care Teams Pole Setter Relationship Specialty Start Date End Date Avinash Hernandez MD [address] [facility] [address] [place] [address] PCP - General Family Medicine 07/02/20
--- NOTE | 2025-10-25 11:30 | US_ITS ---
FINAL REPORT CLINICAL HISTORY: Evaluation of symptoms involving Circulatory system FINDINGS: ANKLE-BRACHIAL PRESSURE INDICES Pressure indices are as follows: RIGHT LOWER EXTREMITY: Ankle-brachial pressure index: 1.12 Comments: Normal LEFT LOWER EXTREMITY: Ankle-brachial pressure index: 1.09 Comments: Normal IMPRESSION: No evidence of significant obstructive peripheral vascular disease of the lower extremities Reviewed, Interpreted and Dictated by Davey Don MD Transcribed by Tabby Roblero Authenticated and [facility]
== END 2025-10-25 23:59 | disposition home or self-care (01) ==
LOC: RT 10:50
PROVIDERS: PCP Family Medicine; Visit Provider Podiatrist
DX: R09.89 Other specified symptoms and signs involving the circulatory and respiratory systems (principal)
CPT/HCPCS: 93923